=== PATIENT | female | born 1940 | race Caucasian/White ===

== ENCOUNTER 2022-08-07 16:14 | Outpatient (CLI) | payer MEDICARE, BC, SELFPAY ==
--- NOTE | 2022-08-07 16:15 | CRLHL7_ITS ---
For Patients: As a result of the 21st Century Cures Act, medical imaging exams and procedure reports are released immediately into your electronic medical record. You may view this report before your referring provider. If you have questions, please contact your health care provider. EXAM: PET-CT SKULL BASE TO THIGH CLINICAL INFORMATION: 81-yo female with a history of breast cancer with prior lumpectomy 1998. Left axillary surgical excision in 2010. Prior chemotherapy and radiation therapy. Current oral chemotherapy as of December 2021. Patient is referred for further characterization/response assessment. TECHNIQUE: Radiopharmaceutical: 12.0 mCi of 18F-FDG Uptake time: 56 minutes Blood glucose level at the time of injection: 91 mg/dL Field of view: Skull base to mid-thighs Intravenous contrast: Not administered Oral contrast: Not administered CT protocol: The low-dose, free-breathing, noncontrast CT performed as part of this study is designed for the purposes of attenuation correction and lesion localization, and it is neither sufficient, nor it should be substituted for diagnostic purposes. COMPARISON: PET-CT 02/20/2022 FINDINGS: Physiologic background liver standardized uptake value (SUV mean and SUV max) reported for comparison between PET studies: 2.3 and 3.0. Visualized head and neck: Physiologic uptake in the visualized portions of the brain. Low-attenuation thyroid nodules difficult to see given motion. No abnormal uptake. Head and neck lymph nodes: No abnormal uptake. Lungs: Anterior right upper lobe and biapical scarring. No abnormal right lung uptake. Increased size and uptake of multiple left lung nodules. For example: -anterior left upper lobe nodule, 0.7 cm, SUV 8.8 (fused PET-CT image 63). Previously 0.5 cm, SUV max 4.7. -lateral left upper lobe nodule, 0.8 cm, SUV 11.0 (fused PET-CT image 79). Previously 0.6 cm, SUV max 6.1. -left upper lobe perifissural nodule, 0.7 cm, SUV max 5.4 (fused PET-CT image 86). Previously 0.5 cm, SUV max 2.0. -lateral left lower lobe pleural based nodule, 0.7 cm, SUV max 4.1 (fused PET-CT image 93). Previously 0.5 cm, SUV max 2.8. Thoracic lymph nodes: New avid left perihilar and hilar lymph nodes are suspicious. Existing left axillary nodule/mass and subpectoral benji uptake demonstrate variable activity. No new right axillary lymph nodes. For example: -intensely irregular left axillary mass/nodule, 2.1 x 1.7 cm, SUV max 17.0 (fused PET-CT image 64). Previously 1.8 x 1.5 cm, SUV max 20.3. -left perihilar benji uptake, not measurable, SUV max 6.2 (PET-CT image 79) -left hilar benji uptake, 0.8 cm short axis, SUV max 10.8 (fused PET-CT image 84). Other chest findings: Scattered coronary vascular and thoracic aortic calcifications. -postlumpectomy changes lateral left breast with no suspicious uptake. Slightly more conspicuous left breast skin thickening, SUV max 1.4. Previously 1.2. Attention on exam. -scattered areas of uptake within the thoracic esophagus are nonspecific, possibly reactive/inflammatory or related to reflux. Hepatobiliary: No abnormal liver uptake. More conspicuous uptake along the inferior and medial margin of the right lobe localizes to the gallbladder without obvious noncontrast CT abnormality, SUV max 4.4 (fused PET-CT image 149). Uptake may be misregistered. Previously slightly different location, SUV max 4.3. Directed ultrasound should be considered. Spleen: No abnormal uptake. Pancreas: No abnormal uptake. Adrenals: No abnormal uptake. Kidneys and bladder: No abnormal uptake. Physiologically excreted tracer activity within the renal collecting systems and urinary bladder. Bowel and peritoneum: Similar nondistended appearance of the upper body and fundus of the stomach. No outlet obstruction. No suspicious small or large bowel uptake. Normal appendix. Pelvic organs: Prior hysterectomy. No abnormal uptake. Abdominopelvic lymph nodes: No hypermetabolic abdominopelvic lymph nodes. Musculoskeletal, soft tissues, skin: No new tracer avid osseous lesions. Similar mild uptake in or along the margins of the left anterior 2nd rib, SUV max 2.4. Previously 2.1. Degenerative uptake in the shoulders and spine. Other: Scattered aortoiliac atherosclerotic vascular calcifications. IMPRESSION: 1. Postsurgical and post treatment changes of the left breast with slightly more conspicuous skin thickening and uptake. No new or suspicious uptake at the lumpectomy site. 2. Mildly increased size and decreased uptake of an intensely avid left axillary soft tissue mass/nodule. 3. Mildly increased size and uptake of multiple left lung nodules is consistent with mild interval progression of pulmonary metastatic disease. 4. New moderate to intense uptake within nonenlarged left hilar/perihilar lymph nodes is suspicious. 5. More conspicuous uptake along the medial and inferior liver margin localizing to the region of the gallbladder without definitive noncontrast CT abnormality. Consider directed ultrasound for further characterization. 6. No new tracer avid osseous lesions. Similar mild uptake within or along the margins of the left 2nd rib. Dictated by Syd Bright MD @ 08/10/2022 9:13:57 PM (Electronically Signed)
== END 2022-08-07 16:15 | disposition home or self-care (01) ==
LOC: RAD 16:15
PROVIDERS: PCP Family Medicine; Visit Provider Internal Medicine Hematology & Oncology
DX: C50.919 Malignant neoplasm of unspecified site of unspecified female breast (principal); C77.3 Secondary and unspecified malignant neoplasm of axilla and upper limb lymph nodes; R91.8 Other nonspecific abnormal finding of lung field; R59.9 Enlarged lymph nodes, unspecified
CPT/HCPCS: 78815; A9552

== ENCOUNTER 2022-08-15 09:54 | Outpatient (CLI) | payer MEDICARE, BC, SELFPAY | END 2022-08-15 09:55 | disposition home or self-care (01) | LOC: RAD 09:55 | PROVIDERS: PCP Family Medicine; Visit Provider Internal Medicine Hematology & Oncology | DX: Z79.899 Other long term (current) drug therapy (principal); Z51.81 Encounter for therapeutic drug level monitoring | CPT/HCPCS: 93306 ==

== ENCOUNTER 2022-09-01 06:07 | Day surgery (SDC) | payer MEDICARE, BC, SELFPAY ==
[2022-09-01 06:57] VITALS: BP 141/60; PULSE 52; RESP 16; TEMP 36.1; O2SAT 95; BMI 25.7
[2022-09-01] MEDS: LACTATED RINGERS 1000 ML 1,000 ML 100 ML IV (07:00)
[2022-09-01] MEDS: SODIUM CHLORIDE 0.9 % (FLUSH) 10 ML SYRINGE IVF (07:00)
--- NOTE | 2022-09-01 07:13 | CRLHL7_ITS ---
For Patients: As a result of the Century Cures Act, medical imaging exams and procedure reports are released immediately into your electronic medical record. You may view this report before your referring provider. If you have questions, please contact your health care provider. Indication: PORTACATH PLACEMENT Technique: One fluoroscopic image of the chest. Fluoroscopic time 16.9 seconds. IMPRESSION: Fluoroscopic guidance for Port-A-Cath placement. Dictated by Ricardo Schaefer MD @ 09/01/2022 9:00:11 AM (Electronically Signed)
--- NOTE | 2022-09-01 07:39 | PM.GSCN ---
History of Present Illness Consult details Date Seen: 09/01/22 Consult date: 09/01/22 Narrative: The patient is an 81-year-old female with a history of recurrent breast cancer, initially treated in 1998 as well as again in 2010 when she developed a left axillary recurrence. She has had an additional recurrence with lung nodule and progression of disease and therefore has been offered chemotherapy. She is here today for port placement. She has had chemotherapy in the past but has never had a port. No chest pain or shortness of breath. No upper respiratory symptoms. 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 She drinks rare alcohol Smoking Status: Never smoker Do you use any of these nicotine containing products: None How often do you have a drink containing alcohol: never AUDIT-C Alcohol total score: 0 Non-prescribed substance use: denies use Caffeine: No Are you using contraception or practicing any form of control: No Meds Home Medications and Allergies Home Medications Medication Instructions Recorded Confirmed Type aspirin 81 mg tablet,delayed 81 mg PO QDAY 07/02/22 09/01/22 History release (Adult Low Dose Aspirin) bismuth subsalicylate 262 mg 1 tab PO Q30-60M PRN 07/02/22 09/01/22 History tablet (Pepto-Bismol) calcium carb-ergocalciferol (vit 1 tab PO BID 07/02/22 09/01/22 History D2) 600 mg calcium-200 unit tablet ferrous gluconate 324 mg (38 mg 324 mg PO DAILY 08/27/22 09/01/22 History iron) tablet metoprolol tartrate 25 mg tablet 12.5 mg PO Q12H 08/27/22 09/01/22 History Allergies Allergy/AdvReac Type Severity Reaction Status Date / Time No Known Drug Allergies Allergy Verified 09/01/22 06:55 Exam Narrative: Exam Narrative: General appearance: Alert, cooperative, and in no distress Eyes: PERRLA, eye lids clear, and sclera white HENT Head: Normocephalic Neck: Pulmonary: Clear to auscultation bilaterally Chest: no scars Cardiovascular Heart: Regular rate Extremities: warm and well perfused Musculoskeletal: Extremities: Upper: Both upper extremities have normal joint range of motion and intact strength. Lower: Both lower extremities have normal joint range of motion and intact strength. Skin: Normal skin color, texture, and turgor. No rashes or lesions. Neurologic: No focal deficits Psychiatric: Alert, oriented, cooperative, normal affect. Const: Vital Signs, click to edit/add: Vital Signs - 24 hr 09/01/22 06:57 Temperature 97.0 F L Pulse Rate 52 L Respiratory Rate 16 Blood Pressure 141/60 H Pulse Oximetry 95 Results Labs Labs: All other labs normal. Imaging Additional studies: PET-CT 08/07/2022: IMPRESSION: 1. Postsurgical and post treatment changes of the left breast with slightly more conspicuous skin thickening and uptake. No new or suspicious uptake at the lumpectomy site. 2. Mildly increased size and decreased uptake of an intensely avid? left axillary soft tissue mass/nodule. 3. Mildly increased size and uptake of multiple left lung nodules is consistent with mild interval progression of pulmonary metastatic disease. 4. New moderate to intense uptake within nonenlarged left hilar/perihilar lymph nodes is suspicious. 5. More conspicuous uptake along the medial and inferior liver margin localizing to the region of the gallbladder without definitive noncontrast CT abnormality. Consider directed ultrasound for further characterization. 6. No new tracer avid osseous lesions. Similar mild uptake within or along the margins of the left 2nd rib. 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 Images were reviewed. There are no contraindications for surgery today. We did discuss risks benefits and recovery from surgery. Patient signed informed consent in is agreeable to proceed.
[2022-09-01] MEDS: CEFAZOLIN 1 GM inj IVP (07:42)
[2022-09-01] MEDS: BUPIVACAINE 0.5% 30 ML INJECTION (07:56)
[2022-09-01] MEDS: 0.9% SODIUM CHL 50 ML VIAL INJECTION (08:05)
--- NOTE | 2022-09-01 08:24 | CRLHL7_ITS ---
For Patients: As a result of the Century Cures Act, medical imaging exams and procedure reports are released immediately into your electronic medical record. You may view this report before your referring provider. If you have questions, please contact your health care provider. INDICATION: s/p port TECHNIQUE: Chest 1 view COMPARISON: CT-PET 02/20/2022 FINDINGS: Interval placement of right-sided Port-A-Cath with the tip in the distal SVC. No pneumothorax. No pleural effusion. Pulmonary parenchyma appears similar. Stable mediastinum. IMPRESSION: Status post port placement without pneumothorax. Dictated by Ricardo Schaefer MD @ 09/01/2022 9:12:05 AM (Electronically Signed)
[2022-09-01 08:25] VITALS: BP 95/70; PULSE 51; RESP 16; TEMP 36.2; O2SAT 97
--- NOTE | 2022-09-01 08:30 | W.ANESCHARGE ---
Anesthesia Charges Start Date/Time Anesthesia Start Date: 09/01/22 Anesthesia Start Time: 07:34 Stop Date/Time Anesthesia Stop Date: 09/01/22 Anesthesia Stop Time: 08:28 Summary Emergency: No Extremes of Age: Over 69-CPT 00128
[2022-09-01 08:45] VITALS: BP 98/57; PULSE 60; RESP 16; TEMP 36.1; O2SAT 96
--- NOTE | 2022-09-01 08:46 | P.GSOP_ITS ---
Operative Note Date of procedure: 09/01/22 Type of Procedure: Right IJ port placement with ultrasound and fluoroscopic guidance Procedure Description: After discussing the risks and benefits of the procedure, the patient signed informed consent.? The operative site was marked and the patient was brought to the operating room and placed on the operating table in supine position.? Care was taken to pad the patient's pressure points.?? The patient was then given sed ation by anesthesia.?? The operative site was then prepped and draped in the usual sterile fashion.? A time-out was then performed. The patient's right internal jugular vein was visualized using ultrasound. Local anesthetic was injected into the skin overlying the vein. This was accessed percutaneously using ultrasound guidance. Using Seldinger technique, a guidewire was threaded through the needle. A skin lona was made around the wire. Next, local anesthetic was injected into the skin below the clavicle and along the proposed tract to the neck incision. A skin incision was then made with a 15 blade and a pocket created in the subcutaneous tissue with cautery. A tunneler was then used to thread the catheter from the chest wall pocket to the neck incision. Once this was done fluoroscopy was brought into the field. Over the wire the tract was dilated using fluoroscopy. The wire and the dilator were then removed leaving the sheath in the vein. Through this, the catheter was threaded. Using fluoroscopy, the catheter was positioned into the distal SVC. The catheter was noted to flush and aspirate easily. The catheter was then connected to the port. The port was placed in the pocket and secured in place with 2 0 Prolene sutures. It was noted to flush and aspirate easily. The skin was closed with absorbable suture. Sterile dressings were applied. The port was then left access for chemotherapy to be given later today. Instrument sponge and needle counts were correct at the end of the case. The patient was woken and taken to the PACU in stable condition. ? The patient tolerated the procedure well. Findings: Right IJ power port placed in the low SVC. Implants: Power port Anesthesia: MAC Surgeon: Stephanie Reyna MD Estimated blood loss (mL): 1 Condition: stable Disposition: same day
[2022-09-01 09:15] VITALS: BP 104/52; PULSE 60; TEMP 36.3; O2SAT 96
[2022-09-01] MEDS: TRAMADOL HCL 50 MG TABLET PO (09:29)
--- NOTE | 2022-09-01 09:42 | SUR.PHASEII ---
eating toast and drinking coffee, tolerating well. reviewed discharge instructions with patient and patients daughter in law. no further questions or concerns. vitals stable, port access patent, dressing intact.
== END 2022-09-01 10:31 | disposition home or self-care (01) ==
PROVIDERS: PCP Family Medicine; Visit Provider Surgery
PROC: (CPT 36561; principal; 2022-09-01 07:30)
DX: Z45.2 Encounter for adjustment and management of vascular access device (principal); C50.912 Malignant neoplasm of unspecified site of left female breast; C77.3 Secondary and unspecified malignant neoplasm of axilla and upper limb lymph nodes; C78.02 Secondary malignant neoplasm of left lung
CPT/HCPCS: 36561; 00532; 36591; 71045; 76000; 80053; 85025; 87426; 96376; 96413; 96415; 99100; 99211; 99213; A9270; C1788; J0690; J1100; J1200; J2405; J2704; J3490; J7050; J7120; Q2050; S0028

== ENCOUNTER 2022-10-28 10:48 | Inpatient (IN) | payer MEDICARE, BC, SELFPAY ==
[2022-10-28] VITALS (59 sets, daily range): BP systolic 74–137; BP diastolic 46–100; PULSE 32–154; RESP 16; TEMP 35.8–36.8; O2SAT 86–100; BMI 26.5; BMI 25.6
[2022-10-28 11:49] LABS: HCO3 VBG 32 mmol/L (21-28); Lactate* 0.8 mmol/L (0.5-1.9); PCO2 VBG 51 mmHG (40-50); PO2 VBG 41.4 mmHG (25-47); pH VBG 7.414 (7.32-7.43)
[2022-10-28 11:50] LABS: Basophils Percent Auto 0.5 % (0.0-3.0); Eosinophils Percent Auto 2.3 % (0.0-7.0); Hematocrit 32.6 % (33.0-51.0); Hemoglobin* 10.7 gm/dL (12.0-16.0); Immature Granulocytes Pct Auto 0.2 %; Lymphocytes Percent Auto 31.5 % (20-44); Mean Corpuscular HGB Conc 33 gm/dL (32-36); Mean Corpuscular Hemoglobin 32 pg (26-34); Mean Corpuscular Volume 97 fL (80-100); Neutrophils Percent Auto 55.5 % (42.0-72.0); Platelet Count* 324 K/uL (140-440); RDW Coefficient of Variation % 14.2 % (11.5-15.5); Red Blood Count 3.37 m/uL (4.00-5.20); White Blood Count* 4.32 K/uL (4.50-11.00)
[2022-10-28 11:52] LABS: Slide Review Reflex No
[2022-10-28 12:03] LABS: PCR FLU A Negative PCR FLU A (Negative); PCR FLU B Negative PCR FLU B (Negative); PCR RSV Negative PCR RSV (Negative)
[2022-10-28 12:09] LABS: Albumin* 3.9 g/dL (3.3-5.0); Chloride* 100 mmol/L (96-114); Sodium* 138 mmol/L (135-149)
[2022-10-28 12:10] LABS: Potassium* 3.6 mmol/L (3.6-5.1)
[2022-10-28 12:11] LABS: SARS PCR* Negative SARS-CoV-2 (Negative)
[2022-10-28 12:13] LABS: Alanine Aminotransferase* 20 U/L (4-35); Alkaline Phosphatase* 67 U/L (40-150); Aspartate Amino Transferase* 26 U/L (12-35); Bilirubin Direct* 0.2 mg/dL (0.0-0.5); Bilirubin Total* 0.5 mg/dL (0.1-1.5); Blood Urea Nitrogen* 16 mg/dL (7-30); Calcium* 9.2 mg/dL (8.4-10.6); Carbon Dioxide* 31 mmol/L (20-32); Creatinine* 0.6 mg/dL (0.5-1.5); Est. Creatinine Clearance* 39.03; Estimated Glomerular Filt Rate 90 ml/min; Glucose* 95 mg/dL (60-115); Total Protein* 6.9 g/dL (6.0-8.3)
[2022-10-28] MEDS: METOPROLOL TARTRATE 1 MG/ML inj 5 MG IVP (12:14)
[2022-10-28 12:15] LABS: C Reactive Protein* 3.3 mg/dL (0.5-1.0)
[2022-10-28] MEDS: 0.9 % SODIUM CHLORIDE 1000 ml 1,000 ML IV (12:15)
[2022-10-28 12:19] LABS: Appearance Urine Clear (Clear); Bilirubin Urine Negative (Negative); Blood Urine Negative (Negative); Color Urine Dark yellow (Yellow); Glucose Urine Negative (Negative); Ketones Urine Negative (Negative); Leukocyte Esterase Urine Negative (Negative); Nitrite Urine Negative (Negative); Protein Urine Negative (Negative); Specific Gravity Urine 1.025 (1.000-1.030); Urobilinogen Urine 0.2 (0.2-1.0); pH Urine 5.5 (5.0-8.5)
[2022-10-28 12:19] LABS: INR 1.01 (0.91-1.10); Prothrombin Time 13.9 Seconds
[2022-10-28 12:29] LABS: RBC Urine 0-2 (0-2); WBC Urine 0-2 (0-5)
[2022-10-28] MEDS: dilTIAZem 5 MG/ML inj 10 MG IVP (13:50)
[2022-10-28] MEDS: cefTRIAXone 1 GM in 0.9 % SODIUM CHLORIDE Mini-bag 100 ML IVPB (13:50)
[2022-10-28] MEDS: 0.9 % SODIUM CHLORIDE 1000 ml 1,000 ML 100 ML IV (14:45)
[2022-10-28] MEDS: dilTIAZem 30 MG TABLET PO (15:00)
--- NOTE | 2022-10-28 15:02 | ED_ITS ---
HPI - General Adult General Date Seen: 10/28/22 Chief complaint: Lower Extremity Swelling Stated complaint: Colitis right foot Time Seen by Provider: 10/28/22 11:08 Source: patient, family, old records reviewed and other Limitations: no limitations History of Present Illness HPI narrative: Patient is an 81-year-old woman sent here from clinic for further evaluation and treatment of persistent cellulitis. She has been dealing with cellulitis of the right lower extremity since the end of September, at which time she was initially started on amoxicillin. She did not respond and was changed to doxycycline. She had been seen in [place] on October 24, those records are reviewed. At that time she had a venous Doppler which was negative for DVT. Labs were unremarkable. She was advised to follow up with primary care which she did today. At the clinic she was noted to have mildly elevated temperature 99.7?. She denies fevers or chills at home. No nausea or vomiting, no weakness. She feels overall the leg looks better today than it has, although she is concerned about increased weeping from the open area. She continues to have some erythema in the right lower leg, she has some pain in that area. She has also developed an area of open skin over the past week. She was noted to be tachycardic in clinic as well. She does have a history of atrial fibrillation. She is on Eliquis. She does have a history of breast cancer and is undergoing treatment for that. She does not have a history of diabetes. She is here today with her [id number] who provides help with history in terms of the time line of when she was at [place] [id number], when she was at urgent care, when medications were started etcetera. Related Data Home Medications Medication Instructions Recorded Confirmed aspirin 81 mg tablet,delayed 81 mg PO DAILY 07/02/22 10/28/22 release (Adult Low Dose Aspirin) bismuth subsalicylate 262 mg 1 tab PO Q30-60M PRN 07/02/22 10/28/22 tablet (Pepto-Bismol) calcium carb-ergocalciferol (vit 1 tab PO BID 07/02/22 10/28/22 D2) 600 mg calcium-200 unit tablet ferrous gluconate 324 mg (38 mg 324 mg PO DAILY 08/27/22 10/28/22 iron) tablet metoprolol tartrate 25 mg tablet 12.5 mg PO BID 08/27/22 10/28/22 anastrozole 1 mg tablet 1 mg PO DAILY 10/28/22 10/28/22 apixaban 5 mg tablet (Eliquis) 5 mg PO BID 10/28/22 10/28/22 doxycycline monohydrate 100 mg 100 mg PO BID 10/28/22 10/28/22 capsule hydrochlorothiazide 25 mg tablet 25 mg PO DAILY 10/28/22 10/28/22 Previous Rx's Medication Instructions Recorded prochlorperazine maleate 5 mg 5 mg PO TID PRN nausea and 08/13/22 tablet (Compazine) vomiting #60 tabs Allergies Allergy/AdvReac Type Severity Reaction Status Date / Time No Known Drug Allergies Allergy Verified 10/28/22 11:00 Review of Systems Status of ROS: Reports: 10 or more systems reviewed and unremarkable except as noted in History and below [facility] Medical History (Updated 10/28/22 @ 20:12 by Alejandra Houser MD) 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 Rare ETOH use. 3 living children, daughter Latanya ([phone]) would be medical decision maker if needed. One son at age 39, had CP. 2019. Worked at [employer]. Highest level of school completed/degree received: 10th grade Smoking Status: Never smoker Do you use any of these nicotine containing products: None Second hand tobacco smoke exposure: No How often do you have a drink containing alcohol: monthly or less How often do you have six or more drinks on one occasion: Never AUDIT-C Alcohol total score: 1 Non-prescribed substance use: denies use Caffeine: No Are you using contraception or practicing any form of control: No service: No Exam Narrative: Exam Narrative: Vital signs as noted above. In general, an alert, well-appearing elderly woman. Head: Normocephalic, atraumatic. Eyes: Pupils are equal reactive. Extraocular movements are full. Conjunctivae are normal. ENT: Mucous membranes are moist. Throat is normal. Neck: Supple without lymphadenopathy. Heart: Irregularly irregular. No apparent murmur although heart rate is fast and difficult to auscultate. Lungs: Clear bilaterally. No increased work of breathing, crackles or wheezes. Abdomen: Soft and nontender. No organomegaly. Extremities: I am not able to palpate pulses in either foot. Capillary refill is brisk and skin is warm. On the right, there is an approximately 5 by 2 cm area of sloughed skin with some serous weeping. No purulence. No odor. Surrounding this, there is erythema to mid allen and down to the ankle. This does have the appearance of a more chronic, venous stasis type erythema. There is some warmth. There is no crepitus or subQ air. No fluctuance. Neurologic: Patient is alert and oriented to person and place. Speech is fluent. Face is symmetric. Moves all extremities equally. Affect: Normal. Skin: Warm and dry. Well perfused. Const: Vital Signs, click to edit/add: Vital Signs - 24 hr 10/28/22 10:55 10/28/22 11:11 10/28/22 11:12 Temperature 97.6 F Pulse Rate 154 H Pulse Rate [Left P ulse Oximeter] Pulse Rate [Pulse Oximeter] 88 Respiratory Rate 16 Blood Pressure 124/81 Blood Pressure [Ri ght Upper Arm] 101/68 Pulse Oximetry 98 100 100 Oxygen Delivery Me thod Room Air 10/28/22 11:15 10/28/22 11:30 10/28/22 11:32 Temperature Pulse Rate Pulse Rate [Left P ulse Oximeter] Pulse Rate [Pulse Oximeter] Respiratory Rate Blood Pressure 126/97 H Blood Pressure [Ri ght Upper Arm] Pulse Oximetry 100 100 100 Oxygen Delivery Me thod 10/28/22 11:45 10/28/22 12:00 10/28/22 12:17 Temperature Pulse Rate 93 Pulse Rate [Left P ulse Oximeter] Pulse Rate [Pulse Oximeter] Respiratory Rate Blood Pressure Blood Pressure [Ri ght Upper Arm] Pulse Oximetry 99 98 86 L Oxygen Delivery Ok thod 10/28/22 12:20 10/28/22 12:24 10/28/22 12:30 Temperature Pulse Rate 32 L Pulse Rate [Left P ulse Oximeter] Pulse Rate [Pulse Oximeter] Respiratory Rate Blood Pressure 104/78 105/81 Blood Pressure [Ri ght Upper Arm] Pulse Oximetry 100 100 91 Oxygen Delivery Me thod 10/28/22 12:32 10/28/22 12:33 10/28/22 12:40 Temperature Pulse Rate 83 87 Pulse Rate [Left P ulse Oximeter] Pulse Rate [Pulse Oximeter] Respiratory Rate Blood Pressure 120/72 Blood Pressure [Ri ght Upper Arm] Pulse Oximetry 99 100 100 Oxygen Delivery Me thod 10/28/22 12:42 10/28/22 12:51 10/28/22 12:52 Temperature Pulse Rate 51 L Pulse Rate [Left P ulse Oximeter] Pulse Rate [Pulse Oximeter] Respiratory Rate Blood Pressure 99/73 99/77 Blood Pressure [Ri ght Upper Arm] Pulse Oximetry 99 100 98 Oxygen Delivery Me thod 10/28/22 13:00 10/28/22 13:03 10/28/22 13:10 Temperature Pulse Rate 119 H 58 L Pulse Rate [Left P ulse Oximeter] Pulse Rate [Pulse Oximeter] Respiratory Rate Blood Pressure 126/100 H Blood Pressure [Ri ght Upper Arm] Pulse Oximetry 99 98 Oxygen Delivery Me thod 10/28/22 13:12 10/28/22 13:22 10/28/22 13:25 Temperature Pulse Rate 150 H Pulse Rate [Left P ulse Oximeter] Pulse Rate [Pulse Oximeter] Respiratory Rate Blood Pressure 114/80 103/92 H Blood Pressure [Ri ght Upper Arm] Pulse Oximetry 99 95 Oxygen Delivery Me thod 10/28/22 13:30 10/28/22 13:32 10/28/22 13:40 Temperature Pulse Rate 66 146 H Pulse Rate [Left P ulse Oximeter] Pulse Rate [Pulse Oximeter] Respiratory Rate Blood Pressure 118/91 H Blood Pressure [Ri ght Upper Arm] Pulse Oximetry 95 100 98 Oxygen Delivery Me thod 10/28/22 13:42 10/28/22 13:50 10/28/22 13:51 Temperature Pulse Rate 90 Pulse Rate [Left P ulse Oximeter] Pulse Rate [Pulse Oximeter] Respiratory Rate Blood Pressure 109/80 92/72 Blood Pressure [Ri ght Upper Arm] Pulse Oximetry 100 100 100 Oxygen Delivery Me thod 10/28/22 13:57 10/28/22 14:00 10/28/22 14:01 Temperature Pulse Rate Pulse Rate [Left P ulse Oximeter] Pulse Rate [Pulse Oximeter] Respiratory Rate Blood Pressure 89/65 L 109/72 Blood Pressure [Ri ght Upper Arm] Pulse Oximetry 100 100 99 Oxygen Delivery Me thod 10/28/22 14:07 10/28/22 14:10 10/28/22 14:12 Temperature Pulse Rate Pulse Rate [Left P ulse Oximeter] Pulse Rate [Pulse Oximeter] Respiratory Rate Blood Pressure 97/55 L 77/52 L Blood Pressure [Ri ght Upper Arm] Pulse Oximetry 100 100 99 Oxygen Delivery Me thod 10/28/22 14:16 10/28/22 14:20 10/28/22 14:22 Temperature Pulse Rate 137 H 107 H Pulse Rate [Left P ulse Oximeter] Pulse Rate [Pulse Oximeter] Respiratory Rate Blood Pressure 96/50 L 103/62 Blood Pressure [Ri ght Upper Arm] Pulse Oximetry 98 100 99 Oxygen Delivery Me thod 10/28/22 14:27 10/28/22 14:30 10/28/22 14:31 Temperature Pulse Rate 146 H Pulse Rate [Left P ulse Oximeter] Pulse Rate [Pulse Oximeter] Respiratory Rate Blood Pressure 84/46 L 80/52 L Blood Pressure [Ri ght Upper Arm] Pulse Oximetry 99 100 95 Oxygen Delivery Me thod 10/28/22 14:36 10/28/22 14:40 10/28/22 14:42 Temperature Pulse Rate 78 Pulse Rate [Left P ulse Oximeter] Pulse Rate [Pulse Oximeter] Respiratory Rate Blood Pressure 94/64 77/51 L Blood Pressure [Ri ght Upper Arm] Pulse Oximetry 99 100 98 Oxygen Delivery Me thod 10/28/22 14:43 10/28/22 14:47 10/28/22 14:49 Temperature 96.5 F L Pulse Rate 134 H Pulse Rate [Left P ulse Oximeter] Pulse Rate [Pulse Oximeter] Respiratory Rate 16 Blood Pressure 89/48 L 74/54 L 89/63 L Blood Pressure [Ri ght Upper Arm] Pulse Oximetry 99 98 100 Oxygen Delivery Me thod 10/28/22 14:50 10/28/22 14:52 10/28/22 14:53 Temperature Pulse Rate 95 Pulse Rate [Left P ulse Oximeter] Pulse Rate [Pulse Oximeter] Respiratory Rate Blood Pressure 90/56 L Blood Pressure [Ri ght Upper Arm] Pulse Oximetry 100 100 100 Oxygen Delivery Me thod 10/28/22 14:57 10/28/22 15:01 10/28/22 15:02 Temperature 96.5 F L Pulse Rate Pulse Rate [Left P ulse Oximeter] Pulse Rate [Pulse Oximeter] Respiratory Rate Blood Pressure 80/57 L 101/71 Blood Pressure [Ri ght Upper Arm] Pulse Oximetry 100 100 Oxygen Delivery Me thod 10/28/22 15:19 10/28/22 15:19 10/28/22 15:19 Temperature 97.2 F L Pulse Rate Pulse Rate [Left P ulse Oximeter] 109 H Pulse Rate [Pulse Oximeter] Respiratory Rate 16 16 Blood Pressure Blood Pressure [Ri ght Upper Arm] Pulse Oximetry 98 98 99 Oxygen Delivery Me thod Room Air Room Air 10/28/22 15:28 Temperature Pulse Rate 106 H Pulse Rate [Left P ulse Oximeter] Pulse Rate [Pulse Oximeter] Respiratory Rate Blood Pressure Blood Pressure [Ri ght Upper Arm] Pulse Oximetry Oxygen Delivery Me thod Documenting provider has reviewed patient's vital signs: yes Course Course Hospital Course: Following initial evaluation, patient was maintained on the monitor and oximetry. An IV was established. She had an EKG which by my review showed atrial fibrillation with rapid ventricular response, heart rate of 143. She has ST depression in the lateral leads, no changes in the inferior leads. No ST elevation. Labs were drawn including blood cultures, CBC which showed a decreased white blood cell count of 4.32, hemoglobin of 10.7. Platelets normal. Diff is normal. INR was 1. Blood gas really unremarkable. Metabolic panel was normal, BUN creatinine are normal. Blood sugar of 95. Lactate was 0.8. LFTs were unremarkable. CRP is 3.3. Troponin is pending. Urinalysis was negative. Urine culture pending. COVID was negative. With regard to her atrial fibrillation, she does take metoprolol, and so I initially tried IV metoprolol, 5 mg. This did not have any appreciable impact on her heart rate. Her blood pressure was stable. I then tried IV diltiazem, 10 mg. The nurse reported blood pressures of 77 systolic after the diltiazem, however when I recheck the patient she had good radial pulses, was mentating well, and immediate recheck of her blood pressure showed a systolic blood pressure of 96. Her arm tends to be flexed at the elbow when her blood pressures checked and I think that is contributing to some low blood pressures. Her heart rate did come down into the low 100s with diltiazem, and ultimately she had a heart rate in the 90s with a blood pressure of 103 systolic. She had a L of normal saline initially, and now has normal saline running at 100 per ho ur. I gave her Rocephin 1 g IV. She did have a wound culture done prior to this, and also had an MRSA nasal culture. Were able to Doppler pulses in the right lower extremity. I do wonder about some chronic venous or chronic arterial insufficiency contributing to the symptoms in her right lower extremity given the appearance of this. For now, plan will be admission for IV antibiotics as well as management of her atrial fibrillation with rapid ventricular response. She is currently without complaints. Vital Signs Vital signs: Initial Vital Signs Temperature 97.6 F 10/28/22 10:55 Temperature Source Oral 10/28/22 10:55 Pulse Rate 88 10/28/22 10:55 Pulse Rhythm 10/28/22 10:55 Pulse Strength 3+ Normal 10/28/22 10:55 Respiratory Rate 16 10/28/22 10:55 Blood Pressure 101/68 10/28/22 10:55 Blood Pressure Mean 79 10/28/22 10:55 Blood Pressure Position Sitting 10/28/22 10:55 Pulse Oximetry 98 10/28/22 10:55 Oxygen Delivery Method 10/28/22 10:55 Vital Signs Temperature 97.6 F 10/28/22 10:55 Pulse Rate 88 10/28/22 10:55 Respiratory Rate 16 10/28/22 10:55 Blood Pressure 101/68 10/28/22 10:55 Pulse Oximetry 98 10/28/22 10:55 Oxygen Delivery Method 10/28/22 10:55 Temperature 97.2 F L 10/28/22 16:56 Pulse Rate 109 H 10/28/22 16:56 Respiratory Rate 16 10/28/22 16:56 Blood Pressure 101/71 10/28/22 15:02 Pulse Oximetry 98 10/28/22 16:56 Oxygen Delivery Method 10/28/22 16:56 Medical Decision Making Lab Data Labs: Lab Results 10/28/22 10/28/22 10/28/22 Range/Units 11:05 11:25 11:25 WBC 4.32 L (4.50-11.00) K/uL RBC 3.37 L (4.00-5.20) m/uL Hgb 10.7 L (12.0-16.0) gm/dL Hct 32.6 L (33.0-51.0) % MCV 97 (80-100) fL MCH 32 (26-34) pg MCHC 33 (32-36) gm/dL RDW Coeff of Jignesh 14.2 (11.5-15.5) % Plt Count 324 (140-440) K/uL Neut % (Auto) 55.5 (42.0-72.0) % Lymph % (Auto) 31.5 (20-44) % Kay % (Auto) 10.0 (0.0-11.0) % Eos % (Auto) 2.3 (0.0-7.0) % Baso % (Auto) 0.5 (0.0-3.0) % Neut # (Auto) 2.40 (1.7-7.0) K/uL Lymph # (Auto) 1.40 (0.90-2.90) K/uL Kay # (Auto) 0.40 (0.00-0.90) K/UL Eos # (Auto) 0.10 (0.00-0.50) K/uL Baso # (Auto) 0.00 (0.00-0.30) K/uL INR 1.01 (0.91-1.10) VBG pH (7.32-7.43) VBG pCO2 (40-50) mmHG VBG pO2 (25-47) mmHG VBG HCO3 (21-28) mmol/L Sodium (135-149) mmol/L Potassium (3.6-5.1) mmol/L Chloride (96-114) mmol/L Carbon Dioxide (20-32) mmol/L BUN (7-30) mg/dL Creatinine (0.5-1.5) mg/dL Estimated Creat Clear Estimated GFR ml/min Glucose (60-115) mg/dL Lactate (0.5-1.9) mmol/L Calcium (8.4-10.6) mg/dL Total Bilirubin (0.1-1.5) mg/dL Direct Bilirubin (0.0-0.5) mg/dL AST (12-35) U/L ALT (4-35) U/L Alkaline Phosphatase (40-150) U/L Troponin I (0.01-0.04) ng/mL C-Reactive Protein (0.5-1.0) mg/dL Total Protein (6.0-8.3) g/dL Albumin (3.3-5.0) g/dL Urine Color (Yellow) Urine Appearance (Clear) Urine pH (5.0-8.5) Ur Specific [place] (1.000-1.030) Urine Protein (Negative) Urine Glucose (UA) (Negative) Urine Ketones (Negative) Urine Blood (Negative) Urine Nitrite (Negative) Urine Bilirubin (Negative) Urine Urobilinogen (0.2-1.0) Ur Leukocyte Esterase (Negative) Urine RBC (0-2) Urine WBC (0-5) Ur Squamous Epith Cells (None-Few) Urine Bacteria (None) SARS-CoV-2 (PCR) Negative SARS-CoV-2 (Negative) Influenza Type A (PCR) Negative PCR FLU A (Negative) Influenza Type B (PCR) Negative PCR FLU B (Negative) RSV (PCR) Negative PCR RSV (Negative) 10/28/22 10/28/22 10/28/22 Range/Units 11:25 11:25 12:00 WBC (4.50-11.00) K/uL RBC (4.00-5.20) m/uL Hgb (12.0-16.0) gm/dL Hct (33.0-51.0) % MCV (80-100) fL MCH (26-34) pg MCHC (32-36) gm/dL RDW Coeff of Jignesh (11.5-15.5) % Plt Count (140-440) K/uL Neut % (Auto) (42.0-72.0) % Lymph % (Auto) (20-44) % Kay % (Auto) (0.0-11.0) % Eos % (Auto) (0.0-7.0) % Baso % (Auto) (0.0-3.0) % Neut # (Auto) (1.7-7.0) K/uL Lymph # (Auto) (0.90-2.90) K/uL Kay # (Auto) (0.00-0.90) K/UL Eos # (Auto) (0.00-0.50) K/uL Baso # (Auto) (0.00-0.30) K/uL INR (0.91-1.10) VBG pH 7.414 (7.32-7.43) VBG pCO2 51 H (40-50) mmHG VBG pO2 41.4 (25-47) mmHG VBG HCO3 32 H (21-28) mmol/L Sodium 138 (135-149) mmol/L Potassium 3.6 (3.6-5.1) mmol/L Chloride 100 (96-114) mmol/L Carbon Dioxide 31 (20-32) mmol/L BUN 16 (7-30) mg/dL Creatinine 0.6 (0.5-1.5) mg/dL Estimated Creat Clear 39.03 Estimated GFR 90 ml/min Glucose 95 (60-115) mg/dL Lactate 0.8 (0.5-1.9) mmol/L Calcium 9.2 (8.4-10.6) mg/dL Total Bilirubin 0.5 (0.1-1.5) mg/dL Direct Bilirubin 0.2 (0.0-0.5) mg/dL AST 26 (12-35) U/L ALT 20 (4-35) U/L Alkaline Phosphatase 67 (40-150) U/L Troponin I < 0.01 L (0.01-0.04) ng/mL C-Reactive Protein 3.3 H (0.5-1.0) mg/dL Total Protein 6.9 (6.0-8.3) g/dL Albumin 3.9 (3.3-5.0) g/dL Urine Color Dark yellow (Yellow) Urine Appearance Clear (Clear) Urine pH 5.5 (5.0-8.5) Ur Specific [place] 1.025 (1.000-1.030) Urine Protein Negative (Negative) Urine Glucose (UA) Negative (Negative) Urine Ketones Negative (Negative) Urine Blood Negative (Negative) Urine Nitrite Negative (Negative) Urine Bilirubin Negative (Negative) Urine Urobilinogen 0.2 (0.2-1.0) Ur Leukocyte Esterase Negative (Negative) Urine RBC 0-2 (0-2) Urine WBC 0-2 (0-5) Ur Squamous Epith Cells None (None-Few) Urine Bacteria None (None) SARS-CoV-2 (PCR) (Negative) Influenza Type A (PCR) (Negative) Influenza Type B (PCR) (Negative) RSV (PCR) (Negative)
--- NOTE | 2022-10-28 15:18 | ED.NURSE ---
Patient transfered to M/S room 258. Report given to MARCOS Saab. All belongings sent with patient. Blood pressure was low in ER and MD aware. OKay to give PO diltiazem prior to going to floor.
--- NOTE | 2022-10-28 16:06 | P.IMHP_ITS ---
Hospitalist- H&P: HPI History of Present Illness Date Seen: 10/28/22 Chief complaint: Colitis right foot Narrative: Chacorta yCr is a 81 year old female who presented to the emergency room from [facility] locally for persistent right lower extremity cellulitis, failed outpatient antibiotics x2. She was seen by Dr. Neves of Oncology (breast cancer f/u) on 10/08/22, at that time noted to have right lower extremity cellulitis and edema. She was started on Augmentin and Lasix. Following this course of antibiotics, minimal improvement was noted, so she was put on doxycycline by a different clinician on 10/21. She was then seen at the [place] [id number] ED on 10/24 for continued pr ogression; they performed an ultrasound (negative for DVT), no antibiotic changes made at that time. Over the past few days, she has noted + skin breakdown over the right anterior lower extremity with drainage. Today, she saw her PCP, Dr. Dash, who noted minimal improvement to the cellulitis, in addition to AFib with HR of 120 (known history of a fib, patient typically asymptomatic). PCP performed a wound culture, then requested that patient come to the ER for further workup and management. ER course and findings: - AFib with RVR, heart rate in the 140s. Treated with metoprolol 5 mg p.o. x1, followed by IV diltiazem. Rate was then stable at <100 - wound and MRSA cultures obtained - given 1 g ceftriaxone - leukopenia, mild elevation of CRP at 3.3 Patient has history of recurrent breast cancer, follows with Oncology locally. Per outpatient record: ONCOLOGIC TREATMENT HISTORY:? 1. Left breast lumpectomy in 1998 for left breast cancer. 2. Surgical excision of left axillary recurrence in June 2011. 3. Adjuvant radiation therapy to the left axilla, post surgical resection. 4. Adjuvant hormone therapy with letrozole for 3 years, which discontinued early as the patient developed tardive dyskinesia, which she thought to be related to letrozole and had to stop it. 5. Arimidex for locally recurrent breast cancer in the left axilla since January 2018. She is currently on chemotherapy with Doxil, next PET scan in November. The rest of her past medical, surgical, social history updated below. Daughter Latanya would be medical decision maker if needed. Patient requests Full Code status. Review of Systems Status of ROS: Reports: 10 or more systems reviewed and unremarkable except as noted in History and below Narrative: No fevers, no CP or dyspnea, no GI concerns. 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 Rare ETOH use. 3 living children, daughter Latanya ([phone]) would be medical decision maker if needed. One son at age 39, had CP. 2019. Worked at [employer]. Highest level of school completed/degree received: 10th grade Smoking Status: Never smoker Do you use any of these nicotine containing products: None Second hand tobacco smoke exposure: No How often do you have a drink containing alcohol: monthly or less How often do you have six or more drinks on one occasion: Never AUDIT-C Alcohol total score: 1 Non-prescribed substance use: denies use Caffeine: No Are you using contraception or practicing any form of control: No service: No Meds Home Medications and Allergies Home Medications Medication Instructions Recorded Confirmed Type aspirin 81 mg tablet,delayed 81 mg PO DAILY 07/02/22 10/28/22 History release (Adult Low Dose Aspirin) bismuth subsalicylate 262 mg 1 tab PO Q30-60M PRN 07/02/22 10/28/22 History tablet (Pepto-Bismol) calcium carb-ergocalciferol (vit 1 tab PO BID 07/02/22 10/28/22 History D2) 600 mg calcium-200 unit tablet ferrous gluconate 324 mg (38 mg 324 mg PO DAILY 08/27/22 10/28/22 History iron) tablet metoprolol tartrate 25 mg tablet 12.5 mg PO BID 08/27/22 10/28/22 History anastrozole 1 mg tablet 1 mg PO DAILY 10/28/22 10/28/22 History apixaban 5 mg tablet (Eliquis) 5 mg PO BID 10/28/22 10/28/22 History doxycycline monohydrate 100 mg 100 mg PO BID 10/28/22 10/28/22 History capsule hydrochlorothiazide 25 mg tablet 25 mg PO DAILY 10/28/22 10/28/22 History Allergies Allergy/AdvReac Type Severity Reaction Status Date / Time No Known Drug Allergies Allergy Verified 10/28/22 11:00 Exam Narrative: Exam Narrative: GEN: Alert and oriented, sitting comfortably in bed nontoxic in appearance HEENT: Normal external ears, EOMIs bilaterally, no scleral icterus CV: Rate controlled atrial fibrillation with rate in the 80s during my exam, soft systolic murmur without concerning features noted R: LCTA bilaterally without concerning wheezing, rales, or rhonchi, air movement adequate Ext: No palpable pulses bilateral dorsalis pedis sites, amputation of left 2nd toe Skin: Erythema, tenderness, and warmth of right lower extremity, centromedially with maceration/skin breakdown + drainage. 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 Neuro: No focal deficits Psych: Appropriate Const: Vital Signs, click to edit/add: Vital Signs - 24 hr 10/28/22 10:55 10/28/22 11:11 10/28/22 11:12 Temperature 97.6 F Pulse Rate 154 H Pulse Rate [Left P ulse Oximeter] Pulse Rate [Pulse Oximeter] 88 Respiratory Rate 16 Blood Pressure 124/81 Blood Pressure [Ri ght Upper Arm] 101/68 Pulse Oximetry 98 100 100 Oxygen Delivery [facility] Room Air 10/28/22 11:15 10/28/22 11:30 10/28/22 11:32 Temperature Pulse Rate Pulse Rate [Left P ulse Oximeter] Pulse Rate [Pulse Oximeter] Respiratory Rate Blood Pressure 126/97 H Blood Pressure [Ri ght Upper Arm] Pulse Oximetry 100 100 100 Oxygen Delivery [facility] 10/28/22 11:45 10/28/22 12:00 10/28/22 12:17 Temperature Pulse Rate 93 Pulse Rate [Left P ulse Oximeter] Pulse Rate [Pulse Oximeter] Respiratory Rate Blood Pressure Blood Pressure [Ri ght Upper Arm] Pulse Oximetry 99 98 86 L Oxygen Delivery [facility] 10/28/22 12:20 10/28/22 12:24 10/28/22 12:30 Temperature Pulse Rate 32 L Pulse Rate [Left P ulse Oximeter] Pulse Rate [Pulse Oximeter] Respiratory Rate Blood Pressure 104/78 105/81 Blood Pressure [Ri ght Upper Arm] Pulse Oximetry 100 100 91 Oxygen Delivery Me thod 10/28/22 12:32 10/28/22 12:33 10/28/22 12:40 Temperature Pulse Rate 83 87 Pulse Rate [Left P ulse Oximeter] Pulse Rate [Pulse Oximeter] Respiratory Rate Blood Pressure 120/72 Blood Pressure [Ri ght Upper Arm] Pulse Oximetry 99 100 100 Oxygen Delivery Me thod 10/28/22 12:42 10/28/22 12:51 10/28/22 12:52 Temperature Pulse Rate 51 L Pulse Rate [Left P ulse Oximeter] Pulse Rate [Pulse Oximeter] Respiratory Rate Blood Pressure 99/73 99/77 Blood Pressure [Ri ght Upper Arm] Pulse Oximetry 99 100 98 Oxygen Delivery Me thod 10/28/22 13:00 10/28/22 13:03 10/28/22 13:10 Temperature Pulse Rate 119 H 58 L Pulse Rate [Left P ulse Oximeter] Pulse Rate [Pulse Oximeter] Respiratory Rate Blood Pressure 126/100 H Blood Pressure [Ri ght Upper Arm] Pulse Oximetry 99 98 Oxygen Delivery Me thod 10/28/22 13:12 10/28/22 13:22 10/28/22 13:25 Temperature Pulse Rate 150 H Pulse Rate [Left P ulse Oximeter] Pulse Rate [Pulse Oximeter] Respiratory Rate Blood Pressure 114/80 103/92 H Blood Pressure [Ri ght Upper Arm] Pulse Oximetry 99 95 Oxygen Delivery Me thod 10/28/22 13:30 10/28/22 13:32 10/28/22 13:40 Temperature Pulse Rate 66 146 H Pulse Rate [Left P ulse Oximeter] Pulse Rate [Pulse Oximeter] Respiratory Rate Blood Pressure 118/91 H Blood Pressure [Ri ght Upper Arm] Pulse Oximetry 95 100 98 Oxygen Delivery Me thod 10/28/22 13:42 10/28/22 13:50 10/28/22 13:51 Temperature Pulse Rate 90 Pulse Rate [Left P ulse Oximeter] Pulse Rate [Pulse Oximeter] Respiratory Rate Blood Pressure 109/80 92/72 Blood Pressure [Ri ght Upper Arm] Pulse Oximetry 100 100 100 Oxygen Delivery Me thod 10/28/22 13:57 10/28/22 14:00 10/28/22 14:01 Temperature Pulse Rate Pulse Rate [Left P ulse Oximeter] Pulse Rate [Pulse Oximeter] Respiratory Rate Blood Pressure 89/65 L 109/72 Blood Pressure [Ri ght Upper Arm] Pulse Oximetry 100 100 99 Oxygen Delivery Me thod 10/28/22 14:07 10/28/22 14:10 10/28/22 14:12 Temperature Pulse Rate Pulse Rate [Left P ulse Oximeter] Pulse Rate [Pulse Oximeter] Respiratory Rate Blood Pressure 97/55 L 77/52 L Blood Pressure [Ri ght Upper Arm] Pulse Oximetry 100 100 99 Oxygen Delivery Me thod 10/28/22 14:16 10/28/22 14:20 10/28/22 14:22 Temperature Pulse Rate 137 H 107 H Pulse Rate [Left P ulse Oximeter] Pulse Rate [Pulse Oximeter] Respiratory Rate Blood Pressure 96/50 L 103/62 Blood Pressure [Ri ght Upper Arm] Pulse Oximetry 98 100 99 Oxygen Delivery Me thod 10/28/22 14:27 10/28/22 14:30 10/28/22 14:31 Temperature Pulse Rate 146 H Pulse Rate [Left P ulse Oximeter] Pulse Rate [Pulse Oximeter] Respiratory Rate Blood Pressure 84/46 L 80/52 L Blood Pressure [Ri ght Upper Arm] Pulse Oximetry 99 100 95 Oxygen Delivery Me thod 10/28/22 14:36 10/28/22 14:40 10/28/22 14:42 Temperature Pulse Rate 78 Pulse Rate [Left P ulse Oximeter] Pulse Rate [Pulse Oximeter] Respiratory Rate Blood Pressure 94/64 77/51 L Blood Pressure [Ri ght Upper Arm] Pulse Oximetry 99 100 98 Oxygen Delivery Me thod 10/28/22 14:43 10/28/22 14:47 10/28/22 14:49 Temperature 96.5 F L Pulse Rate 134 H Pulse Rate [Left P ulse Oximeter] Pulse Rate [Pulse Oximeter] Respiratory Rate 16 Blood Pressure 89/48 L 74/54 L 89/63 L Blood Pressure [Ri ght Upper Arm] Pulse Oximetry 99 98 100 Oxygen Delivery Me thod 10/28/22 14:50 10/28/22 14:52 10/28/22 14:53 Temperature Pulse Rate 95 Pulse Rate [Left P ulse Oximeter] Pulse Rate [Pulse Oximeter] Respiratory Rate Blood Pressure 90/56 L Blood Pressure [Ri ght Upper Arm] Pulse Oximetry 100 100 100 Oxygen Delivery [facility] 10/28/22 14:57 10/28/22 15:01 10/28/22 15:02 Temperature 96.5 F L Pulse Rate Pulse Rate [Left P ulse Oximeter] Pulse Rate [Pulse Oximeter] Respiratory Rate Blood Pressure 80/57 L 101/71 Blood Pressure [Ri ght Upper Arm] Pulse Oximetry 100 100 Oxygen Delivery [facility] 10/28/22 15:19 10/28/22 15:19 10/28/22 15:19 Temperature 97.2 F L Pulse Rate Pulse Rate [Left P ulse Oximeter] 109 H Pulse Rate [Pulse Oximeter] Respiratory Rate 16 16 Blood Pressure Blood Pressure [Ri ght Upper Arm] Pulse Oximetry 98 98 99 Oxygen Delivery [facility] Room Air Room Air 10/28/22 15:28 Temperature Pulse Rate 106 H Pulse Rate [Left P ulse Oximeter] Pulse Rate [Pulse Oximeter] Respiratory Rate Blood Pressure Blood Pressure [Ri ght Upper Arm] Pulse Oximetry Oxygen Delivery [facility] Hospitalist - H&P: Result Labs Labs: Short CBC 10/28/22 Range/Units 11:25 WBC 4.32 L (4.50-11.00) K/uL Hgb 10.7 L (12.0-16.0) gm/dL Hct 32.6 L (33.0-51.0) % Plt Count 324 (140-440) K/uL BMP 10/28/22 11:25 Sodium 138 Potassium 3.6 Chloride 100 Carbon Dioxide 31 BUN 16 Creatinine 0.6 Glucose 95 Calcium 9.2 Liver Function 10/28/22 Range/Units 11:25 Total Bilirubin 0.5 (0.1-1.5) mg/dL Direct Bilirubin 0.2 (0.0-0.5) mg/dL AST 26 (12-35) U/L ALT 20 (4-35) U/L Alkaline Phosphatase 67 (40-150) U/L Albumin 3.9 (3.3-5.0) g/dL Urine 10/28/22 Range/Units 12:00 Urine Color Dark yellow (Yellow) Urine Appearance Clear (Clear) Urine pH 5.5 (5.0-8.5) Ur Specific [place] 1.025 (1.000-1.030) Urine Protein Negative (Negative) Urine Glucose (UA) Negative (Negative) Assessment and Plan Assessment and plan (1) Cellulitis: Problem comment: - RLE - immunosuppressed - Vancomycin initiated 10/28 given outpatient antibiotic failure of Augmentin and Doxycycline + comorbidities - wound care consult Status: Acute (2) 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 Has been treated with lumpectomy, radiation x2, currently on chemo Status: Acute (3) Atrial fibrillation with RVR: Problem comment: - rate controlled after Metoprolol and Diltiazem in ED - continue home dose of Metoprolol, prn Diltiazem - BP on the lower side after Diltiazem, will hold home HCTZ on admission Status: Acute Plan - per above - Eliquis for prophylaxis
[2022-10-28 16:42] LABS: Troponin I* < 0.01 ng/mL (0.01-0.04)
--- NOTE | 2022-10-28 19:16 | PC.NURSE ---
shift note [id number]. Pt. up to floor from ED at 1510. pt. is alert and oriented x4. pleasant and cooperative. Pt. denies N/V/SOB and pain. Pt. was tachycardic upon coming up to floor and tele shows A-Fib. Pt. was administered Diltiazem in ED before coming up to floor and HR as of 1630 has been in the 60's-70's. Pt. is Afebrile, 98% O2 on RA. 1 assist with walker d/t unsteady gait from lower extremity edema. Right leg is wrapped in kerlix, warm to the touch and edematous. Pt has left arm restriction. Has a port in right chest, fluids running @100 mls/hr.
[2022-10-28] MEDS: APIXABAN 5 MG TABLET PO (21:55)
[2022-10-28] MEDS: METOPROLOL TARTRATE 25 MG TABLET 12.5 MG PO (21:55)
[2022-10-29] VITALS (10 sets, daily range): BP systolic 111–148; BP diastolic 56–70; PULSE 59–72; RESP 16–18; TEMP 36.4–36.9; O2SAT 95–98
[2022-10-29] MEDS: 0.9 % SODIUM CHLORIDE 1000 ml 1,000 ML 100 ML IV (01:53)
--- NOTE | 2022-10-29 06:25 | PC.NURSE ---
VSS on RA. Tono is alert and oriented x4, able to verbalize needs to staff. Patient denies pain on assessment. IV vancomycin infused this shift. Patient was up to bathroom x1 this shift. She is assist of 1 with transfers, continent of bowel and bladder. Patient is stable, call light within reach.
[2022-10-29 07:45] LABS: Basophils Percent Auto 1.1 % (0.0-3.0); Eosinophils Percent Auto 3.3 % (0.0-7.0); Hematocrit 28.1 % (33.0-51.0); Hemoglobin* 9.2 gm/dL (12.0-16.0); Lymphocytes Percent Auto 33.1 % (20-44); Mean Corpuscular HGB Conc 33 gm/dL (32-36); Mean Corpuscular Hemoglobin 32 pg (26-34); Mean Corpuscular Volume 98 fL (80-100); Monocytes Percent Auto 11.7 % (0.0-11.0); Neutrophils Percent Auto 50.8 % (42.0-72.0); Platelet Count* 304 K/uL (140-440); RDW Coefficient of Variation % 14.7 % (11.5-15.5); Red Blood Count 2.88 m/uL (4.00-5.20); White Blood Count* 3.66 K/uL (4.50-11.00)
[2022-10-29 07:51] LABS: Slide Review Reflex No
[2022-10-29 08:07] LABS: Chloride* 106 mmol/L (96-114); Potassium* 3.8 mmol/L (3.6-5.1); Sodium* 138 mmol/L (135-149)
[2022-10-29 08:10] LABS: Blood Urea Nitrogen* 13 mg/dL (7-30); Carbon Dioxide* 29 mmol/L (20-32); Creatinine* 0.6 mg/dL (0.5-1.5); Est. Creatinine Clearance* 39.03; Estimated Glomerular Filt Rate 90 ml/min
[2022-10-29 08:11] LABS: Calcium* 8.3 mg/dL (8.4-10.6); Glucose* 90 mg/dL (60-115)
[2022-10-29] MEDS: APIXABAN 5 MG TABLET PO ×2 (08:37→21:40)
[2022-10-29] MEDS: ACETAMINOPHEN 325 MG TABLET 975 MG PO (08:37)
[2022-10-29] MEDS: FERROUS SULFATE 325 MG TABLET PO (08:38)
[2022-10-29] MEDS: METOPROLOL TARTRATE 25 MG TABLET 12.5 MG PO ×2 (08:38→21:40)
[2022-10-29] MEDS: ASPIRIN 81 MG TABLET EC PO (08:38)
--- NOTE | 2022-10-29 10:25 | NUTR.NU ---
RDN with nutrition screen related to current cancer treatment. Patient admitted for leg cellulitis with skin breakdown, has history of recurrent breast cancer currently under going chemotherapy. RDN visit with patient whom reported a good, normal appetite. She believes her weight has been stable. Weight history: current weight 153 lbs; weight 30 days (10/08/22) ago 152 lbs; Weight over 90 days ago (07/02/22) 152 lbs. Weight has been stable recently. Patient reported meals have been good since admit and declined scheduled snacks/supplements at this time. On meal intake of 100% (10/28 Dinner) recorded at this time. No nutrition interventions. RDN will continue to monitor and follow-up prn.
[2022-10-29] MEDS: SODIUM CHLORIDE 0.9 % (FLUSH) 10 ML SYRINGE IVF ×2 (10:42→14:32)
[2022-10-29] MEDS: HEPARIN 500 UNIT/5 ML SYRINGE IVF (10:42)
--- NOTE | 2022-10-29 12:03 | PC.SOCIAL ---
Social work: Met briefly with pt. Pt states she has been set up for care at the [facility]. Pt states she thinks her daughter was interested in finding out if there could be home health care arranged for home and requested school social worker contact her daughter to clarify her request. sheet metal worker to follow up as needed.
--- NOTE | 2022-10-29 14:04 | PC.NURSE ---
Pt eupneic and in NAD. Brief visit with Mallorie from [facility] who coordinates care for breast cancer patients. catalytic converter operator helper Soraya called to cancel initial wound care visit for 0830 am. Pt received IV Vancomycin via her right sided PORTACATH. Clear tegaderm dressing CDI to right chest. Tele indicates NSR. Swelling and redness above CDI dressing RLE. Elevated pt's bilateral LE in recliner and on pillows when pt returned to bed. Pt is a SBA for transfers. Continue POC, report will be provided to oncoming shift RN.
--- NOTE | 2022-10-29 14:19 | PC.NURSE ---
New order for IV Rocephin initiated just prior to shift change. RN will unwrap dressing to assess cellulitis site at pt's request.
[2022-10-29] MEDS: cefTRIAXone 1 GM in 0.9 % SODIUM CHLORIDE Mini-bag 100 ML IVPB (14:31)
--- NOTE | 2022-10-29 15:39 | PC.SOCIAL ---
Spoke with pt.'s daughter Latanya @ [phone] regarding referral for possible home care. Latanya states pt. has not been to the wound clinic yet but is set for her first appointment on , 11/05 at 8am. The physician told her that pt will need to be in the hospital until or Thursday. It is unclear what the wound care needs will be at this time with how often dressing changes will be. Latanya is concerned that if pt. is discharged on Thursday and is not seen at the wound care clinic until it will be too long of a time without any treatment. tax services manager will follow up with daughter tomorrow on if home care is needed.
--- NOTE | 2022-10-29 16:24 | PM.IMPN1 ---
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 Has been treated with lumpectomy, radiation x2, currently on chemo Status: Acute (3) Atrial fibrillation with RVR: Problem details: - rate controlled after Metoprolol and Diltiazem in ED - continue home dose of Metoprolol, prn Diltiazem - BP on the lower side after Diltiazem, will hold home HCTZ on admission Status: Acute (4) Chronic venous insufficiency of lower extremity: Status: Acute (5) Ulcer of extremity due to chronic venous insufficiency: Problem details: Wound culture obtained 10/28/2022 growing out Gram-negative rods at this time. Status: Acute Assessment and Plan: Only on IV vancomycin. At ceftriaxone 1 g IV Q 24 hours pending wound culture ID and sensitivities. Remove the Telfa dressing. Debrided wound of tissue, the superficial epithelial layer only, with 4 x 4 gauze and saline. Although was painful for the patient she tolerated the procedure. New dressing orders: 1. Remove dressing, 2. Wash area with saline and gauze, 3. Apply a Vashe soaked gauze to area and allowed to sit for 10 minutes, 4. Adaptic then, ABD, then wrap with Kerlix, than hold in place with single-layer Tubigrip. Keep leg elevated when in bed. (6) Peripheral vascular disease: Problem details: Unable to palpate LE pulses bilaterally Status: Acute Plan 1. Reviewed with patient and daughter. Discussed with daughter via telephone. 2. Reschedule her [place] wound clinic appointment for next Thursday morning. 3. Await wound culture results. Upon obtaining those results consider modification of her antibiotic regimen. 4. Hopefully she may be in a position to be discharged home in the next 1-2 days. Time Spent With Patient Total time spent: 50 minutes Subjective Time Seen by Provider: 13:00 Date Seen: 10/29/22 Interval history: Hospital day 2. 81-year-old woman with nonhealing superficial ulcer right allen. Failed outpatient treatment efforts with multiple courses of oral antibiotics empirically. Thus far has not been assessed by a resource recovery specialist. Known underlying peripheral vascular disease. Exam Narrative: Exam Narrative: Appears comfortable and in no acute distress. Friendly, articulate, cooperative. Alert, oriented to self, place, time, situation. Lungs are clear to auscultation. Heart tones with regular rhythm. Abdomen with active bowel sounds. Bilateral lower extremity with changes of chronic venous insufficiency including hyperpigmentation, edema, and even some lipodermatosclerosis of the right lower extremity more so than left lower extremity.. 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 No focal motor neurologic deficits. Const: Vital Signs, click to edit/add: Vital Signs - 24 hr 10/28/22 16:56 10/28/22 16:56 10/28/22 19:00 Temperature 97.2 F L 97.7 F Pulse Rate 106 H Pulse Rate [Left P ulse Oximeter] 109 H 74 Respiratory Rate 16 16 Blood Pressure [Ri ght Arm] 137/63 Pulse Oximetry 98 96 Oxygen Delivery Me thod Room Air Room Air 10/28/22 23:00 10/28/22 23:00 10/28/22 23:00 Temperature 98.2 F Pulse Rate Pulse Rate [Left P ulse Oximeter] 74 68 Respiratory Rate 16 16 16 Blood Pressure [Ri ght Arm] 133/65 Pulse Oximetry 96 96 Oxygen Delivery Me thod Room Air Room Air 10/29/22 03:00 10/29/22 07:00 10/29/22 07:45 Temperature 98 F Pulse Rate 59 L Pulse Rate [Left P ulse Oximeter] 65 Respiratory Rate 16 Blood Pressure [Ri ght Arm] 111/58 L Pulse Oximetry 95 Oxygen Delivery Me thod Room Air Room Air 10/29/22 07:45 10/29/22 11:50 10/29/22 15:19 Temperature 98.5 F 98.2 F 98.2 F Pulse Rate Pulse Rate [Left P ulse Oximeter] 65 62 67 Respiratory Rate 18 18 18 Blood Pressure [Ri ght Arm] 133/61 123/58 L 148/68 H Pulse Oximetry 95 97 98 Oxygen Delivery Me thod Room Air Room Air Room Air Documenting provider has reviewed patient's vital signs: yes Labs Labs: Laboratory Results - last 24 hr 10/28/22 10/29/22 10/29/22 11:25 06:45 06:45 WBC 3.66 L RBC 2.88 L Hgb 9.2 L Hct 28.1 L MCV 98 MCH 32 MCHC 33 RDW Coeff of Jignesh 14.7 Plt Count 304 Neut % (Auto) 50.8 Lymph % (Auto) 33.1 [place] % (Auto) 11.7 H Eos % (Auto) 3.3 Baso % (Auto) 1.1 Neut # (Auto) 1.90 Lymph # (Auto) 1.20 [place] # (Auto) 0.40 Eos # (Auto) 0.10 Baso # (Auto) 0.00 Sodium 138 Potassium 3.8 Chloride 106 Carbon Dioxide 29 BUN 13 Creatinine 0.6 Estimated Creat Clear 39.03 Estimated GFR 90 Glucose 90 Calcium 8.3 L Troponin I < 0.01 L C-Reactive Protein 3.0 H
[2022-10-29] MEDS: 0.9 % SODIUM CHLORIDE 1000 ml 1,000 ML 35 ML IV (17:50)
--- NOTE | 2022-10-29 23:30 | PC.NURSE ---
Addendum entered by Gaby Lew RN 10/29/22 23:45: Addendum: R leg edematous and pink but within outlines. Dressing C/D/I. Needing reminders to use walker. Original Note: : Pt. teary about diagnosis this afternoon. RN utilized active listening techniques and allowed patient to talk. Noted feeling much better after. Denies pain throughout shift. Antibiotics completed per eMAR. Pt. up w/SBA and walker. Dressing changed per orders.
[2022-10-30 01:30] VITALS: BP 139/56; PULSE 62; RESP 18; TEMP 36.4; O2SAT 95
[2022-10-30 04:19] VITALS: BP 155/69; PULSE 62; RESP 18; TEMP 36.5; O2SAT 96
--- NOTE | 2022-10-30 06:38 | PC.NURSE ---
End of shift status [id number] Pt pleasant and cooperative. Denies pain. VSS on room air. Telemetry monitoring, normal sinus rhythm. Dressing intact to right leg. Up with stand by and walker. Accessed port at TKO. Pt observed resting between cares.
[2022-10-30 06:52] LABS: Hematocrit 29.8 % (33.0-51.0); Hemoglobin* 9.5 gm/dL (12.0-16.0); Mean Corpuscular HGB Conc 32 gm/dL (32-36); Mean Corpuscular Hemoglobin 31 pg (26-34); Mean Corpuscular Volume 98 fL (80-100); Platelet Count* 325 K/uL (140-440); Red Blood Count 3.04 m/uL (4.00-5.20); White Blood Count* 3.52 K/uL (4.50-11.00)
[2022-10-30 07:00] VITALS: BP 139/51; PULSE 72; RESP 18; TEMP 36.9; O2SAT 98
[2022-10-30 07:01] LABS: Slide Review Reflex No
[2022-10-30 07:14] LABS: C Reactive Protein* 2.4 mg/dL (0.5-1.0)
[2022-10-30 07:17] VITALS: PULSE 57
[2022-10-30] MEDS: OXYCODONE 5 MG TABLET PO (09:17)
[2022-10-30] MEDS: APIXABAN 5 MG TABLET PO (09:17)
[2022-10-30] MEDS: METOPROLOL TARTRATE 25 MG TABLET 12.5 MG PO (09:17)
[2022-10-30] MEDS: FERROUS SULFATE 325 MG TABLET PO (09:17)
[2022-10-30] MEDS: ASPIRIN 81 MG TABLET EC PO (09:17)
--- NOTE | 2022-10-30 09:45 | PC.SOCIAL ---
Updated pt.'s daughter Latanya that pt, will need daily dressing changes with a wash and it is a simple dressing change that nursing is working with pt. on to do on her own. He is aware pt. cannot get into the wound care clinic until Wed. There will not be a need for home care. Latanya is relieved since she lives in [place].
[2022-10-30] MEDS: SODIUM CHLORIDE 0.9 % (FLUSH) 10 ML SYRINGE IVF (11:13)
[2022-10-30] MEDS: HEPARIN 500 UNIT/5 ML SYRINGE IVF (11:13)
[2022-10-30 12:35] VITALS: BP 101/71; PULSE 57; RESP 18; TEMP 36.9
--- NOTE | 2022-10-30 19:10 | PM.DS1 ---
DS: Providers Provider Time Seen by Provider: 10:00 Date Seen: 10/30/22 Date of admission: 10/28/22 16:56 Primary care physician: Santa Dash MD Admitting Clinician: Errol Boles MD Consults: 10/28/22 16:58 Consult to Occupational Therapy [CONS] Routine Comment: Reason(s) for OT Consult:: Evaluate and Treat ADLs Prior to Discharge Any Restrictions?:: No Restrictions 10/28/22 18:05 Consult to Corporate Responsibility Officer [CONS] Routine Comment: home care visit setup for wound care Reason for Consult:: Social Service Consult Home Health Assessment Discharge Planning Needs 10/28/22 18:39 Consult to Wound Care [CONS] Routine Comment: Consulting Provider: Leyla Calderon 10/29/22 16:53 Consult to Physical Therapy [CONS] Routine Comment: Reason(s) for PT Consult:: Evaluate and Treat Any Restrictions?:: Wt Bearing as Tolerated Attending Physician on discharge: Errol Boles MD Date of Discharge: 10/30/22 DS: Diagnosis Discharge Diagnosis (1) Ulcer of extremity due to chronic venous insufficiency: Status: Acute Problem details: Wound culture obtained 10/28/2022 grew out pansensitive Pseudomonas aeruginosa. (2) Cellulitis: Status: Acute Problem details: - RLE - immunosuppressed - Vancomycin initiated 10/28 given outpatient antibiotic failure of Augmentin and Doxycycline + comorbidities - wound care consult (3) Chronic venous insufficiency of lower extremity: Status: Acute (4) Atrial fibrillation with RVR: Status: Acute Problem details: - rate controlled after Metoprolol and Diltiazem in ED - continue home dose of Metoprolol, prn Diltiazem - BP on the lower side after Diltiazem, will hold home HCTZ on admission (5) Peripheral vascular disease: Status: Acute Problem details: Unable to palpate LE pulses bilaterally (6) 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 Has been treated with lumpectomy, radiation x2, currently on chemo DS: Summary Hospital Course Hospital Course: Chacorta Cyr is a 81 year old female who presented to the emergency room from [facility] locally for persistent right lower extremity cellulitis, failed outpatient antibiotics x2. She was seen by Dr. Neves of Oncology (breast cancer f/u) on 10/08/22, at that time noted to have right lower extremity cellulitis and edema.? She was started on Augmentin and Lasix.? Following this course of antibiotics, minimal improvement was noted, so she was put on doxycycline by a different clinician on 10/21. She was then seen at the [place] [address] ED on 10/24 for continued progression; they performed an ultrasound (negative for DVT), no antibiotic changes made at that time. Over the past few days, she has noted + skin breakdown over the right anterior lower extremity with drainage. Today, she saw her PCP, Dr. Dash, who noted minimal improvement to the cellulitis, in addition to AFib with HR of 120 (known history of a fib, patient typically asymptomatic). PCP performed a wound culture, then requested that patient come to the ER for further workup and management. ER course and findings: ?- AFib with RVR, heart rate in the 140s.? Treated with metoprolol 5 mg p.o. x1, followed by IV diltiazem.? Rate was then stable at <100 ?- wound and MRSA cultures obtained ?- given 1 g ceftriaxone ?- leukopenia, mild elevation of CRP at 3.3 Status at Discharge Functional status at discharge: uses cane/walker Overall status at discharge: patient is progressing back to baseline Time Spent with Patient Time attestation: Total time spent providing and/or coordinating discharge services: Time spent: Greater than 30 minutes Exam Narrative: Exam Narrative: Appears comfortable and in no acute distress.? Friendly, articulate, cooperative.? Alert, oriented to self, place, time, situation.? Lungs are clear to auscultation.? Heart tones with regular rhythm.? Abdomen with active bowel sounds.? Bilateral lower extremity with changes of chronic venous insufficiency including hyperpigmentation, edema, and even some lipodermatosclerosis of the right lower extremity more so than left lower extremity. Erythema of the right anterior allen with a superficial ulceration in the middle appears better on date of discharge than when I 1st saw her on hospital day 2. Less erythema, less warmth, less tenderness. 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 No focal motor neurologic deficits. I did remove dressing that had applied yesterday. Wash the wound with saline soaked gauze. Applied Vashe soaked gauze for 10 minutes. Then applied saline soaked Hydrea for a blue dressing, covered with Telfa, wrapped with Kerlix, applied single layer Tubigrip from below the knee to base of the toes. Calf circumference 38 cm, Tubigrip size G. Const: Vital Signs, click to edit/add: Vital Signs - 24 hr 10/29/22 23:18 10/30/22 04:19 10/30/22 01:30 Temperature 97.7 F 97.6 F Pulse Rate 65 Pulse Rate [Left P ulse Oximeter] 62 62 Respiratory Rate 18 18 Blood Pressure Blood Pressure [Ri ght Arm] 155/69 H 139/56 L Pulse Oximetry 96 95 Oxygen Delivery Me thod Room Air Room Air 10/30/22 07:17 10/30/22 07:00 10/30/22 07:00 Temperature 98.5 F Pulse Rate 57 L Pulse Rate [Left P ulse Oximeter] 72 Respiratory Rate 18 Blood Pressure Blood Pressure [Ri ght Arm] 139/51 L Pulse Oximetry 98 98 Oxygen Delivery Me thod Room Air Room Air 10/30/22 07:00 10/30/22 12:35 Temperature 98.5 F Pulse Rate 57 L Pulse Rate [Left P ulse Oximeter] 72 Respiratory Rate 18 18 Blood Pressure 101/71 Blood Pressure [Ri ght Arm] Pulse Oximetry Oxygen Delivery Me thod Documenting provider has reviewed patient's vital signs: yes DS: Data Data Completed and Pending Labs on day of discharge: Labs from last 24 hours 10/30/22 10/30/22 06:15 06:15 WBC 3.52 L RBC 3.04 L Hgb 9.5 L Hct 29.8 L MCV 98 MCH 31 MCHC 32 Plt Count 325 C-Reactive Protein 2.4 H Preliminary micro results at discharge 10/28/22 12:20 Blood Culture - Preliminary Blood NO GROWTH AFTER 48 HOURS 10/28/22 11:25 Blood Culture - Preliminary Blood NO GROWTH AFTER 48 HOURS Discharge Plan Discharge Disposition: Home, Self-Care Date of Admission: 10/28/22 16:56 Attending Provider on Discharge: Errol Boles Consulting Providers: Leyla Calderon Primary Care Provider: Santa Dash Condition: Improved Anticipated Discharge Date/Time: 10/30/22 13:30 Discharge Medications: New ciprofloxacin HCl 250 mg Tablet 250 mg PO BID 7 Days Qty: 14 0RF Continued prochlorperazine maleate [Compazine] 5 mg tablet 5 mg PO TID PRN (Reason: nausea and vomiting) Qty: 60 2RF calcium carbonate-vitamin D2 600 mg calcium- 200 unit tablet 1 tab PO BID aspirin [Adult Low Dose Aspirin] 81 mg tablet,delayed release (DR/EC) 81 mg PO DAILY Pepto-Bismol 262 mg tablet 1 tab PO Q30-60M PRN Rx Instructions: do not exceed 16 tabs per 24 hrs Eliquis 5 mg tablet 5 mg PO BID hydrochlorothiazide 25 mg tablet 25 mg PO DAILY ferrous gluconate 324 mg (38 mg iron) tablet 324 mg PO DAILY metoprolol tartrate 25 mg tablet 12.5 mg PO BID Label Comments: TAKE ONE-HALF TABLET BY MOUTH TWICE A DAY Discontinued doxycycline monohydrate 100 mg capsule 100 mg PO BID Label Comments: TAKE ONE CAPSULE BY MOUTH TWICE A DAY FOR 10 DAYS Discharge Orders: Discharge Order (Routine); Ordered 10/30/22 Ordered By: Errol Boles Patient Education: Ciprofloxacin (By mouth), Peripheral Vascular Disease (GEN), Venous Insufficiency (GEN) Additional Instructions: 1. Keep appointment at the [facility] as already scheduled on Thursday; 2. Wound dressing change this Thursday, [facility]: a. remove dressing; b. gently wash wound with saline soaked gauze; c. apply VASHE soaked gauze to wound and allow to sit in place for 10 minutes; d. apply moistened Hydrofera Blue dressing to wound, then apply Telfa pad over the Hyydrofera Blue; e. wrap with Kerlex - may use tape, but only apply tapefrom kerlex to kerlex, not to skin; f. apply properly fitted tubigrip to dressed leg from below the knee to base of the toes - keep dressing in place until follow-up with wound clinic; 3. follow-up with primary care physician in 2-3 weeks, sooner if needed. Activity Level: Activity as Tolerated Discharge Diet: Regular Follow Up Appointments: Santa Dash MD [Primary Care Provider] - 11/14/22 12:10 pm Forms[facility]
== END 2022-10-30 13:00 | disposition home or self-care (01) | DRG 593 ==
LOC: ED 11:42 → MEDSURG 15:02
PROVIDERS: Family Medicine; Admitting Provider Internal Medicine; Emergency Provider Emergency Medicine; PCP Family Medicine; Visit Provider Internal Medicine
DX: L97.811 Non-pressure chronic ulcer of other part of right lower leg limited to breakdown of skin (principal); C77.3 Secondary and unspecified malignant neoplasm of axilla and upper limb lymph nodes; L03.115 Cellulitis of right lower limb; B96.5 Pseudomonas (aeruginosa) (mallei) (pseudomallei) as the cause of diseases classified elsewhere; I87.2 Venous insufficiency (chronic) (peripheral); I73.9 Peripheral vascular disease, unspecified; C50.919 Malignant neoplasm of unspecified site of unspecified female breast; I48.91 Unspecified atrial fibrillation; Z79.01 Long term (current) use of anticoagulants; I10 Essential (primary) hypertension; M85.80 Other specified disorders of bone density and structure, unspecified site
CPT/HCPCS: 36415; 80048; 80076; 81001; 82803; 83605; 84484; 85025; 85027; 85610; 86140; 87040; 87070; 87081; 87086; 87186; 87502; 87634; 87635; 93005; 94761; 97116; 97161; 97165; 97535; 99284; 99285; A9270; J0696; J1642; J3370; J7030; J7050; J7120

== ENCOUNTER 2022-11-05 07:59 | Outpatient (CLI) | payer MEDICARE, BC, SELFPAY | END 2022-11-05 08:00 | disposition home or self-care (01) | LOC: WOUND 08:00 | PROVIDERS: PCP Family Medicine; Visit Provider Surgery | DX: I87.331 Chronic venous hypertension (idiopathic) with ulcer and inflammation of right lower extremity (principal); I87.2 Venous insufficiency (chronic) (peripheral); L97.812 Non-pressure chronic ulcer of other part of right lower leg with fat layer exposed | CPT/HCPCS: 99214 ==

== ENCOUNTER 2022-11-12 08:21 | Outpatient (CLI) | payer MEDICARE, BC, SELFPAY | END 2022-11-12 08:22 | disposition home or self-care (01) | LOC: WOUND 08:21 | PROVIDERS: PCP Family Medicine; Visit Provider Surgery | DX: I87.331 Chronic venous hypertension (idiopathic) with ulcer and inflammation of right lower extremity (principal); I87.2 Venous insufficiency (chronic) (peripheral); L97.811 Non-pressure chronic ulcer of other part of right lower leg limited to breakdown of skin | CPT/HCPCS: 97597 ==

== ENCOUNTER 2022-11-19 08:26 | Outpatient (CLI) | payer MEDICARE, BC, SELFPAY | END 2022-11-19 08:27 | disposition home or self-care (01) | LOC: WOUND 08:27 | PROVIDERS: PCP Family Medicine; Visit Provider Surgery | DX: I87.331 Chronic venous hypertension (idiopathic) with ulcer and inflammation of right lower extremity (principal); I87.2 Venous insufficiency (chronic) (peripheral); L97.812 Non-pressure chronic ulcer of other part of right lower leg with fat layer exposed | CPT/HCPCS: 99213 ==

== ENCOUNTER 2022-11-26 08:19 | Outpatient (CLI) | payer MEDICARE, BC, SELFPAY | END 2022-11-26 08:20 | disposition home or self-care (01) | LOC: WOUND 08:20 | PROVIDERS: PCP Family Medicine; Visit Provider Surgery | DX: I87.331 Chronic venous hypertension (idiopathic) with ulcer and inflammation of right lower extremity (principal); I87.2 Venous insufficiency (chronic) (peripheral); L97.812 Non-pressure chronic ulcer of other part of right lower leg with fat layer exposed | CPT/HCPCS: 99212 ==

== ENCOUNTER 2022-12-25 15:30 | Outpatient (RCR) | payer MEDICARE, BC, SELFPAY ==
--- NOTE | 2022-08-13 14:45 | URNOTE ---
Received request for prior auth for Liposomal Doxorubicin ([id number]) and Aloxi ([id number]). Pt has medicare and [place]. Prior authorization is not required as services are based on medical necessity and follow medicare guidelines.
--- NOTE | 2022-08-28 14:44 | ONC.NURNOTE ---
Completed chemotherapy teaching on Doxil and reviewed pt binder with pt and daughter Latanya via phone, per pt's preference. Reviewed symptom management, when to call the clinic, managing at home 1st 48 hours p chemo, reviewed calendar and upcoming appts. Confirmed prochlorperazine called into [facility] pharmacy. Per pt and daughter's preference, moved 10/[address] Neves and labs/C2 Doxil out 1 week to avoid pt being sick on Thanksgiving as she has plans with family. Pt scheduled to see Dr. Neves with labs/C2 Doxil Wed 10/08.
[2022-09-01 10:35] VITALS: BP 138/73; PULSE 66; RESP 16; TEMP 36.3; O2SAT 94
[2022-09-01 11:01] LABS: Basophils Absolute Auto 0.05 K/uL (0.00-0.30); Basophils Percent Auto 0.8 % (0.0-3.0); Eosinophils Absolute Auto 0.21 K/uL (0.00-0.50); Eosinophils Percent Auto 3.4 % (0.0-7.0); Hematocrit 31.1 % (33.0-51.0); Hemoglobin* 9.8 gm/dL (12.0-16.0); Immature Granulocytes Abs Auto 0.02 K/uL (0.00-0.30); Lymphocytes Absolute Auto 1.85 K/uL (0.90-2.90); Mean Corpuscular HGB Conc 32 gm/dL (32-36); Mean Corpuscular Hemoglobin 34 pg (26-34); Mean Corpuscular Volume 107 fL (80-100); Monocytes Percent Auto 8.1 % (0.0-11.0); Neutrophils Absolute Auto 3.53 K/uL (1.7-7.0); Neutrophils Percent Auto 57.4 % (42.0-72.0); Platelet Count* 264 K/uL (140-440); RDW Coefficient of Variation % 13.8 % (11.5-15.5); White Blood Count* 6.16 K/uL (4.50-11.00)
[2022-09-01 11:14] LABS: Slide Review Reflex No
[2022-09-01 11:18] LABS: Albumin* 3.7 g/dL (3.3-5.0); Chloride* 105 mmol/L (96-114); Sodium* 139 mmol/L (135-149)
[2022-09-01 11:19] LABS: Potassium* 3.8 mmol/L (3.6-5.1)
[2022-09-01 11:21] LABS: Alanine Aminotransferase* 23 U/L (4-35); Alkaline Phosphatase* 47 U/L (40-150); Aspartate Amino Transferase* 25 U/L (12-35); Bilirubin Total* 0.2 mg/dL (0.1-1.5); Blood Urea Nitrogen* 15 mg/dL (7-30); Carbon Dioxide* 29 mmol/L (20-32); Creatinine* 0.7 mg/dL (0.5-1.5); Estimated Glomerular Filt Rate 86 ml/min; Glucose* 144 mg/dL (60-115); Total Protein* 6.1 g/dL (6.0-8.3)
[2022-09-01 11:22] LABS: Calcium* 8.8 mg/dL (8.4-10.6)
[2022-09-01] MEDS: dexAMETHasone 10 MG in 0.9 % SODIUM CHLORIDE 100 ml 100 ML 404 MG IVPB ×2 (12:53→14:35)
[2022-09-01] MEDS: ONDANSETRON 2 MG/ML inj 8 MG IVP ×2 (12:55→12:56)
[2022-09-01] MEDS: diphenhydrAMINE 25 MG, FAMOTIDINE 20 MG in 0.9 % SODIUM CHLORIDE 100 ml 100 ML 410 MG IVPB (14:15)
[2022-09-01] MEDS: FAMOTIDINE 10 MG/ML inj 20 MG IVP (14:48)
--- NOTE | 2022-09-01 15:15 | ONC.NURNOTE ---
1337-Started patient's Liposomal Doxorubicin and at 1348 patient complained of feeling hot,dizzy and patient's face red/flushed. She also started coughing. Doxil stopped-1 liter NS hung-B/P-165/80-HR 66-rr20-t 98.7 temporal 1352-B/P-160/75 HR 63 RR 18 feeling better but stating I never felt like that before 1355-Patient feeling back to baseline B/P-158/78-60 1410-B/P 149/67-55 218-98.6-O2 sats 96% 1415 Pepcid 20mg/Benadryl-25mg givenIVPB 1435 Dexamethasone 10mg given IVPB 1512 Doxil restarted at 36ml/hr VS-150/70-54-18-98.9 T-Sats 95% 1523-Patient sleeping from Benadryl-Denies and issues-B/P-151/18-MQ-50-RR-20-O2 Sats-92%
[2022-09-01] MEDS: ACETAMINOPHEN 325 MG TABLET 650 MG PO (16:07)
--- NOTE | 2022-09-01 17:24 | ONC.NURNOTE ---
Liposomal Doxorubicin increased to 144ml/hr at 1650 then 1705 increased to full dose of 238cc/hr and patient tolerated without any problems.
[2022-09-01 17:37] VITALS: BP 150/82; PULSE 60; RESP 18; TEMP 37.3; O2SAT 95
[2022-10-08 09:47] LABS: Basophils Absolute Auto 0.05 K/uL (0.00-0.30); Basophils Percent Auto 0.6 % (0.0-3.0); Eosinophils Absolute Auto 0.25 K/uL (0.00-0.50); Eosinophils Percent Auto 2.8 % (0.0-7.0); Hematocrit 33.7 % (33.0-51.0); Hemoglobin* 11.1 gm/dL (12.0-16.0); Immature Granulocytes Abs Auto 0.03 K/uL (0.00-0.30); Immature Granulocytes Pct Auto 0.3 %; Lymphocytes Absolute Auto 1.96 K/uL (0.90-2.90); Lymphocytes Percent Auto 21.7 % (20-44); Mean Corpuscular HGB Conc 33 gm/dL (32-36); Mean Corpuscular Hemoglobin 32 pg (26-34); Mean Corpuscular Volume 98 fL (80-100); Monocytes Percent Auto 11.4 % (0.0-11.0); Neutrophils Percent Auto 63.2 % (42.0-72.0); Platelet Count* 247 K/uL (140-440); RDW Coefficient of Variation % 13.3 % (11.5-15.5); Red Blood Count 3.43 m/uL (4.00-5.20); White Blood Count* 9.02 K/uL (4.50-11.00)
[2022-10-08 09:51] LABS: Slide Review Reflex No
[2022-10-08] MEDS: SODIUM CHLORIDE 0.9 % (FLUSH) 10 ML SYRINGE IVF (09:58)
[2022-10-08 10:01] LABS: Albumin* 4.1 g/dL (3.3-5.0); Chloride* 100 mmol/L (96-114)
[2022-10-08 10:02] LABS: Potassium* 3.9 mmol/L (3.6-5.1); Sodium* 138 mmol/L (135-149)
[2022-10-08 10:04] LABS: Alanine Aminotransferase* 27 U/L (4-35); Alkaline Phosphatase* 62 U/L (40-150); Aspartate Amino Transferase* 31 U/L (12-35); Bilirubin Total* 0.5 mg/dL (0.1-1.5); Blood Urea Nitrogen* 23 mg/dL (7-30); Carbon Dioxide* 33 mmol/L (20-32); Creatinine* 0.7 mg/dL (0.5-1.5); Estimated Glomerular Filt Rate 86 ml/min; Glucose* 89 mg/dL (60-115); Total Protein* 6.9 g/dL (6.0-8.3)
[2022-10-08 10:05] LABS: Calcium* 9.1 mg/dL (8.4-10.6)
[2022-10-08 10:50] VITALS: BP 144/70
[2022-10-08] MEDS: dexAMETHasone 20 MG in 0.9 % SODIUM CHLORIDE 100 ml 100 ML 404 MG IVPB (11:00)
[2022-10-08] MEDS: ONDANSETRON 2 MG/ML inj 8 MG IVP (11:01)
[2022-10-08] MEDS: diphenhydrAMINE 25 MG, FAMOTIDINE 20 MG in 0.9 % SODIUM CHLORIDE 100 ml 100 ML 402 MG IVPB (11:21)
--- NOTE | 2022-10-08 11:28 | ONC.NURNOTE ---
Pt brought in unused Ibrance asking [facility] to dispose for her.
--- NOTE | 2022-10-09 15:21 | ONC.NURNOTE ---
Patient plans on staying with Dr. mahmood and the [place] team
--- NOTE | 2022-10-21 09:55 | ONC.NURNOTE ---
Call from patient and her daughter Latanya. Elyssa reports that her right ankle looks like raw meat, is draining and hurting. She denies fever and chills. Elyssa reports that the swelling is better since she last saw us on 10/08 but that once she completed the 7 day course of antibiotics the redness got worse. I reviewed concerns with Janet Mancuso and patient/daughter were informed that this needs to be evaluated today. I placed a call to patients PCP Dr. Dash with an update on her condition and requested they call her with an appointment. Daughter Latanya informed that if they are not able to see Elyssa today, we would recommend she be evaluated in Urgent Care. Latanya verbalizes understanding.
--- NOTE | 2022-11-04 15:10 | ONC.NURNOTE ---
Spoke with Latanya, patients daughter for an update on her condition. Amalia was discharged from the hospital 10/30 and has been coming to the hospital every 2-3 days for dressing changes. She continues with oral antibiotics at home. Amalia reports the swelling and pain are improving. Amalia has an appointment at the wound clinic on 11/05 and with her primary care on 11/14. Latanya informed that we will cancel her 11/13 provider and chemotherapy appointment until we have clearance from the wound clinic and her PCP to resume chemotherapy. A tentative appointment is scheduled for 11/17. Latanya will call with an update on 11/14 after the appointment with primary care. We also may need to delay her PET/CT scan.
--- NOTE | 2022-11-21 14:16 | ONC.NURNOTE ---
Per the patients PCP, they recommend to continue holding Doxil until her right leg cellulitis is resolved. Patient is still seeing wound care and currently is wearing a heart monitor for a-fib. Patients family would still like to have the PET/CT on 11/27 (even though she has only had 2 cycles of chemo) to help with treatment decision making. Patient is unclear if she wants to continue taking Doxil. Reviewed with Simran Saldaña NP and patients daughter Latanya informed that we are fine with this decision. Patient will see Simran Saldaña on 12/11 to review results and discuss treatment planning. Latanya verbalizes understanding.
--- NOTE | 2022-11-28 15:33 | ONC.NURNOTE ---
Call from patients daughter. Latanya states that yesterday they were unable to complete Amalia's PET/CT because they could not get IV access. They informed them that they could not use the port. Amalia was starting to feel light headed and weak and requested that they cancel the test. They are still wanting to keep the follow up appointment with Simran De GuzmanMayes on 12/11 to discuss goals of care and to hear about what the other treatment options would be as outlined by Dr. Neves in her last office note. At this time, Amalia is not interested in continuing the Doxil. I told them that if we want to continue treatment of some kind, we would likely need to repeat a scan in the very near future. Latanya verbalizes understanding.
[2022-12-25] MEDS: SODIUM CHLORIDE 0.9 % (FLUSH) 10 ML SYRINGE IVF (15:35)
== END 2022-12-29 23:59 | disposition home or self-care (01) ==
LOC: CCIC 15:30
PROVIDERS: Clinical Nurse Specialist; PCP Family Medicine; Referring Provider Family Medicine; Visit Provider Nurse Practitioner Family
DX: C50.912 Malignant neoplasm of unspecified site of left female breast (principal); Z17.0 Estrogen receptor positive status [ER+]
CPT/HCPCS: 36415; 36591; 80053; 85025; 96376; 96413; 96415; 99211; 99212; 99213; 99214; 99215; A9270; J1100; J1200; J2405; J7050; Q2050; S0028

== ENCOUNTER 2022-12-25 15:39 | Outpatient (CLI) | payer MEDICARE, BC, SELFPAY ==
--- NOTE | 2022-12-25 16:15 | CRLHL7_ITS ---
For Patients: As a result of the 21st Century Cures Act, medical imaging exams and procedure reports are released immediately into your electronic medical record. You may view this report before your referring provider. If you have questions, please contact your health care provider. INDICATION: Breast cancer TECHNIQUE: Following IV injection of FDG with uptake of 55 minutes, noncontrast CT scan followed by a PET scan were acquired along the length of body from the head to the upper thighs. Noncontrast CT was used for anatomic localization and photon attenuation correction of the PET-CT scan. - Blood glucose level: 89. - FDG dose (mCi): 11.04. COMPARISON: 08/07/2022 PET-CT. FINDINGS: Head/Neck: No abnormal tracer uptake. - Chest: Nodular focus of uptake in the left upper lobe with no definite CT correlate could be due to clumped tracer with SUV max of 6.0 measuring 0.6 cm. Additional tracer avid pulmonary nodules in the left lung seen on prior with resolution of abnormal uptake and decreased size measuring up to 0.4 cm previously 0.8 cm. Left axillary lymph node with SUV max of 6.8 previously 17.0 measuring 0.6 cm short axis previously 1.6 cm. Resolution of left hilar nodes. - Background liver parenchyma with SUV mean of 2.6. No abnormal tracer uptake. Resolution of uptake adjacent to the gallbladder fossa. - Musculoskeletal: No tracer avid bone lesion. - CT findings: Chest port tip at the cavoatrial junction. Mild left breast skin thickening is unchanged. Left breast posttreatment and postsurgical changes. Coronary artery calcifications. Pulmonary nodules as above. Mild basilar atelectasis. No pleural effusion or pneumothorax. Atherosclerotic abdominal aorta. Colonic diverticulosis. Uterus absent. Degenerative changes in the spine. IMPRESSION : 1. Decrease size and uptake of left axillary mass/node. 2. Resolution of uptake and decreased size of multiple pulmonary nodules. New focus of uptake in the left upper lobe but no CT correlate. This could be artifactual due to clumped tracer. 3. Resolution of tracer avid left hilar nodes. Dictated by Ricardo Huang MD @ 01/01/2023 3:23:13 PM (Electronically Signed)
== END 2022-12-25 15:40 | disposition home or self-care (01) ==
LOC: RAD 15:39
PROVIDERS: PCP Family Medicine; Visit Provider Internal Medicine Hematology & Oncology
DX: C50.612 Malignant neoplasm of axillary tail of left female breast (principal)
CPT/HCPCS: 78815; 99211; A9552

== ENCOUNTER 2022-12-29 12:25 | Outpatient (CLI) | payer MEDICARE, BC, SELFPAY | END 2022-12-29 12:26 | disposition home or self-care (01) | LOC: US 12:26 | PROVIDERS: PCP Family Medicine; Visit Provider Surgery | DX: I73.9 Peripheral vascular disease, unspecified (principal) | CPT/HCPCS: 93922 ==

== ENCOUNTER 2023-02-27 12:54 | Outpatient (CLI) | payer MEDICARE, BC, SELFPAY | END 2023-02-27 12:55 | disposition home or self-care (01) | LOC: RAD 12:55 | PROVIDERS: PCP Family Medicine; Visit Provider Internal Medicine Hematology & Oncology | DX: I48.91 Unspecified atrial fibrillation (principal); I51.7 Cardiomegaly; I35.1 Nonrheumatic aortic (valve) insufficiency; I34.0 Nonrheumatic mitral (valve) insufficiency | CPT/HCPCS: 93306 ==

== ENCOUNTER 2023-07-23 14:45 | Outpatient (RCR) | payer MEDICARE, BC, SELFPAY ==
--- NOTE | 2023-01-02 15:00 | ONC.NURNOTE ---
Call from patients daughter requesting the results of her moms PET/CT and follow up plan. I informed Latanya that the doctor had not reviewed the results yet but that I could share the radiologist impression. IMPRESSION : 1. Decrease size and uptake of left axillary mass/node. 2. Resolution of uptake and decreased size of multiple pulmonary nodules. New focus of uptake in the left upper lobe but no CT correlate. This could be artifactual due to clumped tracer. 3. Resolution of tracer avid left hilar nodes. I informed Latanya that we had Amalia scheduled to see Dr. Devine on 01/15 to review results and discuss treatment plan. Latanya asked that we change this appointment so that she could attend. Appointment scheduled for 01/30. Latanya verbalizes understanding of plan.
--- NOTE | 2023-01-30 15:59 | ONC.NURNOTE ---
Addendum entered by Mallorie Robertson 02/03/23 09:39: Patients daughter Latanya returned call. Amalia is agreeable to resume Doxil at a reduced dose but wishes to start treatment after Easter. Patient scheduled to see Dr. Neves and resume treatment on 02/19. Original Note: At the request of Simran Saldaña I attempted to call the patient to discuss a recommended change to her treatment plan as outlined in Simran Saldaña's addeded note: ADDENDUMSpoke with patient's primary oncologist today regarding plan. The plan will be to continue with Doxil at reduced doses. We will bring her back again in a couple of weeks for discussion and re-initiation of care. We will hold off on the letrozole for now. Patient and family made aware of plan and are in agreement Patient does not have a voicemail, so I placed a call to Latanya, Amalia's daughter. I explained that Dr. Neves was very pleased with the great response from the Doxil and would recommend we continue with a reduced dose. Latanya will plan to discuss this with Amalia and call us back next week with their thoughts.
[2023-02-19 09:13] LABS: Basophils Absolute Auto 0.03 K/uL (0.00-0.30); Basophils Percent Auto 0.5 % (0.0-3.0); Eosinophils Absolute Auto 0.32 K/uL (0.00-0.50); Eosinophils Percent Auto 5.1 % (0.0-7.0); Hematocrit 35.7 % (33.0-51.0); Hemoglobin* 11.5 gm/dL (12.0-16.0); Immature Granulocytes Abs Auto 0.01 K/uL (0.00-0.30); Immature Granulocytes Pct Auto 0.2 %; Lymphocytes Absolute Auto 1.69 K/uL (0.90-2.90); Lymphocytes Percent Auto 27.1 % (20-44); Mean Corpuscular HGB Conc 32 gm/dL (32-36); Mean Corpuscular Hemoglobin 30 pg (26-34); Mean Corpuscular Volume 92 fL (80-100); Monocytes Percent Auto 10.4 % (0.0-11.0); Neutrophils Absolute Auto 3.53 K/uL (1.7-7.0); Neutrophils Percent Auto 56.7 % (42.0-72.0); Platelet Count* 235 K/uL (140-440); RDW Coefficient of Variation % 14.2 % (11.5-15.5); Red Blood Count 3.88 m/uL (4.00-5.20); White Blood Count* 6.23 K/uL (4.50-11.00)
[2023-02-19 09:19] LABS: Slide Review Reflex No
[2023-02-19 09:26] LABS: Albumin* 3.9 g/dL (3.3-5.0); Chloride* 102 mmol/L (96-114)
[2023-02-19 09:27] LABS: Potassium* 4.2 mmol/L (3.6-5.1); Sodium* 137 mmol/L (135-149)
[2023-02-19 09:29] LABS: Aspartate Amino Transferase* 24 U/L (12-35); Bilirubin Total* 0.4 mg/dL (0.1-1.5); Carbon Dioxide* 30 mmol/L (20-32); Creatinine* 0.7 mg/dL (0.5-1.5); Est. Creatinine Clearance* 36.81; Estimated Glomerular Filt Rate 86 ml/min; Total Protein* 6.8 g/dL (6.0-8.3)
[2023-02-19 09:30] LABS: Alanine Aminotransferase* 20 U/L (4-35); Alkaline Phosphatase* 56 U/L (40-150); Blood Urea Nitrogen* 18 mg/dL (7-30); Glucose* 92 mg/dL (60-115)
[2023-02-19] MEDS: SODIUM CHLORIDE 0.9 % (FLUSH) 10 ML SYRINGE IVF (10:09)
[2023-02-19] MEDS: HEPARIN 500 UNIT/5 ML SYRINGE IVF (10:09)
--- NOTE | 2023-02-19 12:41 | ONC.NURNOTE ---
I accompanied patient to her oncology visit. I reiterated that she should not begin taking Lasix or Augmentin until directed. Once she starts treatment, she will take the Lasix every other day and the Augmentin will be used as needed for cellulitis. Follow up appointments made including ECHO 02/27, restart Doxil 03/04 and follow up and possible Doxil 04/02. I called and updated patients daughter Latanya on the plan.
--- NOTE | 2023-03-03 12:45 | ONC.NURNOTE ---
Reviewed heart echo from 02/27/[address] Neves showing new left atrial enlargement new from previous echo 08/15/2022. Per Dr. Neves, as pt is already on anticoagulation, no change in plan of care indicated, however pt should f/u with cardiology to see if intervention needed.
[2023-03-04 08:59] VITALS: BP 107/72; PULSE 121; RESP 16; TEMP 36.9; O2SAT 96
[2023-03-04 09:23] LABS: Basophils Absolute Auto 0.04 K/uL (0.00-0.30); Basophils Percent Auto 0.6 % (0.0-3.0); Eosinophils Absolute Auto 0.24 K/uL (0.00-0.50); Eosinophils Percent Auto 3.7 % (0.0-7.0); Hematocrit 37.7 % (33.0-51.0); Hemoglobin* 12.3 gm/dL (12.0-16.0); Immature Granulocytes Abs Auto 0.01 K/uL (0.00-0.30); Immature Granulocytes Pct Auto 0.2 %; Lymphocytes Absolute Auto 1.78 K/uL (0.90-2.90); Lymphocytes Percent Auto 27.7 % (20-44); Mean Corpuscular HGB Conc 33 gm/dL (32-36); Mean Corpuscular Hemoglobin 30 pg (26-34); Mean Corpuscular Volume 92 fL (80-100); Monocytes Percent Auto 10.9 % (0.0-11.0); Neutrophils Absolute Auto 3.66 K/uL (1.7-7.0); Neutrophils Percent Auto 56.9 % (42.0-72.0); Platelet Count* 260 K/uL (140-440); Red Blood Count 4.11 m/uL (4.00-5.20); White Blood Count* 6.43 K/uL (4.50-11.00)
[2023-03-04 09:27] LABS: Slide Review Reflex No
[2023-03-04 09:37] LABS: Albumin* 4.1 g/dL (3.3-5.0); Chloride* 102 mmol/L (96-114); Potassium* 3.9 mmol/L (3.6-5.1); Sodium* 139 mmol/L (135-149)
[2023-03-04 09:40] LABS: Alanine Aminotransferase* 25 U/L (4-35); Alkaline Phosphatase* 66 U/L (40-150); Aspartate Amino Transferase* 28 U/L (12-35); Bilirubin Total* 0.6 mg/dL (0.1-1.5); Blood Urea Nitrogen* 16 mg/dL (7-30); Carbon Dioxide* 32 mmol/L (20-32); Creatinine* 0.8 mg/dL (0.5-1.5); Est. Creatinine Clearance* 36.81; Estimated Glomerular Filt Rate 73 ml/min; Glucose* 96 mg/dL (60-115); Total Protein* 7.2 g/dL (6.0-8.3)
[2023-03-04 09:41] LABS: Calcium* 9.4 mg/dL (8.4-10.6)
[2023-03-04] MEDS: ONDANSETRON 2 MG/ML inj 8 MG IVP (10:28)
[2023-03-04] MEDS: dexAMETHasone 20 MG in 0.9 % SODIUM CHLORIDE 100 ml 100 ML 420 MG IVPB (10:28)
[2023-03-04] MEDS: 5 % DEXTROSE 250 ML IV (10:28)
[2023-03-04] MEDS: FAMOTIDINE 20 MG, diphenhydrAMINE 25 MG in 0.9 % SODIUM CHLORIDE 100 ml 100 ML 420 MG IVPB (10:45)
[2023-04-30 08:02] LABS: Basophils Absolute Auto 0.04 K/uL (0.00-0.30); Basophils Percent Auto 0.6 % (0.0-3.0); Eosinophils Absolute Auto 0.33 K/uL (0.00-0.50); Eosinophils Percent Auto 4.7 % (0.0-7.0); Hematocrit 36.9 % (33.0-51.0); Immature Granulocytes Abs Auto 0.01 K/uL (0.00-0.30); Immature Granulocytes Pct Auto 0.1 %; Lymphocytes Absolute Auto 1.89 K/uL (0.90-2.90); Lymphocytes Percent Auto 26.7 % (20-44); Mean Corpuscular HGB Conc 33 gm/dL (32-36); Mean Corpuscular Hemoglobin 30 pg (26-34); Mean Corpuscular Volume 92 fL (80-100); Monocytes Percent Auto 11.4 % (0.0-11.0); Neutrophils Absolute Auto 4.01 K/uL (1.7-7.0); Neutrophils Percent Auto 56.5 % (42.0-72.0); Platelet Count* 241 K/uL (140-440); RDW Coefficient of Variation % 14.3 % (11.5-15.5); Red Blood Count 4.02 m/uL (4.00-5.20); White Blood Count* 7.09 K/uL (4.50-11.00)
[2023-04-30 08:07] LABS: Slide Review Reflex No
[2023-04-30 08:25] LABS: Chloride* 95 mmol/L (96-114); Potassium* 3.7 mmol/L (3.6-5.1); Sodium* 138 mmol/L (135-149)
[2023-04-30 08:27] LABS: Bilirubin Total* 0.6 mg/dL (0.1-1.5); Creatinine* 0.8 mg/dL (0.5-1.5); Est. Creatinine Clearance* 36.81; Estimated Glomerular Filt Rate 73 ml/min
[2023-04-30 08:28] LABS: Alanine Aminotransferase* 23 U/L (4-35); Alkaline Phosphatase* 62 U/L (40-150); Aspartate Amino Transferase* 32 U/L (12-35); Blood Urea Nitrogen* 22 mg/dL (7-30); Calcium* 9.2 mg/dL (8.4-10.6); Carbon Dioxide* 39 mmol/L (20-32); Glucose* 89 mg/dL (60-115)
[2023-05-01 12:48] VITALS: BP 92/61; PULSE 65; RESP 16; TEMP 36.7; O2SAT 96
[2023-05-01] MEDS: ONDANSETRON 2 MG/ML inj 8 MG IVP (13:09)
[2023-05-01] MEDS: SODIUM CHLORIDE 0.9 % (FLUSH) 10 ML SYRINGE IVF (13:15)
[2023-05-01] MEDS: HEPARIN 500 UNIT/5 ML SYRINGE IVF (13:15)
[2023-05-01] MEDS: dexAMETHasone 20 MG in 0.9 % SODIUM CHLORIDE 100 ml 100 ML 408 MG IVPB (13:15)
[2023-05-01] MEDS: FAMOTIDINE 20 MG, diphenhydrAMINE 25 MG in 0.9 % SODIUM CHLORIDE 100 ml 100 ML 307.5 MG IVPB (13:36)
[2023-05-01 15:30] VITALS: BP 136/76; PULSE 73; RESP 12; TEMP 36.1; O2SAT 94
[2023-05-01] MEDS: 5 % DEXTROSE 250 ML IV (15:39)
--- NOTE | 2023-05-01 16:19 | ONC.NURNOTE ---
Addendum entered and electronically signed by Janet Mancuso APRN 05/03/23 22:40: Changed IV diphenhydramine to 25mg orally as premed and Famotidine 20mg changed from IVPB to IVP starting with cycle 5. Original Note: suzanna. Doxil well. Got sleepy on Benadryl. easily awaken alert and oriented. vs 136/70-73-12 . sats 94 ra. Janet Parra APRN aware and changing benadryl 25 iv to po. pt frient with her and can stay with her as needed. w/c to door. there is a w//c at her living location if needed by the door.
[2023-06-22 11:36] VITALS: BP 162/75; PULSE 58; RESP 18; TEMP 36.8; O2SAT 97
[2023-06-22 11:43] VITALS: BP 138/78
[2023-06-22 12:00] LABS: Basophils Absolute Auto 0.05 K/uL (0.00-0.30); Basophils Percent Auto 0.7 % (0.0-3.0); Eosinophils Absolute Auto 0.34 K/uL (0.00-0.50); Eosinophils Percent Auto 4.6 % (0.0-7.0); Hematocrit 36.1 % (33.0-51.0); Hemoglobin* 11.6 gm/dL (12.0-16.0); Immature Granulocytes Abs Auto 0.01 K/uL (0.00-0.30); Immature Granulocytes Pct Auto 0.1 %; Lymphocytes Absolute Auto 1.77 K/uL (0.90-2.90); Lymphocytes Percent Auto 23.9 % (20-44); Mean Corpuscular HGB Conc 32 gm/dL (32-36); Mean Corpuscular Hemoglobin 30 pg (26-34); Mean Corpuscular Volume 94 fL (80-100); Monocytes Percent Auto 11.4 % (0.0-11.0); Neutrophils Absolute Auto 4.39 K/uL (1.7-7.0); Neutrophils Percent Auto 59.3 % (42.0-72.0); Platelet Count* 246 K/uL (140-440); RDW Coefficient of Variation % 14.2 % (11.5-15.5); Red Blood Count 3.85 m/uL (4.00-5.20)
[2023-06-22 12:04] LABS: Slide Review Reflex No
[2023-06-22 12:21] LABS: Chloride* 99 mmol/L (96-114); Potassium* 4.2 mmol/L (3.6-5.1); Sodium* 137 mmol/L (135-149)
[2023-06-22 12:23] LABS: Bilirubin Total* 0.5 mg/dL (0.1-1.5); Creatinine* 0.7 mg/dL (0.5-1.5); Est. Creatinine Clearance* 36.81; Estimated Glomerular Filt Rate 86 ml/min
[2023-06-22 12:24] LABS: Alanine Aminotransferase* 21 U/L (4-35); Alkaline Phosphatase* 61 U/L (40-150); Aspartate Amino Transferase* 29 U/L (12-35); Blood Urea Nitrogen* 20 mg/dL (7-30); Calcium* 9.1 mg/dL (8.4-10.6); Carbon Dioxide* 33 mmol/L (20-32); Glucose* 89 mg/dL (60-115); Total Protein* 6.9 g/dL (6.0-8.3)
[2023-06-22] MEDS: diphenhydrAMINE 25 MG CAPSULE PO (13:31)
[2023-06-22] MEDS: dexAMETHasone 20 MG in 0.9 % SODIUM CHLORIDE 100 ml 100 ML 408 MG IVPB (13:40)
[2023-06-22] MEDS: ONDANSETRON 2 MG/ML inj 8 MG IVP (13:40)
[2023-06-22] MEDS: FAMOTIDINE 10 MG/ML inj 20 MG IVP (13:41)
== END 2023-07-29 23:59 | disposition home or self-care (01) ==
LOC: CCIC 14:45
PROVIDERS: Internal Medicine Hematology & Oncology; PCP Family Medicine; Referring Provider Family Medicine; Visit Provider Clinical Nurse Specialist
DX: C50.912 Malignant neoplasm of unspecified site of left female breast (principal)
CPT/HCPCS: 36415; 36591; 80053; 85025; 96376; 96413; 99212; 99215; A9270; J1100; J1200; J1642; J2405; J7050; Q2050; S0028

== ENCOUNTER 2023-07-23 14:50 | Outpatient (CLI) | payer MEDICARE, BC, SELFPAY ==
--- NOTE | 2023-07-23 15:30 | CRLHL7_ITS ---
For Patients: As a result of the 21st Century Cures Act, medical imaging exams and procedure reports are released immediately into your electronic medical record. You may view this report before your referring provider. If you have questions, please contact your health care provider. EXAM: PET-CT SKULL BASE TO THIGH CLINICAL INFORMATION: 82-yo female with breast cancer. Prior chemotherapy. Patient is referred for further characterization. TECHNIQUE: Radiopharmaceutical: 12.9 mCi of 18F-FDG Intravenous injection site: Port Uptake time: 57 minutes Blood glucose level at the time of injection: 89 mg/dL Field of view: Skull base to mid-thighs CT protocol: The low-dose, free-breathing, noncontrast CT performed as part of this study is designed for the purposes of attenuation correction and lesion localization, and it is neither sufficient, nor it should be substituted for diagnostic purposes. COMPARISON: PET-CT 12/25/2022 and 08/07/2022 FINDINGS: Physiologic background liver standardized uptake value (SUV mean and SUV max) reported for comparison between PET studies: 2.8 and 3.5. Visualized head and neck: Physiologic uptake in the visualized brain and salivary glands. Small right thyroid lobe cysts/nodules without progressive uptake. Head and neck lymph nodes: No abnormal uptake. Lungs: Similar post radiation changes within the anterior aspect of the left upper lobe/lingula. Biapical scarring. No abnormal right lung uptake. Slightly increased size and variable uptake within small left upper lobe nodules. For example: -lateral left upper lobe perifissural nodule, 0.7 x 0.3 cm, SUV max 1.1. Previously 0.5 cm, SUV max 0.6. -lateral left upper lobe nodule, 0.6 cm, SUV max 2.0. Previously 0.4 cm, SUV max 0.8. -anterior left upper lobe nodule, 0.4 cm, SUV max 1.0. Previously 0.4 cm, SUV max 1.2. Thoracic lymph nodes: No new or hypermetabolic mediastinal or right axillary lymph nodes. Left axillary lymph node/soft tissue mass with persistent uptake, 0.7 cm short axis, SUV max 7.2 (fused image 90). Previously 0.6 cm short axis, SUV max 6.8. Other chest findings: Right chest port with central catheter tip positioned in the upper right atrium. Diffuse coronary vascular calcifications. -postsurgical and post treatment changes of the left breast with mild residual skin thickening. No abnormal left breast or chest wall uptake. Hepatobiliary: No abnormal uptake. Unchanged hypodense lesion right hepatic lobe without suspicious uptake above background liver. Cholelithiasis. Spleen/pancreas/adrenal glands: No abnormal uptake. Kidneys and bladder: No abnormal uptake or obstruction. Distended bladder with no asymmetric wall thickening. Bowel and peritoneum: Limited gastric distension. No suspicious bowel uptake or abnormality. Unremarkable appendix colonic diverticulosis without inflammatory change. Pelvic organs: Prior hysterectomy. No abnormal uptake. Abdominopelvic lymph nodes: No new hypermetabolic abdominopelvic lymph nodes. Musculoskeletal, soft tissues, skin: No new or suspicious tracer avid osseous lesions. Degenerative type uptake within the shoulders, spine and hips. Other: Scattered aortoiliac atherosclerotic vascular calcifications. IMPRESSION: 1. Postsurgical and posttreatment changes of the left breast without suspicious uptake. Persistent moderate uptake within a left axillary lymph node/soft tissue density with slightly increased uptake in the interim. No new hypermetabolic mediastinal lymphadenopathy. 2. Slightly increased size and uptake of small lateral left upper lobe nodules. No abnormal right lung uptake. 3. No distant sites of tracer avid disease in the neck, solid organs of the upper abdomen or abdominopelvic lymph nodes. 4. No suspicious tracer avid osseous lesions. 5. Other nonacute findings as detailed in the body of the report. Dictated by Syd Bright MD @ 07/28/2023 8:03:45 AM (Electronically Signed)
== END 2023-07-23 14:51 | disposition home or self-care (01) ==
LOC: RAD 14:51
PROVIDERS: PCP Family Medicine; Visit Provider Clinical Nurse Specialist
DX: C50.612 Malignant neoplasm of axillary tail of left female breast (principal); C77.3 Secondary and unspecified malignant neoplasm of axilla and upper limb lymph nodes
CPT/HCPCS: 36591; 78815; 80053; 85025; A9552

== ENCOUNTER 2023-08-06 13:48 | Outpatient (CLI) | payer MEDICARE, BC, SELFPAY | END 2023-08-06 13:49 | disposition home or self-care (01) | LOC: RAD 13:49 | PROVIDERS: PCP Family Medicine; Visit Provider Clinical Nurse Specialist | DX: Z51.11 Encounter for antineoplastic chemotherapy (principal); I51.7 Cardiomegaly; I35.1 Nonrheumatic aortic (valve) insufficiency; I34.0 Nonrheumatic mitral (valve) insufficiency | CPT/HCPCS: 93306 ==

== ENCOUNTER 2023-11-12 12:59 | Outpatient (CLI) | payer MEDICARE, BC, SELFPAY ==
--- NOTE | 2023-11-12 14:00 | PE_ITS ---
[facility] [address] [facility] [address] Phone:?[phone] Fax:?[phone] Referring Physician Information: Joyce Majano PA-C [address] [facility] [address] Phone:?[phone] Fax:?[phone] Patient:?Annastacia Trnka D.O.B:?1940 Sex:?Female Phone:?[phone] [facility] MRN:?[id number] Exam Date:?11/12/2023 EXAM: PET/CT SCAN MID-ORBITS TO PROXIMAL CLINICAL INFORMATION: Breast carcinoma. Prior chemotherapy. TECHNICAL INFORMATION: Spiral acquisition of data was obtained from the mid orbits to the proximal thighs with reconstruction of 3.75 mm thick images at 3.[address] data was used for attenuation correction. PET scanning was performed through the same anatomic range 63 minutes following administration of 12.65 mCi of 18-FDG delivered intravenously. The patient's glucose at the time of the injection was 85 mg/dL. PET, CT and PET/CT fusion images are interpreted using a computer viewing workstation. SUV max liver 3.4; BMI normalization method. INTERPRETATION: Head and Neck: No abnormal radiotracer uptake is identified. No pathologic neck adenopathy. Chest: Stable 7 x 3 mm left upper lobe perifissural nodule, image 75, SUV max 1.1, unchanged. 6 mm lateral left upper lobe nodule image 71, stable in size, SUV max 6.75, previously 2.0. Stable size 4 mm anterior left upper lobe nodule image 68, SUV max 1.46, previously 1.0 SUV max. Postradiation changes anterior aspect left upper lobe/lingula. No new lung nodule or infiltrate. No pleural or pericardial effusion. No hilar, mediastinal or axillary adenopathy. Right-sided Port-A-Cath is identified without complication. Left axillary node/soft tissue mass, 7 mm short axis diameter, SUV max 9.54, unchanged in size, previous SUV max 7.2. Abdomen, Pelvis and Proximal Thighs: No focal liver lesion. No bile duct dilatation. The spleen, adrenal glands and kidneys are unremarkable. Atherosclerotic calcification of the abdominal aorta without aneurysm. No gastric or small bowel abnormality. No pelvic mass, hernia, adenopathy or fluid collection. No skeletal lesion. CONCLUSION: 1. Stable size (7 mm short axis diameter) left axillary soft tissue mass/adenopathy, SUV max 9.54, previously 7.2 SUV max. 2. Stable size left upper lobe pulmonary nodules with increased FDG avidity of the 6 mm nodule lateral left upper lobe image 71, SUV max 6.75, previous SUV max 2.0 Electronically signed on 11/13/2023 4:56:00 PM by Sammy Gamboa M.D.
== END 2023-11-12 13:00 | disposition home or self-care (01) ==
LOC: RAD 13:01
PROVIDERS: PCP Family Medicine; Visit Provider Physician Assistant
DX: M85.80 Other specified disorders of bone density and structure, unspecified site (principal); C50.919 Malignant neoplasm of unspecified site of unspecified female breast; C77.3 Secondary and unspecified malignant neoplasm of axilla and upper limb lymph nodes
CPT/HCPCS: 78815; A9552

== ENCOUNTER 2023-11-13 09:49 | Outpatient (CLI) | payer MEDICARE, BC, SELFPAY | END 2023-11-13 09:50 | disposition home or self-care (01) | LOC: RAD 09:49 | PROVIDERS: PCP Family Medicine; Visit Provider Physician Assistant | DX: Z51.81 Encounter for therapeutic drug level monitoring (principal); C50.912 Malignant neoplasm of unspecified site of left female breast; Z79.632 Long term (current) use of antitumor antibiotic; Z79.899 Other long term (current) drug therapy | CPT/HCPCS: 93306 ==

== ENCOUNTER 2023-11-25 15:09 | Outpatient (CLI) | payer MEDICARE, BC, SELFPAY ==
--- NOTE | 2023-11-25 15:00 | XR_ITS ---
Patient: ANN-MARIE CARDONA Facility:?[facility] Patient ID:?[id number] Site Patient ID:?[id number]. Site :?[id number] Study:?DEXA-Bone Density DEXA - Spine/Hips-11/25/2023 4:04:40 PM Ordering Physician:?LELO JOHNS Final Report: DXA BONE MINERAL DENSITY STUDY Reason for exam: Osteopenia. Current height (in): 65. Weight (lb): 150. Menopause age: 45. Ethnicity: White. 1. Have you had a previous hip or vertebral fracture? No. 2. Have you had any fractures during your adult life which did not result from significant trauma (e.g., auto accident)? No. 3. Did either of your parents have a hip fracture? No. 4. Do you smoke? No. 5. Have you ever taken Glucocorticoids? No. 6. Do you have rheumatoid arthritis? No. 7. Do you have secondary osteoporosis? No. 8. Do you drink 3 or more alcoholic drinks per day? No. 9. Are you being treated for osteoporosis? No. 10. Have you ever taken any of the following medications: Actonel, Evista, Fosamax, Miacalcin, Reclast, Boniva, Forteo, HRT (i.e., estrogen/hormone therapy), Protelos, Prolia, Vitamin D, Calcium, other ? please specify. ANSWER: Yes, calcium. 11. Do you have any of the following medical conditions: Anorexia or bulimia, asthma or emphysema, end stage renal disease, hyperparathyroidism, any seizure disorders, cancer, inflammatory bowel diseases, hysterectomy, other ? please specify. ANSWER: Yes, cancer and hysterectomy. 12. What was your maximum height (inches)? 66. 13. Do you perform weight bearing exercise regularly? No. 14. Do you regularly consume dairy products? Yes. 15. Do you drink caffeinated beverages? Yes. If female: 16. At what age did your period start? 12. 17. Are you premenopausal? No. 18. How many full-term pregnancies have you had? 4. 19. Have you ever missed your period for more than 6 months in a row (not including or menopause)? No. TECHNIQUE: Bone mineral density study was performed using the [facility]. FINDINGS: The results of the study expressed as bone mineral density (BMD) are as follows: Lumbar spine L1, L2, L4: BMD: 0.975 g/cm2. T-score: -0.5. Z-score: 2.3 Neck Left: BMD: 0.600 g/cm2. T-score: -2.2. Z-score: 0.2 Right: BMD: 0.647 g/cm2. T-score: -1.8. Z-score: 0.7 Total Left: BMD: 0.710 g/cm2. T-score: -1.9. Z-score: 0.4 Right: BMD: 0.803 g/cm2. T-score: -1.1. Z-score: 1.1 IMPRESSION: Osteopenia. *Comparison exams done prior to 04/2020 were performed on different unit, [employer]. COMPARISON: Compared with scan of 09/05/21, the bone mineral density has increased by 3.5 percent at the spine and increased by 1.7 percent at the hip. Compared with scan of 08/29/2020, the bone mineral density has decreased by 1.5 percent at the spine and increased decreased by 0.8 percent at the hip. FRAX 10-year Fracture Risk Major Osteoporotic Fracture: 17% Hip Fracture: 5.5% Reported Risk Factors: [place] () Neck BMD=0.600, BMI= 25.0 Ricardo Schaefer M.D. Diagnostic Radiologist [email or web address] CHRISTELLE/anil D& Transcribed: 11:48 a.brendon ma/Dictated by: Ricardo Schaefer MD @ 11/26/2023 8:54:00 AM Signed by:?Ricardo Schaefer MD @11/26/2023 1:05:37 PM (Electronic Signature)
--- OUTSIDE RECORDS SUMMARY | 2023-11-25 15:13 | XMS_ITS | Encounter Summary ---
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 200 [place] [address] [facility] Referral ID Status Reason Start Date Expiration Date V isits Requested Visits Authorized [id number] Authorized 05/18/2023 05/18/2026 12 12 Encounter Details Date Type Department Care Team (Latest Contact Info) Description 07/24/2023 1:30 PM CDT - 07/24/2023 1:57 PM CDT Hospital Encounter Department of Neurology in [place], [place] [address] [place] [phone] Sammy Cherry M.D. [address] [place] [phone] Eliana Esquivel M.D. [address] [place] [address] Dystonia Oromandibular Discharge Disposition: Home or Self Care Social History Tobacco Use Types Packs/Day Years Used Date Smoking Tobacco: Never Smokeless Tobacco: Never Nutrition Answer Date Recorded Nutrition: EVOO Fat Source Unknown 01/01 Nutrition: Servings of Fruits/Vegetables per Day Not on file 01/01/2021 Dental Answer Date Recorded Dental: Regular Dentist Unknown 01/01/20 21 Sex and Gender Information Value Date Recorded Sex Assigned at Not on file Gender Identity Not on file Sexual Orientation Not on file documented as of this encounter Medications at Time of Discharge Medication Sig Dispensed Refills Start Date End Date anastrozole (for_ARIMIDEX) 1 mg tablet daily. 0 02/12/[address] tablet Take 1 tablet by mouth daily. 0 07/12/2015 calcium carbonate-vitamin D3 500mg (1,250mg) -600 unit tablet 1 tablet daily. 0 07/12/2015 ferrous gluconate 324 mg (37.5 mg iron) tablet Take 324 mg by mouth daily. 0 03/16/2019 hydroCHLOROthiazide (for_HYDRODIURIL) 25 mg tablet Take 1 tablet by mouth daily. 0 07/12/2015 lisinopril-hydroCHLOROthia zide (PRINZIDE,ZESTORETIC) 10-12.5 mg per tablet daily. 3 03/01/2019 documented as of this encounter Procedure Notes * Eliana Esquivel M.D. 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 Authorized by: Sammy Cherry M.D. BOTULINUM TOXIN INJECTION PROCEDURE FOLLOW-UP Diagnosis: Oromandibular Dystonia The patient reported a excellent response to the previous injection on 04/24/2023. We elected to keep the dose the same. Discussed the risks, benefits, alternatives, and the necessity of other members of the healthcare team participating in the procedure. All questions answered and consent given. Procedural pause conducted to verify: correct patient identity, procedure to be performed, and as applicable, correct side and site, correct patient position, and availability of implants, special equipment, or special requirements. The following areas were injected with botulinum toxin using EMG guidance. Right Lateral Pterygoid (25 g) 25 units Right Digastrics (27 g) 7.5 units Left Lateral Pterygoid (25 g) 35 units Left Digastrics (27 g) 7.5 units Botulinum Toxin Used: incobotulinumtoxinA (Xeomin) Summary: 75 units of botulinum toxin were injected without complications. Wasted units: 25 units Total units: 100 units documented in this encounter Miscellaneous Notes * Addendum Note - Eliana Esquivel M.D. - 07/24/2023 1:30 PM CDTEncounter addended by: Eliana Esquivel M.D. on: 07/24/2023 1:59 PM Actions taken: Charge Capture section accepted * Addendum Note - Lizzie Bar - 07/24/2023 1:30 PM CDTEncounter addended by: Lizzie Bar on: 07/24/2023 2:44 PM Actions taken: MAR administration edited, MAR administration accepted documented in this encounter Plan of Treatment Upcoming Encounters Date Type Department Care Team (Late st Contact Info) Description 01/29/2024 9:30 AM CDT Appointment Department of Neurology in [place], [place] 200 [place] [address] Sammy Cherry M.D. [address] [place] [phone] Discharge Disposition: Home or Self Care documented as of this encounter Procedures Procedure Name Priority Date/Time Associated Diagnosis Comments BOTULINUM TOXIN FOR MOVEMENT DISORDER Routine 07/24/2023 1:30 PM CDT Dystonia Oromandibular documented in this encounter Results * BOTULINUM TOXIN FOR MOVEMENT DISORDER (07/24/2023 1:30 PM CDT) Narrative MMODAL - 07/24/2023 1:30 PM CDT Eliana Esquivel M.D. ? 07/24/2023 ??1:57 PM Botulinum toxin for movement disorder Performed by: Eliana Esquivel M.D. Authorized by: Sammy Cherry M.D. ?? Sammy Cherry M.D. NEUROLOGY ORDERABLES MMODAL NA documented in this encounter Visit Diagnoses Diagnosis Dystonia Oromandibular documented in this encounter Administered Medications Inactive Administered Medications - up to 3 most recent administrations Medication Order MAR Action Action Date Dose Rate Site incobotulinumtoxinA injection 100 Units (XEOMIN) 100 Units, intramuscular, Once, On Thu07/24/23 at 1415, For 1 dose, Reconstitute per package insert instructions according to turbine inspector. Given 07/24/2023 1:56 PM CDT 75 Units O ther documented in this encounter
--- OUTSIDE RECORDS SUMMARY | 2023-11-25 15:13 | XMS_ITS | Encounter Summary ---
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 200 [place] [phone] [facility] Referral ID Status Reason Start Date Expiration Date V isits Requested Visits Authorized [id number] Canceled 04/01/2022 04/01/2025 12 12 Encounter Details Date Type Department Care Team (Latest Contact Info) Description 04/24/2023 9:30 AM CDT - 04/24/2023 9:49 AM CDT Hospital Encounter Department of Neurology in [place], [place] [address] [place] [phone] Sammy Cherry M.D. [address] [place] [phone] Dystonia Oromandibular Discharge Disposition: Home or Self [...] as of this encounter Procedure Notes * Sammy Cherry M.D. 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 Authorized by: Sammy Cherry M.D. BOTULINUM TOXIN INJECTION PROCEDURE FOLLOW-UP Diagnosis: Oromandibular Dystonia The patient reported a excellent response to the previous injection on 01/15/2023. We elected to keep the dose the [...] units: 100 units documented in this encounter Plan of Treatment Upcoming Encounters Date Type Department Care Team (Late st Contact Info) Description 01/29/2024 9:30 AM CDT Appointment Department of Neurology in [place], [place] [address] [place] [phone] Sammy Cherry M.D. [address] [place] [phone] Discharge Disposition: Home or Self Care documented as of this encounter Procedures Procedure Name Priority Date/Time Associated Diagnosis Comments BOTULINUM TOXIN FOR MOVEMENT DISORDER Routine 04/24/2023 9:30 AM CDT Dystonia Oromandibular documented in this encounter Results * BOTULINUM TOXIN FOR MOVEMENT DISORDER (04/24/2023 9:30 AM CDT) Narrative MMODAL - 04/24/2023 9:30 AM CDT Sammy Cherry M.D. ? 04/24/2023 ??9:48 AM Botulinum toxin for movement disorder Performed by: Sammy Cehrry M.D. Authorized by: Sammy Cherry M.D. ?? Sammy Cherry M.D. NEUROLOGY ORDERABLES MMODAL NA documented in this encounter Visit Diagnoses Diagnosis Dystonia Oromandibular documented in this encounter Administered Medications Inactive Administered Medications - up to 3 most recent administrations Medication Order MAR Action Action Date Dose Rate Site incobotulinumtoxinA injection 100 Units (XEOMIN) 100 Units, intramuscular, Once, On Thu04/24/23 at 1000, For 1 dose, Reconstitute per package insert instructions according to heating element repairer. Given 04/24/2023 9:48 AM CDT 75 Units O ther documented in this encounter
--- OUTSIDE RECORDS SUMMARY | 2023-11-25 15:13 | XMS_ITS | Encounter Summary ---
Author Name Unknown Organization [facility] Address [address] [place] [phone] Care Team Providers Care Inspector Outside Production Name Role Phone Unavailable Primary Care Provider Unavailabl e Reason for Visit * Reason Onset Date Comments LENI 05/18/2023 Encounter Details Date Type Department Care Team (Late Contact Info) Description 05/18/2023 Clinical Communication Department of Neurology in [place], [place] [address] [place] [phone] Sammy Cherry M.D. [address] [place] [phone] LENI Social History Tobacco Use Types Packs/Day Years [...] on file documented as of this encounter Miscellaneous Notes * Telephone Encounter - Indira Villela - 05/18/2023 10:[address] Cherry, The desk is requiring a new order for Botox to schedule. Could you place a new order for us? Thank you, Audrey/NAC documented in this encounter Plan of Treatment Upcoming Encounters Date Type Department Care Team (Late st Contact Info) Description 01/29/2024 9:30 AM CDT Appointment Department of Neurology in [place], [place] [address] [place] [phone] Sammy Cherry M.D. [address] [place] [phone] Discharge Disposition: Home or Self Care documented as of this encounter Visit Diagnoses Not on filedocumented in this encounter
--- OUTSIDE RECORDS SUMMARY | 2023-11-25 15:13 | XMS_ITS ---
Author Name Unknown Organization [facility] Address [address] [place] [address] Care Team Providers Care Mothers Helper Name Role Phone Unavailable Unavailable Unavailable Surgery Details Not on file Complications Check Surgery Details section. Procedure Estimated Blood Loss Check Surgery Details section. Procedure Findings Check Surgery Details section. Procedure Specimens Taken Check Surgery Details section.
--- OUTSIDE RECORDS SUMMARY | 2023-11-25 15:13 | XMS_ITS | Encounter Summary ---
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 200 [place] [phone] [facility] Referral ID Status Reason Start Date Expiration Date V isits Requested Visits Authorized [id number] Authorized 05/18/2023 05/18/2026 12 12 Encounter Details Date Type Department Care Team (Latest Contact Info) Description 10/22/2023 9:15 AM DESIGN LEADER - 10/22/2023 10:10 AM DESIGN LEADER Hospital Encounter Department of Neurology in [place], [place] [address] [place] [phone] Sammy Cherry M.D. [address] [place] [phone] Evelio Wilson M.B.B.S. [address] [place] [phone] Dystonia Oromandibular Discharge Disposition: Home or Self [...] as of this encounter Procedure Notes * Evelio Wilson M.B.B.S. 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 Authorized by: Sammy Cherry M.D. BOTULINUM TOXIN INJECTION PROCEDURE FOLLOW-UP Diagnosis: Oromandibular Dystonia The patient reported a excellent response to the previous injection on 07/24/2023. We elected to keep the dose the [...] units: 25 units Total units: 100 units GN LEADER documented in this encounter Plan of Treatment Upcoming Encounters Date Type Department Care Team (Late st Contact Info) Description 01/29/2024 9:30 AM CDT Appointment Department of Neurology in [place], [place] [address] [place] [address] Sammy Cherry M.D. [address] [place] [phone] Discharge Disposition: Home or Self Care documented as of this encounter Procedures Procedure Name Priority Date/Time Associated Diagnosis Comments BOTULINUM TOXIN FOR MOVEMENT DISORDER Routine 10/22/2023 9:30 AM DESIGN LEADER Dystonia Oromandibular documented in this encounter Results * BOTULINUM TOXIN FOR MOVEMENT DISORDER (10/22/2023 9:30 AM DESIGN LEADER) Narrative MMODAL - 10/22/2023 9:30 AM DESIGN LEADER Evelio Wilson M.B.B.S. ? 10/22/2023 10:09 AM Botulinum toxin for movement disorder Performed by: Evelio Wilson M.B.B.S. Authorized by: Sammy Cherry M.D. ?? Sammy Cherry M.D. NEUROLOGY ORDERABLES MMODAL NA documented in this encounter Visit Diagnoses Diagnosis Dystonia Oromandibular documented in this encounter Administered Medications Inactive Administered Medications - up to 3 most recent administrations Medication Order MAR Action Action Date Dose Rate Site incobotulinumtoxinA injection 100 Units (XEOMIN) 100 Units, intramuscular, Once, On Estrella 10/22/23 at 1000, For 1 dose, Reconstitute per package insert instructions according to professor of physical education. Given 10/22/2023 10:02 AM DESIGN LEADER 75 Units Other documented in this encounter
--- OUTSIDE RECORDS SUMMARY | 2023-11-25 15:13 | XMS_ITS | Clinical Summary ---
Author Name Unknown Organization [facility] Address [address] [place] [address] Care Team Providers Care Wind Energy Systems Installer Name Role Phone Unavailable Primary Care Provider Unavailabl e Source Comments Patient records contain information from all sites at [facility]. For routine questions regarding patient records, call [phone] during business hours, M-F 8:00 AM - 5:00 PM Central Time. Record requests for emergency care only can be directed to [phone] at any time.[facility] Allergies No known active allergies Medications Medication Sig Dispensed Refills Start Date End Date Status aspirin [address] tablet Take 1 tablet by mouth daily. 0 07/12/2015 Active calcium carbonate-vitamin D3 500mg (1,250mg) -600 unit tablet 1 tablet daily. 0 07/12/2015 Active hydroCHLOROthiazide (for_HYDRODIURIL) 25 mg tablet Take 1 tablet by mouth daily. 0 07/12/2015 Active anastrozole (for_ARIMIDEX) 1 mg tablet daily. 0 02/12/2018 Active ferrous gluconate 324 mg (37.5 mg iron) tablet Take 324 mg by mouth daily. 0 03/16/2019 Active lisinopril-hydroCHLORO thiazide (PRINZIDE,ZESTORETIC) 10-12.5 mg per tablet daily. 3 03/01/2019 Act driss Active Problems Patient Care Coordination No te Formatting of this note migh t be different from the original. 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 Ali, Farwa, M.B.BKentrellS. Dystonia Oromandibular Discharge Disposition: Home or Self Care from Last 3 Months Immunizations Name Administration Dates Next Due Influenza, Unspecified 08/13/2016 PCV13 07/31/2016 Social History Tobacco Use Types Packs/Day Years [...] on file Sexual Orientation Not on file Last Filed Vital Signs Vital Sign Reading Time Taken Comments Blood Pressure 131/70 08/10/2019 8:48 AM CDT Pulse 68 08/10/2019 8:48 AM CDT Temperature 36.2 ??C (97.2 ??F) 08/10/2019 8:48 AM CD T Respiratory Rate 18 08/10/2019 8:48 AM CDT Oxygen Saturation - - Inhaled Oxygen Concentration - - Weight 70.1 kg (154 lb 6.9 oz) 08/10/2019 8:48 A M CDT Height - - Body Mass Index - - Plan of Treatment Upcoming Encounters Date Type Department Care Team (Late st Contact Info) Description 01/29/2024 9:30 AM CDT Appointment Department of Neurology in [place], [place] [address] [place] [phone] Sammy Cherry M.D. [address] [place] [phone] Discharge Disposition: Home or Self Care Health Maintenance Due Date Last Done Comments DTaP,Tdap,and Td Vaccines (1 - Tdap) 1959 Zoster Vaccines (1 of 2) 1959 Depression Screening (Annual PHQ-2) 11/09/2023 Fall Risk Screen (Annual) 11/09/2023 Creatinine Level (Kidney Function Test) 09/17/2024 09/17/2023, 12/17/2022, 10/24/2022, Additional history exists Potassium Level 09/17/2024 09/17/2023, 02/0 06/2023, 10/24/2022, Additional history exists Sodium Level 09/17/2024 09/17/2023, 02/0 06/2023, 10/24/2022, Additional history exists Pneumococcal vaccine (65+ years) Completed 08/11/2017, 07/31/2016, 09/07/2006 Influenza Vaccine Completed 09/06/2023, , 08/24/2021, Additional history exists COVID-19 Vaccine Completed 09/29/2023, 08/2022, 04/09/2022, Additional history exists HPV Vaccines Aged Out No longer eligi ble based on patient's age to complete this topic Procedures Procedure Name Priority Date/Time Associated Diagnosis Comments OUTSIDE NM PET Routine 11/12/2023 2:30 PM GRADUATION COACH BOTULINUM TOXIN FOR MOVEMENT DISORDER Routine 10/22/2023 9:30 AM GRADUATION COACH Dystonia Oromandibular from Last 3 Months Results * PET skull to mid thigh-Outside NM Pet (11/12/2023 2:30 PM GRADUATION COACH) Narrative IIMS - 11/12/2023 10:11 PM GRADUATION COACH This order has been created and auto-finalized to support the import of outside images. If available, original interpretation can be found on the Media Tab in Chart Review, in Document Viewer, or as an image in QREADS. If a re-interpretation or overread is required please follow defined workflow. ?? Provider Not In System IMG NM PROCEDURES IITX NA * BOTULINUM TOXIN FOR MOVEMENT DISORDER (10/22/2023 9:30 AM GRADUATION COACH) Narrative MMODAL - 10/22/2023 9:30 AM GRADUATION COACH Evelio Wilson M.B.B.S. ? 10/22/2023 10:09 AM Botulinum toxin for movement disorder Performed by: Evelio Wilson M.B.B.S. Authorized by: Sammy Cherry M.D. ?? Sammy Cherry M.D. NEUROLOGY ORDERABLES MMODAL NA from Last 3 Months
--- OUTSIDE RECORDS SUMMARY | 2023-11-25 15:13 | XMS_ITS | Encounter Summary ---
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 200 [place] [address] [facility] Referral ID Status Reason Start Date Expiration Date V isits Requested Visits Authorized [id number] Canceled 04/01/2022 04/01/2025 12 12 Encounter Details Date Type Department Care Team (Latest Contact Info) Description 01/15/2023 2:27 PM ELA TEACHER - 01/15/2023 3:27 PM ELA TEACHER Hospital Encounter Department of Neurology in [place], [place] [address] [place] [phone] Sammy Cherry M.D. [address] [place] [phone] Dystonia Oromandibular Discharge Disposition: Home or Self [...] Procedure Notes * Sammy Cherry M.D. 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 Authorized by: Sammy Cherry M.D. BOTULINUM TOXIN INJECTION PROCEDURE FOLLOW-UP Diagnosis: Oromandibular Dystonia The patient reported a very good response to the previous injection on 10/07/2022. However she is pain on the left side. We elected to increase the dose. Discussed the risks, benefits, alternatives, and the [...] Left Lateral Pterygoid (25 g) 35 units (increase) Left Digastrics (27 g) 7.5 units Botulinum Toxin Used: incobotulinumtoxinA (Xeomin) Summary: 75 units of botulinum toxin were injected without complications. Wasted units: 25 units Total units: 100 units TEACHER documented in this encounter Plan of Treatment Upcoming Encounters Date Type Department Care Team (Late st Contact Info) Description 01/29/2024 9:30 AM CDT Appointment Department of Neurology in [place], [place] [address] [place] [address] Sammy Cherry M.D. [address] [place] [address] Discharge Disposition: Home or Self Care documented as of this encounter Procedures Procedure Name Priority Date/Time Associated Diagnosis Comments BOTULINUM TOXIN FOR MOVEMENT DISORDER Routine 01/15/2023 2:30 PM ELA TEACHER Dystonia Oromandibular documented in this encounter Results * BOTULINUM TOXIN FOR MOVEMENT DISORDER (01/15/2023 2:30 PM ELA TEACHER) Narrative MMODAL - 01/15/2023 2:30 PM ELA TEACHER Sammy Cherry M.D. ? 01/15/2023 ??3:27 PM Botulinum toxin for movement disorder Performed by: Sammy Cherry M.D. Authorized by: Sammy Cherry M.D. Sammy Cherry M.D. NEUROLOGY ORDERABLES MMODAL NA documented in this encounter Visit Diagnoses Diagnosis Dystonia Oromandibular documented in this encounter Administered Medications Inactive Administered Medications - up to 3 most recent administrations Medication Order MAR Action Action Date Dose Rate Site incobotulinumtoxinA injection 100 Units (XEOMIN) 100 Units, intramuscular, Once, On [place]rella 01/15/23 at 1500, For 1 dose, Reconstitute per package insert instructions according to house parent. Given 01/15/2023 3:04 PM ELA TEACHER 75 Units O ther documented in this encounter
--- OUTSIDE RECORDS SUMMARY | 2023-11-25 15:13 | XMS_ITS | Encounter Summary ---
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 [address] [place] [phone] [facility] Referral ID Status Reason Start Date Expiration Date V isits Requested Visits Authorized [id number] Authorized 05/18/2023 05/18/2026 12 12 Encounter Details Date Type Department Care Team (Late st Contact Info) Description 05/18/2023 Orders Only Department of Neurology in [place], [place] [address] [place] [phone] Sammy Cherry M.D. [address] [place] [phone] Dystonia Oromandibular (Primary Dx) Social History Tobacco Use Types Packs/Day Years [...] on file documented as of this encounter Plan of Treatment Upcoming Encounters Date Type Department Care Team (Late st Contact Info) Description 01/29/2024 9:30 AM CDT Appointment Department of Neurology in [place], [place] [address] [place] [address] Sammy Cherry M.D. [address] [place] [address] Discharge Disposition: Home or Self Care Scheduled Orders Name Type Priority Associated Diagnoses Orde r Schedule Botulinum toxin for movement disorder Procedures Routine Dystonia Oromandibular 12 weeks for 12 Occurrences starting 05/18/2023 until 08/18/2024, 2 completed documented as of this encounter Results * BOTULINUM TOXIN FOR MOVEMENT DISORDER (10/22/2023 9:30 AM PROVISIONING ANALYST) Narrative MMODAL - 10/22/2023 9:30 AM PROVISIONING ANALYST Evelio Wilson M.B.B.S. ? 10/22/2023 10:09 AM Botulinum toxin for movement disorder Performed by: Evelio Wilson M.B.B.S. Authorized by: Sammy Cherry M.D. ?? Sammy Cherry M.D. NEUROLOGY ORDERABLES Performing Organization Address [facility] Co de Phone Number MMODAL NA * BOTULINUM TOXIN FOR MOVEMENT DISORDER (07/24/2023 1:30 PM CDT) Narrative MMODAL - 07/24/2023 1:30 PM CDT Eliana Esquivel M.D. ? 07/24/2023 ??1:57 PM Botulinum toxin for movement disorder Performed by: Eliana Esquivel M.D. Authorized by: Sammy Cherry M.D. ?? Sammy Cherry M.D. NEUROLOGY ORDERABLES Performing Organization Address [facility] Co de Phone Number MMODAL NA documented in this encounter Visit Diagnoses Diagnosis Dystonia Oromandibular- Primary Dystonia Oromandibular Dystonia Oromandibular documented in this encounter
--- OUTSIDE RECORDS SUMMARY | 2023-11-25 15:13 | XMS_ITS | Referral Summary ---
Author Name Unknown Organization [facility] Address [address] [place] [address] Care Team Providers Care Laborer Brooder Farm Name Role Phone Unavailable Primary Care Provider Unavailabl e Source Comments Patient records contain information from all sites at [facility]. For routine questions regarding patient records, call [phone] during business hours, M-F 8:00 AM - 5:00 PM Central Time. Record requests for emergency care only can be directed to [phone] at any time.[facility] Encounters Date Type Department Care Team Description 10/22/2023 9:15 AM WORM GROWER - 10/22/2023 10:10 AM [facility] Hospital Encounter Department of Neurology in [place], [place] [address] [place] [address] Sammy Cherry M.D. Ali, Farwa, M.B.B.S. Dystonia Oromandibular Discharge Disposition: Home or Self Care from Last 3 Months Allergies No known active allergies Medications Medication [...] And Upper Limb 08/12/2018 Dystonia Oromandibular 10/22/2017 Immunizations Name Administration Dates Next Due Influenza, [...] AM CDT Appointment Department of Neurology in [place], [place] [address] [place] [address] Sammy Cherry M.D. [address] [place] [address] Discharge Disposition: Home or Self Care Procedures Procedure Name Priority Date/Time Associated Diagnosis Comments OUTSIDE NM PET Routine 11/12/2023 2:30 PM WORM GROWER BOTULINUM TOXIN FOR MOVEMENT DISORDER Routine 10/22/2023 9:30 AM WORM GROWER Dystonia Oromandibular from Last 3 Months Results * PET skull to mid thigh-Outside NM Pet (11/12/2023 2:30 PM WORM GROWER) Narrative IIMS - 11/12/2023 10:11 PM WORM GROWER This order has been created and auto-finalized to support the import of outside images. If available, original interpretation can be found on the Media Tab in Chart Review, in Document Viewer, or as an image in QREADS. If a re-interpretation or overread is required please follow defined workflow. ?? Provider Not In System IMG NM PROCEDURES IIMS NA * BOTULINUM TOXIN FOR MOVEMENT DISORDER (10/22/2023 9:30 AM WORM GROWER) Narrative MMODAL - 10/22/2023 9:30 AM WORM GROWER Evelio Wilson M.B.B.S. ? 10/22/2023 10:09 AM Botulinum toxin for movement disorder Performed by: Evelio Wilson M.B.B.S. Authorized by: Sammy Cherry M.D. ?? Sammy Cherry M.D. NEUROLOGY ORDERABLES MMODAL NA from Last [address] [place] [address]
== END 2023-11-25 15:10 | disposition home or self-care (01) ==
PROVIDERS: PCP Family Medicine; Visit Provider Physician Assistant
DX: M85.80 Other specified disorders of bone density and structure, unspecified site (principal); M85.89 Other specified disorders of bone density and structure, multiple sites; Z78.0 Asymptomatic menopausal state
CPT/HCPCS: 77080

== ENCOUNTER 2024-01-14 09:15 | Outpatient (RCR) | payer MEDICARE, BC, SELFPAY ==
[2023-08-03 12:46] LABS: Basophils Absolute Auto 0.05 K/uL (0.00-0.30); Basophils Percent Auto 0.6 % (0.0-3.0); Eosinophils Absolute Auto 0.25 K/uL (0.00-0.50); Eosinophils Percent Auto 3.2 % (0.0-7.0); Hemoglobin* 11.1 gm/dL (12.0-16.0); Immature Granulocytes Abs Auto 0.02 K/uL (0.00-0.30); Immature Granulocytes Pct Auto 0.3 %; Lymphocytes Absolute Auto 1.84 K/uL (0.90-2.90); Lymphocytes Percent Auto 23.7 % (20-44); Mean Corpuscular HGB Conc 33 gm/dL (32-36); Mean Corpuscular Hemoglobin 31 pg (26-34); Mean Corpuscular Volume 94 fL (80-100); Monocytes Percent Auto 11.8 % (0.0-11.0); Neutrophils Absolute Auto 4.69 K/uL (1.7-7.0); Neutrophils Percent Auto 60.4 % (42.0-72.0); Platelet Count* 234 K/uL (140-440); Red Blood Count 3.61 m/uL (4.00-5.20); White Blood Count* 7.77 K/uL (4.50-11.00)
[2023-08-03 12:48] LABS: Slide Review Reflex No
[2023-08-03 13:11] LABS: Albumin* 3.8 g/dL (3.3-5.0); Chloride* 102 mmol/L (96-114); Sodium* 139 mmol/L (135-149)
[2023-08-03 13:14] LABS: Alanine Aminotransferase* 24 U/L (4-35); Alkaline Phosphatase* 69 U/L (40-150); Anion Gap 6 mEq/L (7-15); Aspartate Amino Transferase* 32 U/L (12-35); Bilirubin Total* 0.4 mg/dL (0.1-1.5); Blood Urea Nitrogen* 22 mg/dL (7-30); Carbon Dioxide* 31 mmol/L (20-32); Creatinine* 0.7 mg/dL (0.5-1.5); Estimated Glomerular Filt Rate 86 ml/min; Glucose* 101 mg/dL (60-115); Total Protein* 6.9 g/dL (6.0-8.3)
[2023-08-03 13:15] LABS: Calcium* 9.4 mg/dL (8.4-10.6)
[2023-08-03] MEDS: diphenhydrAMINE 25 MG CAPSULE PO (13:53)
[2023-08-03] MEDS: dexAMETHasone 20 MG in 0.9 % SODIUM CHLORIDE 100 ml 100 ML 408 MG IVPB (14:04)
[2023-08-03] MEDS: ONDANSETRON 2 MG/ML inj 8 MG IVP (14:05)
[2023-08-03] MEDS: FAMOTIDINE 10 MG/ML inj 20 MG IVP (14:05)
--- NOTE | 2023-10-02 11:56 | URNOTE ---
Request received for authorization for?Doxorubicin Liposomal (J9000). Prior authorization is not required as services are based on medical necessity and follow Medicare guidelines.
--- NOTE | 2023-10-02 12:01 | URNOTE ---
Request received for authorization for Liposomal Doxorubicin (J9001). Prior authorization is not required as services are based on medical necessity and follow Medicare guidelines.
[2023-10-05 07:58] LABS: Basophils Absolute Auto 0.04 K/uL (0.00-0.30); Basophils Percent Auto 0.7 % (0.0-3.0); Eosinophils Absolute Auto 0.26 K/uL (0.00-0.50); Eosinophils Percent Auto 4.9 % (0.0-7.0); Hemoglobin* 10.9 gm/dL (12.0-16.0); Immature Granulocytes Abs Auto 0.01 K/uL (0.00-0.30); Immature Granulocytes Pct Auto 0.2 %; Lymphocytes Absolute Auto 1.64 K/uL (0.90-2.90); Lymphocytes Percent Auto 30.6 % (20-44); Mean Corpuscular HGB Conc 32 gm/dL (32-36); Mean Corpuscular Hemoglobin 31 pg (26-34); Mean Corpuscular Volume 96 fL (80-100); Monocytes Percent Auto 10.6 % (0.0-11.0); Neutrophils Absolute Auto 2.84 K/uL (1.7-7.0); Platelet Count* 233 K/uL (140-440); RDW Coefficient of Variation % 14.4 % (11.5-15.5); Red Blood Count 3.56 m/uL (4.00-5.20); White Blood Count* 5.36 K/uL (4.50-11.00)
[2023-10-05 08:01] LABS: Slide Review Reflex No
[2023-10-05 08:10] LABS: Chloride* 100 mmol/L (96-114); Sodium* 138 mmol/L (135-149)
[2023-10-05 08:13] LABS: Alanine Aminotransferase* 21 U/L (4-35); Alkaline Phosphatase* 57 U/L (40-150); Anion Gap 5 mEq/L (7-15); Aspartate Amino Transferase* 28 U/L (12-35); Bilirubin Total* 0.3 mg/dL (0.1-1.5); Blood Urea Nitrogen* 18 mg/dL (7-30); Carbon Dioxide* 33 mmol/L (20-32); Creatinine* 0.8 mg/dL (0.5-1.5); Estimated Glomerular Filt Rate 73 ml/min; Glucose* 119 mg/dL (60-115); Total Protein* 6.9 g/dL (6.0-8.3)
[2023-10-05 08:14] LABS: Calcium* 9.2 mg/dL (8.4-10.6)
[2023-10-05] MEDS: ONDANSETRON 2 MG/ML inj 8 MG IVP (09:12)
[2023-10-05] MEDS: diphenhydrAMINE 25 MG CAPSULE PO (09:12)
[2023-10-05] MEDS: FAMOTIDINE 10 MG/ML inj 20 MG IVP (09:13)
[2023-10-05] MEDS: dexAMETHasone 20 MG in 0.9 % SODIUM CHLORIDE 100 ml 100 ML 408 MG IVPB (09:13)
--- NOTE | 2023-10-05 13:20 | ONC.NURNOTE ---
PET scan order faxed to [facility]. Pt scheduled 11/12/23.
[2023-11-18] MEDS: SODIUM CHLORIDE 0.9 % (FLUSH) 10 ML SYRINGE IVF (10:09)
[2023-11-18] MEDS: HEPARIN 500 UNIT/5 ML SYRINGE IVF (10:09)
--- NOTE | 2023-11-18 13:09 | URNOTE ---
Request received for authorization for Fulvestrant ([id number]). Prior authorization is not required as services are based on medical necessity and follow Medicare guidelines.
[2023-12-16 09:07] LABS: Basophils Absolute Auto 0.02 K/uL (0.00-0.30); Basophils Percent Auto 0.3 % (0.0-3.0); Eosinophils Absolute Auto 0.19 K/uL (0.00-0.50); Hematocrit 36.7 % (33.0-51.0); Immature Granulocytes Abs Auto 0.01 K/uL (0.00-0.30); Immature Granulocytes Pct Auto 0.2 %; Lymphocytes Absolute Auto 1.71 K/uL (0.90-2.90); Lymphocytes Percent Auto 27.1 % (20-44); Mean Corpuscular HGB Conc 33 gm/dL (32-36); Mean Corpuscular Hemoglobin 31 pg (26-34); Mean Corpuscular Volume 93 fL (80-100); Monocytes Percent Auto 11.1 % (0.0-11.0); Neutrophils Absolute Auto 3.69 K/uL (1.7-7.0); Neutrophils Percent Auto 58.3 % (42.0-72.0); Platelet Count* 266 K/uL (140-440); RDW Coefficient of Variation % 13.8 % (11.5-15.5); Red Blood Count 3.94 m/uL (4.00-5.20); Slide Review Reflex No; White Blood Count* 6.32 K/uL (4.50-11.00)
[2023-12-16 09:22] LABS: Albumin* 4.3 g/dL (3.3-5.0); Chloride* 101 mmol/L (96-114); Sodium* 139 mmol/L (135-149)
[2023-12-16 09:23] LABS: Potassium* 4.3 mmol/L (3.6-5.1)
[2023-12-16 09:25] LABS: Alkaline Phosphatase* 66 U/L (40-150); Anion Gap 8 mEq/L (7-15); Aspartate Amino Transferase* 26 U/L (12-35); Bilirubin Total* 0.5 mg/dL (0.1-1.5); Blood Urea Nitrogen* 21 mg/dL (7-30); Carbon Dioxide* 30 mmol/L (20-32); Creatinine* 0.8 mg/dL (0.5-1.5); Est. Creatinine Clearance* 34.64; Estimated Glomerular Filt Rate 73 ml/min; Total Protein* 7.3 g/dL (6.0-8.3)
[2023-12-16 09:26] LABS: Alanine Aminotransferase* 18 U/L (4-35); Calcium* 9.4 mg/dL (8.4-10.6); Glucose* 95 mg/dL (60-115)
[2023-12-16] MEDS: SODIUM CHLORIDE 0.9 % (FLUSH) 10 ML SYRINGE IVF (09:58)
[2023-12-16] MEDS: FULVESTRANT 500MG KIT 500 MG IM (09:58)
[2023-12-16] MEDS: HEPARIN 500 UNIT/5 ML SYRINGE IVF (09:59)
[2023-12-30 09:29] VITALS: BP 172/75; PULSE 64; RESP 16; TEMP 36.3; O2SAT 97
[2023-12-30] MEDS: FULVESTRANT 500MG KIT 500 MG IM (09:47)
[2024-01-14] MEDS: HEPARIN 500 UNIT/5 ML SYRINGE IVF (09:27)
[2024-01-14] MEDS: SODIUM CHLORIDE 0.9 % (FLUSH) 10 ML SYRINGE IVF (09:27)
[2024-01-14 09:55] LABS: Alanine Aminotransferase* 18 U/L (4-35); Alkaline Phosphatase* 62 U/L (40-150); Aspartate Amino Transferase* 27 U/L (12-35); Bilirubin Total* 0.4 mg/dL (0.1-1.5)
[2024-01-14] MEDS: FULVESTRANT 500MG KIT 500 MG IM (10:22)
[2024-01-14 12:27] LABS: Bilirubin Direct* 0.3 mg/dL (0.0-0.5)
--- NOTE | 2024-01-14 13:03 | ONC.NURNOTE ---
Orders for Liver panel on 02/24 and 04/21 faxed to [facility] to be drawn with her monthly INR checks.
== END 2024-01-30 23:59 | disposition home or self-care (01) ==
LOC: CCIC 09:15
PROVIDERS: Clinical Nurse Specialist; Physician Assistant; PCP Family Medicine; Referring Provider Family Medicine; Visit Provider Internal Medicine Hematology & Oncology
DX: C50.912 Malignant neoplasm of unspecified site of left female breast (principal); Z17.0 Estrogen receptor positive status [ER+]; C77.3 Secondary and unspecified malignant neoplasm of axilla and upper limb lymph nodes; M85.80 Other specified disorders of bone density and structure, unspecified site; I87.2 Venous insufficiency (chronic) (peripheral); I48.91 Unspecified atrial fibrillation; I73.9 Peripheral vascular disease, unspecified; Z79.01 Long term (current) use of anticoagulants
CPT/HCPCS: 36415; 36591; 80053; 80076; 85025; 96376; 96401; 96413; 99211; 99212; 99213; 99214; 99215; G0463; A9270; J1100; J1642; J2405; J7050; J9395; Q2050; S0028

== ENCOUNTER 2024-04-13 13:46 | Outpatient (CLI) | payer MEDICARE, BC, SELFPAY ==
--- OUTSIDE RECORDS SUMMARY | 2024-04-13 13:49 | XMS_ITS | Referral Summary ---
Author Organization [facility] Address [address] [place] [address] Care Team Providers Care Carpet Technician Name Role Phone Unavailable Primary Care Provider Unavailabl e Source Comments Patient records contain information from all sites at [facility]. For routine questions regarding patient records, call [phone] during business hours, M-F 8:00 AM - 5:00 PM Central Time. Record requests for emergency care only can be directed to [phone] at any time.[facility] Encounters Date Type Department Care Team Description 01/29/2024 3:05 PM CDT - 01/29/2024 3:43 PM CDT Hospital Encounter Department of Neurology in [place], [place] [address] [place] [address] Sammy Cherry M.D. Klassen, Bryan T, M.D. Dystonia Oromandibular Discharge Disposition: Home or Self Care from Last 3 Months Allergies No known active allergies Medications Medication Sig Dispensed Refills Start Date End Date Status aspirin [address] tablet Take 1 tablet by mouth daily. 07/12/2015 Active calcium carbonate-vitamin D3 500mg (1,250mg) -600 unit tablet 1 tablet daily. 07/12/2015 Active hydroCHLOROthiazide (for_HYDRODIURIL) 25 mg tablet Take 1 tablet by mouth daily. 07/12/2015 Active anastrozole (for_ARIMIDEX) 1 mg tablet daily. 02/12/2018 Active ferrous gluconate 324 mg (37.5 mg iron) tablet Take 324 mg by mouth daily. 03/16/2019 Active lisinopril-hydroCHLORO thiazide (PRINZIDE,ZESTORETIC) 10-12.5 mg per tablet daily. 3 03/01/2019 [facility], or Other Facility Administered Medication Ordered Dose Route Frequency Start Date End Date Status incobotulinumtoxinA injection 100 Units (XEOMIN)Indications:Dyst onia Oromandibular 100 Units IM Every 12 weeks 01/29/2024 Ac tive incobotulinumtoxinA injection 100 Units (XEOMIN)Indications:Dyst onia Oromandibular 100 Units IM Every 12 weeks 01/29/2024 Ac tive Active Problems Patient Care Coordination No te [...] Care Team (Late st Contact Info) Description 05/03/2024 1:30 PM CDT Appointment Department of Neurology in [place], [place] 200 [place] [address] Sammy Cherry M.D. 200 [place] [address] Discharge Disposition: Home or Self Care Procedures Procedure Name Priority Date/Time Associated Diagnosis Comments EXTI COMPREHENSIVE METABOLIC PANEL, S/P Routine 03/24/2024 2:18 PM CDT BOTULINUM TOXIN FOR MOVEMENT DISORDER Routine 01/29/2024 3:30 PM CDT Dystonia Oromandibular from Last 3 Months or Most Recently Relevant to Health Maintenance Results * BOTULINUM TOXIN FOR MOVEMENT DISORDER (01/29/2024 3:30 PM CDT) Narrative MMODAL - 01/29/2024 3:30 PM CDT Sam Cuellar M.D. ? 01/29/2024 ??3:25 PM Botulinum toxin for movement disorder Performed by: Sam Cuellar M.D. Authorized by: Sammy Cherry M.D. ?? Sammy Cherry M.D. NEUROLOGY ORDERABLES MMODAL NA from Last 3 Months
--- OUTSIDE RECORDS SUMMARY | 2024-04-13 13:49 | XMS_ITS ---
Author Organization [facility] Address [address] [place] [address] Care Team Providers Care Carbonating Stone Cleaner Name Role Phone Unavailable Unavailable Unavailable Surgery Details Not on file Complications Check Surgery Details section. Procedure Estimated Blood Loss Check Surgery Details section. Procedure Findings Check Surgery Details section. Procedure Specimens Taken Check Surgery Details section.
--- OUTSIDE RECORDS SUMMARY | 2024-04-13 13:49 | XMS_ITS | Clinical Summary ---
Author Organization [facility] Address [address] [place] [address] Care Team Providers Care Adjunct History Instructor Name Role Phone Unavailable Primary Care Provider Unavailabl e Source Comments Patient records contain information from all sites at [facility]. For routine questions regarding patient records, call [phone] during business hours, M-F 8:00 AM - 5:00 PM Central Time. Record requests for emergency care only can be directed to [phone] at any time.[facility] Allergies No known active allergies Medications Medication [...] 10-12.5 mg per tablet daily. 3 03/01/2019 [facility], or Other Facility Administered Medication [...] CDT Hospital Encounter Department of Neurology in [place], [place] [address] [place] [phone] Sammy Cherry M.D. Klassen, Bryan T, M.D. [...] PM CDT Appointment Department of Neurology in [place], [place] [address] [place] [phone] Sammy Cherry M.D. [address] [place] [phone] Discharge Disposition: Home or Self Care Health Maintenance Due Date Last Done Comments DTaP,Tdap,and Td Vaccines (1 - Tdap) 1959 Zoster Vaccines (1 of 2) 1959 Depression Screening (Annual PHQ-2) 11/09/2023 Fall Risk Screen (Annual) 11/09/2023 COVID-19 Vaccine ( season) 2023 09/29/2023, 08/18/2022, 04/09/2022, Additional history exists Creatinine Level (Kidney Function Test) 03/24/2025 03/24/2024, 11/10/2023, 09/17/2023, Additional history exists Potassium Level 03/24/2025 03/24/2024, 12/2023, 09/17/2023, Additional history exists Sodium Level 03/24/2025 03/24/2024, 12/2023, 09/17/2023, Additional history exists Pneumococcal vaccine (65+ years) Completed 08/11/2017, 07/31/2016, 09/07/2006 Influenza Vaccine Completed 09/06/2023, , 08/24/2021, Additional history exists HPV Vaccines Aged Out [...]
--- OUTSIDE RECORDS SUMMARY | 2024-04-13 13:49 | XMS_ITS | Encounter Summary ---
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 200 [place] [address] [facility] Referral ID Status Reason Start Date Expiration Date V isits Requested Visits Authorized [id number] Authorized 05/18/2023 05/18/2026 12 12 Encounter Details Date Type Department Care Team (Latest Contact Info) Description 01/29/2024 3:05 PM CDT - 01/29/2024 3:43 PM CDT Hospital Encounter Department of Neurology in [place], [place] [address] [place] [phone] Sammy Cherry M.D. [address] [place] [phone] Sam Cuellar M.D. [address] [place] [address] Dystonia Oromandibular Discharge Disposition: Home or Self [...] Date anastrozole (for_ARIMIDEX) 1 mg tablet daily. 02/12/[address] tablet Take 1 tablet by mouth daily. 07/12/2015 calcium carbonate-vitamin D3 500mg (1,250mg) -600 unit tablet 1 tablet daily. 07/12/2015 ferrous gluconate 324 mg (37.5 mg iron) tablet Take 324 mg by mouth daily. 03/16/2019 hydroCHLOROthiazide (for_HYDRODIURIL) 25 mg tablet Take 1 tablet by mouth daily. 07/12/2015 lisinopril-hydroCHLOROthia zide (PRINZIDE,ZESTORETIC) 10-12.5 mg per tablet daily. 3 03/01/2019 documented as of this encounter Procedure Notes * Sam Cuellar M.D. 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 Authorized by: Sammy Cherry M.D. BOTULINUM TOXIN INJECTION PROCEDURE FOLLOW-UP Diagnosis: Oromandibular Dystonia The patient reported a excellent response to the previous injection on 10/22/2023. We elected to keep the dose the [...] PM CDT Appointment Department of Neurology in [place], [place] [address] [place] [address] Sammy Cherry M.D. [address] [place] [address] Discharge Disposition: Home or Self Care documented as of this encounter Procedures Procedure Name Priority Date/Time Associated Diagnosis Comments BOTULINUM TOXIN FOR MOVEMENT DISORDER Routine 01/29/2024 3:30 PM CDT Dystonia Oromandibular documented in this [...] Oromandibular documented in this encounter Administered Medications Active Administered Medications - up to 3 most recent administrations Medication Order MAR Action Action Date Dose Rate Site incobotulinumtoxinA injection 100 Units (XEOMIN) 100 Units, intramuscular, Every 12 weeks, First dose on Thu01/29/24 at 1600, Reconstitute per package insert instructions according to automobile service writer. Given 01/29/2024 3:35 PM CDT 75 Units Other documented in this encounter
== END 2024-04-13 13:47 | disposition home or self-care (01) ==
PROVIDERS: PCP Family Medicine; Visit Provider Internal Medicine Hematology & Oncology
DX: Z51.81 Encounter for therapeutic drug level monitoring (principal); I51.7 Cardiomegaly; I34.0 Nonrheumatic mitral (valve) insufficiency; I35.1 Nonrheumatic aortic (valve) insufficiency
CPT/HCPCS: 93306

== ENCOUNTER 2024-04-21 14:49 | Outpatient (REF) | payer MEDICARE, BC, SELFPAY ==
--- OUTSIDE RECORDS SUMMARY | 2024-04-21 15:22 | XMS_ITS | Encounter Summary ---
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 200 [place] [address] [facility] Referral ID Status Reason Start Date Expiration Date V isits Requested Visits Authorized [id number] Authorized 05/18/2023 05/18/2026 12 12 Encounter Details Date Type Department Care Team (Latest Contact Info) Description 01/29/2024 3:05 PM CDT - 01/29/2024 3:43 PM CDT Hospital Encounter Department of Neurology in [place], [place] [address] [place] [phone] Sammy Cherry M.D. [address] [place] [phone] Sam Cuellar M.D. [address] [place] [address] Dystonia Oromandibular Discharge Disposition: Home or Self [...] PM CDT Appointment Department of Neurology in [place], [place] [address] [place] [address] Sammy Cherry M.D. [address] [place] [address] Discharge Disposition: Home or Self Care documented [...] Reconstitute per package insert instructions according to composite technician. Given 01/29/2024 3:35 PM CDT 75 Units Other documented in this encounter
--- OUTSIDE RECORDS SUMMARY | 2024-04-21 15:22 | XMS_ITS | Clinical Summary ---
Author Organization [facility] Address [address] [place] [address] Care Team Providers Care Health Safety Instructor Name Role Phone Unavailable Primary Care Provider Unavailabl e Source Comments Patient records contain information from all sites at [facility]. For routine questions regarding patient records, call [phone] during business hours, M-F 8:00 AM - 5:00 PM Central Time. Record requests for emergency care only can be directed to [phone] at any time.[facility] Allergies No known active allergies Medications [...] 10-12.5 mg per tablet daily. 3 03/01/2019 [facility], or Other Facility Administered Medication [...] CDT Hospital Encounter Department of Neurology in [place], [place] [address] [place] [phone] Sammy Cherry M.D. Klassen, Bryan T, M.D. [...] PM CDT Appointment Department of Neurology in [place], [place] [address] [place] [phone] Sammy Cherry M.D. [address] [place] [phone] Discharge Disposition: Home or Self Care Health [...]
--- OUTSIDE RECORDS SUMMARY | 2024-04-21 15:22 | XMS_ITS ---
Author Organization [facility] Address [address] [place] [address] Care Team Providers Care House Builder Name Role Phone Unavailable Unavailable Unavailable Surgery Details Not on file Complications Check Surgery Details section. Procedure Estimated Blood Loss Check Surgery Details section. Procedure Findings Check Surgery Details section. Procedure Specimens Taken Check Surgery Details section.
--- OUTSIDE RECORDS SUMMARY | 2024-04-21 15:22 | XMS_ITS | Referral Summary ---
Author Organization [facility] Address [address] [place] [address] Care Team Providers Care Babcock Tester Name Role Phone Unavailable Primary Care Provider Unavailabl e Source Comments Patient records contain information from all sites at [facility]. For routine questions regarding patient records, call [phone] during business hours, M-F 8:00 AM - 5:00 PM Central Time. Record requests for emergency care only can be directed to [phone] at any time.[facility] Encounters Date Type Department Care Team Description 01/29/2024 3:05 PM CDT - 01/29/2024 3:43 PM CDT Hospital Encounter Department of Neurology in [place], [place] [address] [place] [address] Sammy Cherry M.D. Klassen, Bryan T, M.D. [...] PM CDT Appointment Department of Neurology in [place], [place] 200 [place] [address] Sammy Cherry M.D. 200 [place] [address] Discharge Disposition: Home or Self Care Procedures [...]
[2024-04-21 17:03] LABS: INR 1.48 (0.91-1.10)
== END 2024-04-21 14:50 | disposition home or self-care (01) ==
LOC: NPINS 14:49
PROVIDERS: PCP Family Medicine; Visit Provider Family Medicine
DX: I48.0 Paroxysmal atrial fibrillation (principal)
CPT/HCPCS: 85610

== ENCOUNTER 2024-07-07 12:35 | Outpatient (CLI) | payer MEDICARE, BC, SELFPAY ==
--- OUTSIDE RECORDS SUMMARY | 2024-07-07 12:38 | XMS_ITS | Referral Summary ---
Author Organization [facility] Address [address] [place] [address] Care Team Providers Care Flap Lining Binder Name Role Phone Unavailable Primary Care Provider Unavailabl e Source Comments Patient records contain information from all sites at [facility]. For routine questions regarding patient records, call [phone] during business hours, M-F 8:00 AM - 5:00 PM Central Time. Record requests for emergency care only can be directed to [phone] at any time.[facility] Encounters Date Type Department Care Team Description 05/03/2024 1:29 PM CDT - 05/03/2024 1:44 PM CDT Hospital Encounter Department of Neurology in [place], [place] [address] [place] [address] Sammy Cherry M.D. Klassen, Bryan T, M.D. [...] 01/29/2024 Ac tive incobotulinumtoxinA injection 100 Units (Xeomin)Indications:Dyst onia Oromandibular 100 Units IM Every 12 weeks 05/03/2024 Ac tive Active Problems Patient Care Coordination [...] Care Team (Late st Contact Info) Description 08/04/2024 1:30 PM CDT Appointment Department of Neurology in [place], [place] [address] [place] [address] Sammy Cherry M.D. [address] [place] [address] Discharge Disposition: Home or Self Care Procedures Procedure Name Priority Date/Time Associated Diagnosis Comments BOTULINUM TOXIN FOR MOVEMENT DISORDER Routine 05/03/2024 1:30 PM CDT Dystonia Oromandibular from Last 3 Months Results * BOTULINUM TOXIN FOR MOVEMENT DISORDER (05/03/2024 1:30 PM CDT) Narrative MMODAL - 05/03/2024 1:30 PM CDT Sam Cuellar M.D. ? 05/03/2024 ??1:44 PM Botulinum toxin for movement disorder Performed by: Sam Cuellar M.D. Authorized by: Sammy Cherry M.D. ?? Sammy Cherry M.D. NEUROLOGY ORDERABLES MMODAL NA from Last [address] [place] [address]
--- OUTSIDE RECORDS SUMMARY | 2024-07-07 12:38 | XMS_ITS | Clinical Summary ---
Author Organization [facility] Address [address] [place] [address] Care Team Providers Care International Student Counselor Name Role Phone Unavailable Primary Care Provider Unavailabl e Source Comments Patient records contain information from all sites at [facility]. For routine questions regarding patient records, call [phone] during business hours, M-F 8:00 AM - 5:00 PM Central Time. Record requests for emergency care only can be directed to [phone] at any time.[facility] Allergies No known active allergies Medications [...] 10-12.5 mg per tablet daily. 3 03/01/2019 [facility], or Other Facility Administered Medication [...] CDT Hospital Encounter Department of Neurology in [place], [place] [address] [place] [address] Samym Cherry M.D. Klassen, Bryan T, M.D. Dystonia [...] PM CDT Appointment Department of Neurology in [place], [place] [address] [place] [address] Sammy Cherry M.D. [address] [place] [address] Discharge Disposition: Home or Self Care Health Maintenance Due Date Last Done Comments DTaP,Tdap,and Td Vaccines (1 - Tdap) 1959 Zoster Vaccines (1 of 2) 1959 Depression Screening (Annual PHQ-2) 11/09/2023 Fall Risk Screen (Annual) 11/09/2023 COVID-19 Vaccine ( season) 2023 09/29/2023, 08/18/2022, 04/09/2022, Additional history exists Influenza Vaccine (#1) 2024 , 08/14/2022, 08/24/2021, Additional history exists Creatinine Level (Kidney Function Test) 03/24/2025 03/24/2024, 11/10/2023, 09/17/2023, Additional history exists Potassium Level 03/24/2025 03/24/2024, 0 12/2023, 09/17/2023, Additional history exists Sodium Level 03/24/2025 03/24/2024, 010 12/2023, 09/17/2023, Additional history exists Pneumococcal vaccine (65+ years) Completed 08/11/2017, 07/31/2016, 09/07/2006 HPV Vaccines Aged Out No longer eligi [...] Months [address] [place] [address]
--- OUTSIDE RECORDS SUMMARY | 2024-07-07 12:38 | XMS_ITS | Encounter Summary ---
Author Organization [facility] Address [address] [place] [id number] Care Team Providers Care Medical Assistant Secretary Name Role Phone Unavailable Primary Care Provider Unavailabl e Reason for Referral * Outpatient (Routine) - Authorized Specialty Diagnoses / Procedures Referred By Jacke humphreys Referred To Contact Diagnoses Dystonia Oromandibular Procedures Botulinum toxin for movement disorder Sammy Cherry M.D. [address] [place] [phone] [facility] Referral ID Status Reason Start Date Expiration Date V isits Requested Visits Authorized [id number] Authorized 05/18/2023 05/18/2026 12 12 Reason for Visit * Outpatient (Routine) - Authorized Specialty Diagnoses / Procedures Referred By Jacek humphreys Referred To Contact Diagnoses Dystonia Oromandibular Procedures Botulinum toxin for movement disorder Sammy Cherry M.D. 200 [place] [address] [facility] Referral ID Status Reason Start Date Expiration Date V isits Requested Visits Authorized [id number] Authorized 05/18/2023 05/18/2026 12 12 Encounter Details Date Type Department Care Team (Latest Contact Info) Description 05/03/2024 1:29 PM CDT - 05/03/2024 1:44 PM CDT Hospital Encounter Department of Neurology in [place], [place] [address] [place] [phone] Sammy Cherry M.D. [address] [place] [phone] Sam Cuellar M.D. [address] [place] [address] Dystonia Oromandibular Discharge Disposition: Home or Self [...] Procedure Notes * Sam Cuellar M.D. - 05/03/2024 1:30 PM CDTAssociated Order(s): Botulinum toxin for movement disorder Pre-Procedure Diagnose(s): Dystonia Oromandibular Post-Procedure Diagnose(s): Dystonia Oromandibular Botulinum toxin for movement disorder Performed by: Sam Cuellar M.D. Authorized by: Sammy Cherry M.D. BOTULINUM TOXIN INJECTION PROCEDURE FOLLOW-UP Diagnosis: Oromandibular Dystonia The patient reported a excellent response to the previous injection on 01/29/2024. We elected to keep the dose the [...] PM CDT Appointment Department of Neurology in [place], [place] [address] [place] [address] Sammy Cherry M.D. [address] [place] [address] Discharge Disposition: Home or Self Care documented as of this encounter Procedures Procedure Name Priority Date/Time Associated Diagnosis Comments BOTULINUM TOXIN FOR MOVEMENT DISORDER Routine 05/03/2024 1:30 PM CDT Dystonia Oromandibular documented in [...] Dose Rate Site incobotulinumtoxinA injection 100 Units (Xeomin) 100 Units, intramuscular, Every 12 weeks, First dose on Thu05/03/24 at 1400, Reconstitute per package insert instructions according to process chemist. Given 05/03/2024 1:44 PM CDT 75 Units Other documented in this encounter
--- OUTSIDE RECORDS SUMMARY | 2024-07-07 12:38 | XMS_ITS ---
Author Organization [facility] Address [address] [place] [address] Care Team Providers Care Senior Center Director Name Role Phone Unavailable Unavailable Unavailable Surgery Details Not on file Complications Check Surgery Details section. Procedure Estimated Blood Loss Check Surgery Details section. Procedure Findings Check Surgery Details section. Procedure Specimens Taken Check Surgery Details section.
--- NOTE | 2024-07-07 14:30 | PE_ITS ---
[facility] [address] [facility] [address] Phone:?[phone] Fax:?[phone] Referring Physician Information: Megha Neves M.D. [address] [facility] [address] Phone:?[phone] Fax:?[phone] Patient:?Chacorta Cyr D.O.B:?1940 Sex:?Female Phone:?[phone] [facility] MRN:?[id number] Exam Date:?07/07/2024 EXAM:?PET/CT EYES TO THIGHS, CANCER RESTAGING CLINICAL INFORMATION: Restaging breast cancer TECHNICAL INFORMATION: Helical acquisition of data was obtained from the orbits to the upper thighs with reconstruction of 3.75 mm thick images at 3.[address] data was used for attenuation correction. PET scanning was performed through the same anatomic range 60 minutes following administration of 10.71 mCi of 18-FDG delivered intravenously. The patient's glucose at the time of the injection was 84 mg/dL. PET, CT and PET/CT fusion images are interpreted using a computer viewing workstation. PET, CT and PET/CT fusion images were archived and saved in the patient's permanent medical record. COMPARISON: PET/CT 03/17/2024 and 11/12/2023 INTERPRETATION: Head and Neck: There are no abnormal hypermetabolic foci within the head or neck. There is physiologic uptake in the intracranial soft tissues. Chest: Mediastinal blood pool activity with a mean SUV of 2.59. Redemonstrated spiculated soft tissue density lesion in the left axilla measuring 1.7 x 1.2 cm, previously measuring 2.0 x 1.2 cm (series 202 image 92). Radiotracer avidity with an SUV max of 7.17 (previously 10.95). Stable 6 mm nodule in the left upper lobe (series 202 image 97). No associated radiotracer avidity on this exam. Stable nodularity in the left upper lobe along the fissure (series 202 image 101). No lymphadenopathy. Right chest wall vicente catheter. Stable heart size. Coronary artery atherosclerosis. Abdomen and Pelvis: Background liver parenchymal uptake with a mean SUV of 2.98. There is physiologic excretion of radiotracer in the urine and bowel. Two foci of increased FDG uptake associated with the rectum with an SUV max of 15.96. No discrete correlate lesion. A stable 0.9 cm cyst in the right hepatic lobe. Moderate stool burden. Normal appendix. Cystocele is present. The uterus is surgically absent. Skeleton, Musculature, and Integument: A new mild superior endplate compression deformity of the T9 vertebral body with low level radiotracer avidity and an SUV max of 3.69. Radiotracer avidity glands along the bilateral costovertebral junction region, right greater than left. No other suspicious osseous findings. CONCLUSION: * Slight interval decrease in size and metabolic rate of the patient's known left axillary mass. * Stable lung nodule in the left upper lobe without associated FDG avidity on this exam. No new or enlarging lung nodules. * A new mild superior endplate compression deformity of the T9 vertebral body with low-level FDG uptake. * A few foci of FDG avidity in the rectum are nonspecific but are more pronounced than the physiologic uptake throughout the rest of the bowel. There is no discrete CT correlate and findings could be infectious or inflammatory in nature. Consider colonoscopy if not recently performed to exclude underlying neoplasm. * Cystocele. Electronically signed on 07/11/2024 1:58:00 PM by Al Marino D.O
== END 2024-07-07 12:36 | disposition home or self-care (01) ==
LOC: RAD 12:35
PROVIDERS: PCP Family Medicine; Visit Provider Internal Medicine Hematology & Oncology
DX: C77.3 Secondary and unspecified malignant neoplasm of axilla and upper limb lymph nodes (principal); R91.8 Other nonspecific abnormal finding of lung field; M89.9 Disorder of bone, unspecified; N81.10 Cystocele, unspecified; Z79.899 Other long term (current) drug therapy; Z51.81 Encounter for therapeutic drug level monitoring
CPT/HCPCS: 78815; 93306; A9552

== ENCOUNTER 2024-07-20 11:00 | Outpatient (RCR) | payer MEDICARE, BC, SELFPAY ==
[2024-02-11] MEDS: FULVESTRANT 500MG KIT 500 MG IM (10:50)
--- NOTE | 2024-03-08 14:18 | ONC.NURNOTE ---
Pet CT rescheduled to 03/17 at 1530; per [facility], has been confirmed with patient.
--- NOTE | 2024-03-09 15:38 | ONC.NURNOTE ---
No show. Called pt. pt phone is not set up to take messages.
[2024-03-10 13:41] VITALS: BP 150/73; PULSE 63; RESP 16; TEMP 36.1; O2SAT 100
[2024-03-10] MEDS: FULVESTRANT 500MG KIT 500 MG IM (13:49)
[2024-03-17] MEDS: SODIUM CHLORIDE 0.9 % (FLUSH) 10 ML SYRINGE IVF ×2 (15:18→15:45)
[2024-03-17] MEDS: HEPARIN 500 UNIT/5 ML SYRINGE IVF (15:45)
--- NOTE | 2024-03-17 15:50 | PC.NURSE ---
Port flushed per EMAR and de-accessed intact while pt was in the PET scanner.
--- NOTE | 2024-03-23 14:00 | ONC.NURNOTE ---
I met with patient after her follow up appointment with Dr. Neves. We discussed the specialty pharmacy process. Rx for Capecitabine faxed to [facility], . Patient aware that we will wait for benefit investigation. She is not to start the medication until she has been directed. We will schedule follow up 3-4 weeks after she starts capecitabine. Patient will get baseline CBC, CMP with her INR draw in [place] this week. Orders were sent with patient.
--- NOTE | 2024-03-28 15:27 | ONC.NURNOTE ---
Call from [facility] with an update. Patients insurance approved capecitabine with a co-pay of $13/month. They will plan to ship the medication tomorrow with an arrival date Thursday. I left a message with patients daughter Latanya to discuss plan of care: when to start, INR management, etc. Once we know a start date, we will reach out to Dr. Montoya at [facility] to alert the need for more frequent INR checks. Patient will need a follow up appointment with Dr. Neves and labs about 4 weeks after starting Xeloda.
--- NOTE | 2024-03-31 16:00 | ONC.NURNOTE ---
Addendum entered by Mallorie Robertson 04/07/24 09:55: After speaking with Dr. Neves, the decision was made to discontinue Capecitabine and restart Doxil. Latanya was informed that a baseline ECHO will be needed. The ECHO will be done 04/13 and Doxil will resume on 04/21 with plans to treat Amalia every 4 weeks. aLtanya verbalizes understanding of plan. Original Note: Call from patients daughter to discuss concerns about Capecitabine. Latanya states that both the specialty pharmacy and the INR nurse, strongly cautioned them about the drug interaction of Capecitabine and Warfarin. I explained to her that we are aware of this interaction and would work closely with Dr. Montoya's team to monitor her INRs closely. I also spoke with Dr. Montoya regarding these concerns. Unfortunately, due to cost, they have been unable to use eliquis or xeralto. Dr. Dash said that they could consider discontinuing the warfarin and using ASA but this would slightly increase her stroke risk. Latanya also shares that Amalia is not driving, so frequent appointments will be very challenging for her. Latanya states that Amalia is not ready to throw in the towel but she is concerned that Capecitabine will be very hard on her. They are wondering if resuming Doxil would be an option. They would even be open to trying the every 4 week dosing vs. every 6 weeks. I assured Latanya that we would discuss their concerns with Dr. Neves next week. We will call Latanya back, with Dr. Neves's recommendation.
--- NOTE | 2024-04-07 11:20 | URNOTE ---
Prior authorization is not required for Doxorubicin Liposomal(J9001), Pt has medicare primary. Services are based on medical necessity and follow medicare guidelines.
[2024-04-13] MEDS: HEPARIN 500 UNIT/5 ML SYRINGE IVF (15:02)
[2024-04-13] MEDS: SODIUM CHLORIDE 0.9 % (FLUSH) 10 ML SYRINGE IVF (15:02)
[2024-04-13 15:16] LABS: Basophils Absolute Auto 0.03 K/uL (0.00-0.30); Basophils Percent Auto 0.5 % (0.0-3.0); Eosinophils Absolute Auto 0.24 K/uL (0.00-0.50); Eosinophils Percent Auto 4.1 % (0.0-7.0); Hematocrit 35.8 % (33.0-51.0); Hemoglobin* 11.5 gm/dL (12.0-16.0); Immature Granulocytes Abs Auto 0.01 K/uL (0.00-0.30); Immature Granulocytes Pct Auto 0.2 %; Lymphocytes Absolute Auto 1.71 K/uL (0.90-2.90); Mean Corpuscular HGB Conc 32 gm/dL (32-36); Mean Corpuscular Hemoglobin 30 pg (26-34); Mean Corpuscular Volume 92 fL (80-100); Neutrophils Absolute Auto 3.31 K/uL (1.7-7.0); Neutrophils Percent Auto 56.2 % (42.0-72.0); Platelet Count* 226 K/uL (140-440); RDW Coefficient of Variation % 14.2 % (11.5-15.5); Red Blood Count 3.88 m/uL (4.00-5.20); White Blood Count* 5.89 K/uL (4.50-11.00)
[2024-04-13 15:20] LABS: Slide Review Reflex No
[2024-04-13 15:33] LABS: Albumin* 4.2 g/dL (3.3-5.0)
[2024-04-13 15:34] LABS: Chloride* 102 mmol/L (96-114); Potassium* 4.1 mmol/L (3.6-5.1); Sodium* 139 mmol/L (135-149)
[2024-04-13 15:35] LABS: Albumin* 4.1 g/dL (3.3-5.0)
[2024-04-13 15:36] LABS: Anion Gap 5 mEq/L (7-15); Aspartate Amino Transferase* 26 U/L (12-35); Bilirubin Total* 0.5 mg/dL (0.1-1.5); Carbon Dioxide* 32 mmol/L (20-32); Estimated Glomerular Filt Rate 56 ml/min; Total Protein* 6.8 g/dL (6.0-8.3)
[2024-04-13 15:37] LABS: Alanine Aminotransferase* 19 U/L (4-35); Alkaline Phosphatase* 64 U/L (40-150); Blood Urea Nitrogen* 21 mg/dL (7-30); Calcium* 8.9 mg/dL (8.4-10.6); Glucose* 87 mg/dL (60-115); Total Protein* 6.9 g/dL (6.0-8.3)
[2024-04-13 15:38] LABS: Alanine Aminotransferase* 18 U/L (4-35); Alkaline Phosphatase* 64 U/L (40-150); Aspartate Amino Transferase* 26 U/L (12-35); Bilirubin Direct* 0.4 mg/dL (0.0-0.5); Bilirubin Total* 0.5 mg/dL (0.1-1.5)
[2024-04-21 13:10] VITALS: BP 123/67; PULSE 61; RESP 16; TEMP 36.5; O2SAT 97
[2024-04-21 13:15] LABS: Basophils Absolute Auto 0.03 K/uL (0.00-0.30); Basophils Percent Auto 0.5 % (0.0-3.0); Hematocrit 36.8 % (33.0-51.0); Hemoglobin* 11.8 gm/dL (12.0-16.0); Lymphocytes Absolute Auto 1.81 K/uL (0.90-2.90); Lymphocytes Percent Auto 27.2 % (20-44); Mean Corpuscular HGB Conc 32 gm/dL (32-36); Mean Corpuscular Hemoglobin 29 pg (26-34); Mean Corpuscular Volume 92 fL (80-100); Neutrophils Absolute Auto 4.09 K/uL (1.7-7.0); Neutrophils Percent Auto 61.3 % (42.0-72.0); Platelet Count* 249 K/uL (140-440); RDW Coefficient of Variation % 13.9 % (11.5-15.5); Red Blood Count 4.01 m/uL (4.00-5.20); White Blood Count* 6.66 K/uL (4.50-11.00)
[2024-04-21 13:19] LABS: Slide Review Reflex No
[2024-04-21 13:22] LABS: Albumin* 4.4 g/dL (3.3-5.0)
[2024-04-21 13:23] LABS: Chloride* 101 mmol/L (96-114); Sodium* 139 mmol/L (135-149)
[2024-04-21 13:25] LABS: Anion Gap 8 mEq/L (7-15); Aspartate Amino Transferase* 27 U/L (12-35); Bilirubin Total* 0.7 mg/dL (0.1-1.5); Carbon Dioxide* 30 mmol/L (20-32); Creatinine* 0.9 mg/dL (0.5-1.5); Estimated Glomerular Filt Rate 63 ml/min; Total Protein* 6.9 g/dL (6.0-8.3)
[2024-04-21 13:26] LABS: Alanine Aminotransferase* 20 U/L (4-35); Alkaline Phosphatase* 61 U/L (40-150); Blood Urea Nitrogen* 22 mg/dL (7-30); Calcium* 9.1 mg/dL (8.4-10.6); Glucose* 156 mg/dL (60-115)
--- NOTE | 2024-04-21 13:49 | ONC.NURNOTE ---
Patient requested we draw INR today as she was supposed to have it at [facility]. Called there to get order. Order was faxed and given to lab. They will fax results to Dr. Dash at [facility].
[2024-04-21] MEDS: ONDANSETRON 2 MG/ML inj 8 MG IVP (14:32)
[2024-04-21] MEDS: dexAMETHasone 20 MG in 0.9 % SODIUM CHLORIDE 100 ml 100 ML 408 MG IVPB (14:36)
[2024-04-21] MEDS: diphenhydrAMINE 25 MG, FAMOTIDINE 20 MG in 0.9 % SODIUM CHLORIDE 100 ml 100 ML 410 MG IVPB (14:48)
[2024-05-19 10:17] LABS: Basophils Absolute Auto 0.04 K/uL (0.00-0.30); Basophils Percent Auto 0.8 % (0.0-3.0); Eosinophils Absolute Auto 0.11 K/uL (0.00-0.50); Eosinophils Percent Auto 2.3 % (0.0-7.0); Hematocrit 36.3 % (33.0-51.0); Hemoglobin* 11.7 gm/dL (12.0-16.0); Immature Granulocytes Abs Auto 0.01 K/uL (0.00-0.30); Immature Granulocytes Pct Auto 0.2 %; Lymphocytes Absolute Auto 1.36 K/uL (0.90-2.90); Lymphocytes Percent Auto 28.1 % (20-44); Mean Corpuscular HGB Conc 32 gm/dL (32-36); Mean Corpuscular Hemoglobin 30 pg (26-34); Mean Corpuscular Volume 93 fL (80-100); Monocytes Percent Auto 16.1 % (0.0-11.0); Neutrophils Absolute Auto 2.54 K/uL (1.7-7.0); Neutrophils Percent Auto 52.5 % (42.0-72.0); Platelet Count* 283 K/uL (140-440); RDW Coefficient of Variation % 14.6 % (11.5-15.5); Red Blood Count 3.92 m/uL (4.00-5.20); White Blood Count* 4.84 K/uL (4.50-11.00)
[2024-05-19 10:21] LABS: Slide Review Reflex No
[2024-05-19 10:35] LABS: Chloride* 100 mmol/L (96-114)
[2024-05-19 10:36] LABS: Albumin* 4.2 g/dL (3.3-5.0); Potassium* 4.1 mmol/L (3.6-5.1); Sodium* 138 mmol/L (135-149)
[2024-05-19 10:38] LABS: Creatinine* 0.8 mg/dL (0.5-1.5); Estimated Glomerular Filt Rate 73 ml/min
[2024-05-19 10:39] LABS: Alanine Aminotransferase* 18 U/L (4-35); Alkaline Phosphatase* 63 U/L (40-150); Anion Gap 5 mEq/L (7-15); Aspartate Amino Transferase* 28 U/L (12-35); Bilirubin Total* 0.4 mg/dL (0.1-1.5); Blood Urea Nitrogen* 16 mg/dL (7-30); Calcium* 9.6 mg/dL (8.4-10.6); Carbon Dioxide* 33 mmol/L (20-32); Glucose* 94 mg/dL (60-115); Total Protein* 6.9 g/dL (6.0-8.3)
[2024-05-19] MEDS: diphenhydrAMINE 25 MG, FAMOTIDINE 20 MG in 0.9 % SODIUM CHLORIDE 100 ml 100 ML 402 MG IVPB (11:20)
[2024-05-19] MEDS: SODIUM CHLORIDE 0.9 % (FLUSH) 10 ML SYRINGE IVF ×2 (11:20→13:34)
[2024-05-19 11:37] LABS: Prothrombin Time 20.2 Seconds
[2024-05-19] MEDS: dexAMETHasone 20 MG in 0.9 % SODIUM CHLORIDE 100 ml 100 ML 420 MG IVPB (11:43)
[2024-05-19] MEDS: 0.9 % SODIUM CHLORIDE 250 ml IV (11:43)
[2024-05-19] MEDS: 5 % DEXTROSE 250 ML IV (12:03)
[2024-05-19] MEDS: ONDANSETRON 2 MG/ML inj 8 MG IVP (12:03)
[2024-05-19] MEDS: HEPARIN 500 UNIT/5 ML SYRINGE IVF (13:34)
[2024-06-15 09:42] LABS: Basophils Absolute Auto 0.06 K/uL (0.00-0.30); Basophils Percent Auto 0.9 % (0.0-3.0); Eosinophils Absolute Auto 0.15 K/uL (0.00-0.50); Eosinophils Percent Auto 2.3 % (0.0-7.0); Hematocrit 36.7 % (33.0-51.0); Hemoglobin* 11.7 gm/dL (12.0-16.0); Immature Granulocytes Abs Auto 0.01 K/uL (0.00-0.30); Immature Granulocytes Pct Auto 0.2 %; Lymphocytes Absolute Auto 1.59 K/uL (0.90-2.90); Lymphocytes Percent Auto 24.2 % (20-44); Mean Corpuscular HGB Conc 32 gm/dL (32-36); Mean Corpuscular Hemoglobin 30 pg (26-34); Mean Corpuscular Volume 93 fL (80-100); Monocytes Percent Auto 15.3 % (0.0-11.0); Neutrophils Absolute Auto 3.76 K/uL (1.7-7.0); Neutrophils Percent Auto 57.1 % (42.0-72.0); Platelet Count* 323 K/uL (140-440); RDW Coefficient of Variation % 15.1 % (11.5-15.5); Red Blood Count 3.93 m/uL (4.00-5.20); White Blood Count* 6.58 K/uL (4.50-11.00)
[2024-06-15 09:43] LABS: Slide Review Reflex No
[2024-06-15 09:52] LABS: Albumin* 4.1 g/dL (3.3-5.0); Chloride* 101 mmol/L (96-114); Potassium* 4.3 mmol/L (3.6-5.1); Sodium* 136 mmol/L (135-149)
[2024-06-15 09:54] LABS: Anion Gap 2 mEq/L (7-15); Bilirubin Total* 0.5 mg/dL (0.1-1.5); Carbon Dioxide* 33 mmol/L (20-32); Creatinine* 0.8 mg/dL (0.5-1.5); Estimated Glomerular Filt Rate 73 ml/min
[2024-06-15 09:55] LABS: Alanine Aminotransferase* 16 U/L (4-35); Alkaline Phosphatase* 65 U/L (40-150); Aspartate Amino Transferase* 26 U/L (12-35); Blood Urea Nitrogen* 20 mg/dL (7-30); Calcium* 9.4 mg/dL (8.4-10.6); Glucose* 93 mg/dL (60-115); Total Protein* 6.8 g/dL (6.0-8.3)
[2024-06-15 10:46] VITALS: BP 168/64; PULSE 48
[2024-06-15 10:50] VITALS: BP 149/66
[2024-06-15] MEDS: SODIUM CHLORIDE 0.9 % (FLUSH) 10 ML SYRINGE IVF ×2 (11:23→13:42)
[2024-06-15] MEDS: 5 % DEXTROSE 250 ML IV (11:24)
[2024-06-15] MEDS: ONDANSETRON 2 MG/ML inj 8 MG IVP (11:29)
[2024-06-15] MEDS: FAMOTIDINE 20 MG, diphenhydrAMINE 25 MG in 0.9 % SODIUM CHLORIDE 100 ml 100 ML 309 MG IVPB (11:32)
[2024-06-15] MEDS: dexAMETHasone 20 MG in 0.9 % SODIUM CHLORIDE 100 ml 100 ML 400 MG IVPB (12:02)
[2024-06-15] MEDS: HEPARIN 500 UNIT/5 ML SYRINGE IVF (13:42)
[2024-07-07] MEDS: HEPARIN 500 UNIT/5 ML SYRINGE IVF (15:41)
[2024-07-07] MEDS: SODIUM CHLORIDE 0.9 % (FLUSH) 10 ML SYRINGE IVF (15:41)
[2024-07-20 11:04] LABS: Basophils Absolute Auto 0.05 K/uL (0.00-0.30); Basophils Percent Auto 0.7 % (0.0-3.0); Eosinophils Absolute Auto 0.15 K/uL (0.00-0.50); Eosinophils Percent Auto 2.2 % (0.0-7.0); Hematocrit 36.2 % (33.0-51.0); Hemoglobin* 11.6 gm/dL (12.0-16.0); Immature Granulocytes Abs Auto 0.02 K/uL (0.00-0.30); Immature Granulocytes Pct Auto 0.3 %; Lymphocytes Percent Auto 21.8 % (20-44); Mean Corpuscular HGB Conc 32 gm/dL (32-36); Mean Corpuscular Hemoglobin 30 pg (26-34); Mean Corpuscular Volume 94 fL (80-100); Neutrophils Absolute Auto 4.06 K/uL (1.7-7.0); Platelet Count* 255 K/uL (140-440); RDW Coefficient of Variation % 15.2 % (11.5-15.5); Red Blood Count 3.85 m/uL (4.00-5.20); White Blood Count* 6.88 K/uL (4.50-11.00)
[2024-07-20 11:08] LABS: Slide Review Reflex No
[2024-07-20 11:16] LABS: Albumin* 4.2 g/dL (3.3-5.0); Chloride* 101 mmol/L (96-114)
[2024-07-20 11:17] LABS: Sodium* 139 mmol/L (135-149)
[2024-07-20 11:19] LABS: Anion Gap 8 mEq/L (7-15); Aspartate Amino Transferase* 28 U/L (12-35); Bilirubin Total* 0.6 mg/dL (0.1-1.5); Carbon Dioxide* 30 mmol/L (20-32); Creatinine* 0.7 mg/dL (0.5-1.5); Est. Creatinine Clearance* 34.64; Estimated Glomerular Filt Rate 85 ml/min; Total Protein* 6.9 g/dL (6.0-8.3)
[2024-07-20 11:20] LABS: Alanine Aminotransferase* 17 U/L (4-35); Alkaline Phosphatase* 69 U/L (40-150); Blood Urea Nitrogen* 17 mg/dL (7-30); Calcium* 9.1 mg/dL (8.4-10.6); Glucose* 96 mg/dL (60-115)
[2024-07-20] MEDS: SODIUM CHLORIDE 0.9 % (FLUSH) 10 ML SYRINGE IVF ×2 (12:17→14:14)
[2024-07-20] MEDS: ONDANSETRON 2 MG/ML inj 8 MG IVP (12:18)
[2024-07-20] MEDS: FAMOTIDINE 20 MG, diphenhydrAMINE 25 MG in 0.9 % SODIUM CHLORIDE 100 ml 100 ML 410 MG IVPB (12:21)
[2024-07-20] MEDS: dexAMETHasone 20 MG in 0.9 % SODIUM CHLORIDE 100 ml 100 ML 408 MG IVPB (12:38)
[2024-07-20] MEDS: HEPARIN 500 UNIT/5 ML SYRINGE IVF (14:14)
--- NOTE | 2024-08-08 12:25 | ONC.NURNOTE ---
Call from patients daughter Latanya to discuss colonoscopy recommendations. Latanya shares that she has talked with her mom at length about the recommendation for a colonoscopy to further evaluate an area of rectal enhancement on the PET/CT. Both the patient and daughter would like to wait and see what the area looks like on the next scan and if it is worse, they will consider the colonoscopy. Both of them are concerned about how difficult the prep would be on her. Reviewed with Dr. Neves. We will re-address at her next appointment.
== END 2024-08-09 23:59 | disposition home or self-care (01) ==
LOC: CCIC 11:00
PROVIDERS: Physician Assistant; PCP Family Medicine; Referring Provider Family Medicine; Visit Provider Internal Medicine Hematology & Oncology
DX: Z51.11 Encounter for antineoplastic chemotherapy (principal); C50.912 Malignant neoplasm of unspecified site of left female breast; Z17.0 Estrogen receptor positive status [ER+]; C77.3 Secondary and unspecified malignant neoplasm of axilla and upper limb lymph nodes; I48.91 Unspecified atrial fibrillation; Z79.01 Long term (current) use of anticoagulants
CPT/HCPCS: 36415; 36591; 78815; 80053; 80076; 85025; 85610; 93306; 96366; 96376; 96401; 96413; 99211; 99214; 99215; G0463; A9552; J1100; J1200; J1642; J2405; J7050; J9395; Q2050; S0028

== ENCOUNTER 2024-11-24 14:18 | Outpatient (CLI) | payer MEDICARE, BC, SELFPAY ==
--- NOTE | 2024-11-24 14:30 | PE_ITS ---
EXAM: PET/CT SCAN MID-ORBITS TO PROXIMAL THIGHS CLINICAL INFORMATION: Breast carcinoma. TECHNICAL INFORMATION: Spiral acquisition of data was obtained from the mid orbits to the proximal thighs with reconstruction of 3.75 mm thick images at 3.[address] data was used for attenuation correction. PET scanning was performed through the same anatomic range 59 minutes following administration of 11.88 mCi of 18-FDG delivered intravenously. The patient's glucose at the time of the injection was 97 mg/dL. PET, CT and PET/CT fusion images are interpreted using a computer viewing workstation. SUV max liver 3.51; BMI normalization method. COMPARISON:?PET/CT 07/07/2024 prior INTERPRETATION: Head and Neck: Physiologic intracranial uptake. Chest: Stable appearance of 17 x 12 mm soft tissue density left axillary mass image 83, SUV max 11.14. Stable 6 mm lateral left upper lobe nodule image 87 without FDG avidity. FDG avid left supraclavicular 5 mm nodule, SUV max 5.87, image 67, without definite CT nodule. Similar-appearing small foci of FDG uptake including left suprahilar location image 91, SUV max 11.12, mediastinal, image 98, SUV max 9.69, right pericardial, SUV max 11.9 and left myocardial, image 121, SUV max 9.5, without definite corresponding CT abnormality. Findings are nonspecific,, possibly representing metastasis. Abdomen, Pelvis and Proximal Thighs: No liver lesion. No biliary duct dilatation. Pancreas, adrenal glands, spleen, kidneys are unremarkable. No pathologic mesenteric or retroperitoneal adenopathy. Physiologic GI/ uptake. No osseous abnormality CONCLUSION: 1. Stable 17 x 12 mm soft tissue left axillary mass, SUV max 11.14. Several small FDG avid foci including left supraclavicular, left suprahilar, mediastinal, right pericardial and left myocardial as described above, without definite correlate CT lesions. Findings are nonspecific,, possibly representing metastasis. Short-term 3 month follow-up PET/CT is recommended. Electronically signed on 11/28/2024 1:24:00 PM by Sammy Gamboa M.D.
== END 2024-11-24 14:19 | disposition home or self-care (01) ==
LOC: RAD 14:19
PROVIDERS: PCP Family Medicine; Visit Provider Internal Medicine Hematology & Oncology
DX: C77.3 Secondary and unspecified malignant neoplasm of axilla and upper limb lymph nodes (principal)
CPT/HCPCS: 78815; A9552

== ENCOUNTER 2024-11-25 12:57 | Outpatient (CLI) | payer MEDICARE, BC, SELFPAY | END 2024-11-25 12:58 | disposition home or self-care (01) | LOC: RAD 12:58 | PROVIDERS: PCP Family Medicine; Visit Provider Internal Medicine Hematology & Oncology | DX: I42.7 Cardiomyopathy due to drug and external agent (principal); I35.1 Nonrheumatic aortic (valve) insufficiency; I34.0 Nonrheumatic mitral (valve) insufficiency; Z92.21 Personal history of antineoplastic chemotherapy | CPT/HCPCS: 93306 ==

== ENCOUNTER 2025-01-06 07:51 | Outpatient (CLI) | payer MEDICARE, BC, SELFPAY | END 2025-01-06 07:52 | disposition home or self-care (01) | PROVIDERS: PCP Family Medicine; Visit Provider Internal Medicine Hematology & Oncology | DX: C77.9 Secondary and unspecified malignant neoplasm of lymph node, unspecified (principal); C50.612 Malignant neoplasm of axillary tail of left female breast; C77.3 Secondary and unspecified malignant neoplasm of axilla and upper limb lymph nodes | CPT/HCPCS: 38505; 76942; 88305; 88360; 88361; A4649 ==

== ENCOUNTER 2025-02-20 09:15 | Outpatient (RCR) | payer MEDICARE, BC, SELFPAY ==
[2024-08-25 09:57] LABS: Basophils Absolute Auto 0.04 K/uL (0.00-0.30); Basophils Percent Auto 0.7 % (0.0-3.0); Eosinophils Absolute Auto 0.14 K/uL (0.00-0.50); Eosinophils Percent Auto 2.5 % (0.0-7.0); Hematocrit 35.7 % (33.0-51.0); Hemoglobin* 11.5 gm/dL (12.0-16.0); Immature Granulocytes Abs Auto 0.02 K/uL (0.00-0.30); Immature Granulocytes Pct Auto 0.4 %; Lymphocytes Absolute Auto 1.26 K/uL (0.90-2.90); Lymphocytes Percent Auto 22.2 % (20-44); Mean Corpuscular HGB Conc 32 gm/dL (32-36); Mean Corpuscular Hemoglobin 31 pg (26-34); Mean Corpuscular Volume 95 fL (80-100); Monocytes Percent Auto 19.4 % (0.0-11.0); Neutrophils Absolute Auto 3.11 K/uL (1.7-7.0); Neutrophils Percent Auto 54.8 % (42.0-72.0); Platelet Count* 225 K/uL (140-440); RDW Coefficient of Variation % 14.4 % (11.5-15.5); Red Blood Count 3.76 m/uL (4.00-5.20); White Blood Count* 5.67 K/uL (4.50-11.00)
[2024-08-25 09:58] LABS: Slide Review Reflex No
[2024-08-25 10:12] LABS: Albumin* 4.1 g/dL (3.3-5.0); Chloride* 99 mmol/L (96-114); Sodium* 136 mmol/L (135-149)
[2024-08-25 10:13] LABS: Potassium* 3.8 mmol/L (3.6-5.1)
[2024-08-25 10:15] LABS: Alanine Aminotransferase* 17 U/L (4-35); Alkaline Phosphatase* 56 U/L (40-150); Aspartate Amino Transferase* 25 U/L (12-35); Bilirubin Total* 0.4 mg/dL (0.1-1.5); Blood Urea Nitrogen* 23 mg/dL (7-30); Calcium* 9.4 mg/dL (8.4-10.6); Carbon Dioxide* 31 mmol/L (20-32); Creatinine* 0.8 mg/dL (0.5-1.5); Estimated Glomerular Filt Rate 73 ml/min; Glucose* 96 mg/dL (60-115); Total Protein* 6.8 g/dL (6.0-8.3)
[2024-08-25 10:17] LABS: Anion Gap 6 mEq/L (7-15)
[2024-08-25] MEDS: 0.9 % SODIUM CHLORIDE 250 ml IV (11:05)
[2024-08-25] MEDS: SODIUM CHLORIDE 0.9 % (FLUSH) 10 ML SYRINGE IVF (11:05)
[2024-08-25] MEDS: ONDANSETRON 2 MG/ML inj 8 MG IVP (11:17)
[2024-08-25] MEDS: dexAMETHasone 20 MG in 0.9 % SODIUM CHLORIDE 100 ml 100 ML 408 MG IVPB (11:17)
[2024-08-25] MEDS: FAMOTIDINE 20 MG, diphenhydrAMINE 25 MG in 0.9 % SODIUM CHLORIDE 100 ml 100 ML 308 MG IVPB (11:42)
[2024-09-28 13:26] LABS: Basophils Absolute Auto 0.04 K/uL (0.00-0.30); Basophils Percent Auto 0.6 % (0.0-3.0); Eosinophils Absolute Auto 0.13 K/uL (0.00-0.50); Eosinophils Percent Auto 1.9 % (0.0-7.0); Hematocrit 35.4 % (33.0-51.0); Hemoglobin* 11.5 gm/dL (12.0-16.0); Immature Granulocytes Abs Auto 0.01 K/uL (0.00-0.30); Immature Granulocytes Pct Auto 0.1 %; Lymphocytes Absolute Auto 1.55 K/uL (0.90-2.90); Lymphocytes Percent Auto 22.2 % (20-44); Mean Corpuscular HGB Conc 33 gm/dL (32-36); Mean Corpuscular Hemoglobin 31 pg (26-34); Mean Corpuscular Volume 95 fL (80-100); Monocytes Percent Auto 11.3 % (0.0-11.0); Neutrophils Absolute Auto 4.45 K/uL (1.7-7.0); Neutrophils Percent Auto 63.9 % (42.0-72.0); Platelet Count* 260 K/uL (140-440); RDW Coefficient of Variation % 14.5 % (11.5-15.5); Red Blood Count 3.72 m/uL (4.00-5.20); White Blood Count* 6.97 K/uL (4.50-11.00)
[2024-09-28 13:49] LABS: Slide Review Reflex No
[2024-09-28 13:50] LABS: Chloride* 99 mmol/L (96-114); Sodium* 138 mmol/L (135-149)
[2024-09-28 13:51] LABS: Potassium* 3.8 mmol/L (3.6-5.1)
[2024-09-28 13:53] LABS: Alanine Aminotransferase* 17 U/L (4-35); Alkaline Phosphatase* 56 U/L (40-150); Anion Gap 6 mEq/L (7-15); Aspartate Amino Transferase* 25 U/L (12-35); Bilirubin Total* 0.2 mg/dL (0.1-1.5); Blood Urea Nitrogen* 20 mg/dL (7-30); Carbon Dioxide* 33 mmol/L (20-32); Creatinine* 0.9 mg/dL (0.5-1.5); Est. Creatinine Clearance* 34.64; Estimated Glomerular Filt Rate 63 ml/min; Glucose* 135 mg/dL (60-115); Total Protein* 6.6 g/dL (6.0-8.3)
[2024-09-28 13:54] LABS: Calcium* 9.2 mg/dL (8.4-10.6)
[2024-09-28] MEDS: ONDANSETRON 2 MG/ML inj 8 MG IVP (14:24)
[2024-09-28] MEDS: SODIUM CHLORIDE 0.9 % (FLUSH) 10 ML SYRINGE IVF ×2 (14:25→16:18)
[2024-09-28] MEDS: 5 % DEXTROSE 250 ML IV (14:25)
[2024-09-28] MEDS: FAMOTIDINE 20 MG, diphenhydrAMINE 25 MG in 0.9 % SODIUM CHLORIDE 100 ml 100 ML 410 MG IVPB (14:30)
[2024-09-28] MEDS: dexAMETHasone 20 MG in 0.9 % SODIUM CHLORIDE 100 ml 100 ML 400 MG IVPB (14:51)
[2024-09-28] MEDS: HEPARIN 500 UNIT/5 ML SYRINGE IVF (16:18)
--- NOTE | 2024-09-30 10:56 | ONC.NURNOTE ---
I spoke with patients daughter Latanya to discuss scheduling next Doxil, due the week of . Latanya requests that we delay the next Doxil until after her PET/CT in mid November so that Amalia can enjoy the holidays and her birthday with family. PET/CT scheduled for 11/24 and follow-up/Doxil scheduled for 11/30. ECHO scheduling still pending. Latanya verbalizes understanding of plan.
[2024-11-30] MEDS: SODIUM CHLORIDE 0.9 % (FLUSH) 10 ML SYRINGE IVF ×2 (12:20→15:55)
[2024-11-30 12:25] LABS: Basophils Absolute Auto 0.04 K/uL (0.00-0.30); Basophils Percent Auto 0.5 % (0.0-3.0); Eosinophils Absolute Auto 0.32 K/uL (0.00-0.50); Eosinophils Percent Auto 4.1 % (0.0-7.0); Hematocrit 37.2 % (33.0-51.0); Hemoglobin* 12.2 gm/dL (12.0-16.0); Immature Granulocytes Abs Auto 0.01 K/uL (0.00-0.30); Immature Granulocytes Pct Auto 0.1 %; Mean Corpuscular HGB Conc 33 gm/dL (32-36); Mean Corpuscular Hemoglobin 31 pg (26-34); Mean Corpuscular Volume 93 fL (80-100); Monocytes Percent Auto 8.5 % (0.0-11.0); Neutrophils Absolute Auto 5.25 K/uL (1.7-7.0); Neutrophils Percent Auto 67.8 % (42.0-72.0); Platelet Count* 248 K/uL (140-440); RDW Coefficient of Variation % 13.8 % (11.5-15.5); White Blood Count* 7.75 K/uL (4.50-11.00)
[2024-11-30 12:34] LABS: Slide Review Reflex No
[2024-11-30 12:37] LABS: Albumin* 4.2 g/dL (3.3-5.0); Chloride* 98 mmol/L (96-114)
[2024-11-30 12:38] LABS: Potassium* 3.8 mmol/L (3.6-5.1); Sodium* 138 mmol/L (135-149)
[2024-11-30 12:40] LABS: Anion Gap 7 mEq/L (7-15); Aspartate Amino Transferase* 25 U/L (12-35); Bilirubin Total* 0.6 mg/dL (0.1-1.5); Carbon Dioxide* 33 mmol/L (20-32); Creatinine* 0.9 mg/dL (0.5-1.5); Est. Creatinine Clearance* 34.02; Estimated Glomerular Filt Rate 63 ml/min; Total Protein* 6.9 g/dL (6.0-8.3)
[2024-11-30 12:41] LABS: Alanine Aminotransferase* 19 U/L (4-35); Alkaline Phosphatase* 62 U/L (40-150); Blood Urea Nitrogen* 25 mg/dL (7-30); Calcium* 9.5 mg/dL (8.4-10.6); Glucose* 170 mg/dL (60-115)
[2024-11-30] MEDS: 5 % DEXTROSE 250 ML IV (13:30)
[2024-11-30] MEDS: ONDANSETRON 2 MG/ML inj 8 MG IVP (13:57)
[2024-11-30] MEDS: dexAMETHasone 20 MG in 0.9 % SODIUM CHLORIDE 100 ml 100 ML 400 MG IVPB (13:58)
[2024-11-30] MEDS: FAMOTIDINE 20 MG, diphenhydrAMINE 25 MG in 0.9 % SODIUM CHLORIDE 100 ml 100 ML 307.5 MG IVPB (14:23)
[2024-11-30] MEDS: HEPARIN 500 UNIT/5 ML SYRINGE IVF (15:55)
--- NOTE | 2024-12-01 15:47 | ONC.NURNOTE ---
Patients daughter Latanya called to discuss PET/CT results and plan of care. Latanya requests to be present for the next visit but it unable to come on 01/11. Schedule changed for Amalia to see Dr. Neves on 01/02 and get treatment the following week on 01/11.
--- NOTE | 2025-01-16 16:03 | ONC.NURNOTE ---
[facility] testing requested on 01/06/2025 axillary lymph node specimen. Request and supporting records faxed.
[2025-01-17 13:16] LABS: Basophils Absolute Auto 0.04 K/uL (0.00-0.30); Basophils Percent Auto 0.5 % (0.0-3.0); Eosinophils Absolute Auto 0.46 K/uL (0.00-0.50); Eosinophils Percent Auto 6.2 % (0.0-7.0); Hematocrit 33.5 % (33.0-51.0); Hemoglobin* 10.9 gm/dL (12.0-16.0); Immature Granulocytes Abs Auto 0.01 K/uL (0.00-0.30); Immature Granulocytes Pct Auto 0.1 %; Lymphocytes Absolute Auto 1.54 K/uL (0.90-2.90); Lymphocytes Percent Auto 20.7 % (20-44); Mean Corpuscular HGB Conc 33 gm/dL (32-36); Mean Corpuscular Hemoglobin 31 pg (26-34); Mean Corpuscular Volume 95 fL (80-100); Monocytes Percent Auto 9.6 % (0.0-11.0); Neutrophils Absolute Auto 4.67 K/uL (1.7-7.0); Neutrophils Percent Auto 62.9 % (42.0-72.0); Platelet Count* 246 K/uL (140-440); RDW Coefficient of Variation % 14.3 % (11.5-15.5); Red Blood Count 3.54 m/uL (4.00-5.20); White Blood Count* 7.43 K/uL (4.50-11.00)
[2025-01-17 13:18] VITALS: BP 128/71; PULSE 59; RESP 16; TEMP 36.3; O2SAT 97
[2025-01-17 13:25] LABS: Albumin* 4.1 g/dL (3.3-5.0); Chloride* 99 mmol/L (96-114); Potassium* 3.6 mmol/L (3.6-5.1); Sodium* 138 mmol/L (135-149)
[2025-01-17 13:26] LABS: Slide Review Reflex No
[2025-01-17 13:27] LABS: Anion Gap 6 mEq/L (7-15); Bilirubin Total* 0.5 mg/dL (0.1-1.5); Blood Urea Nitrogen* 28 mg/dL (7-30); Carbon Dioxide* 33 mmol/L (20-32); Est. Creatinine Clearance* 34.02; Estimated Glomerular Filt Rate 55 ml/min
[2025-01-17 13:28] LABS: Alanine Aminotransferase* 19 U/L (4-35); Alkaline Phosphatase* 55 U/L (40-150); Aspartate Amino Transferase* 25 U/L (12-35); Calcium* 9.1 mg/dL (8.4-10.6); Glucose* 143 mg/dL (60-115); Total Protein* 6.8 g/dL (6.0-8.3)
[2025-01-17] MEDS: 0.9 % SODIUM CHLORIDE 250 ml IV (13:30)
[2025-01-17] MEDS: ONDANSETRON 2 MG/ML inj 8 MG IVP (14:22)
[2025-01-17] MEDS: dexAMETHasone 20 MG in 0.9 % SODIUM CHLORIDE 100 ml 100 ML 400 MG IVPB (14:22)
[2025-01-17] MEDS: FAMOTIDINE 20 MG, diphenhydrAMINE 25 MG in 0.9 % SODIUM CHLORIDE 100 ml 100 ML 309 MG IVPB (14:45)
[2025-01-17] MEDS: 5 % DEXTROSE 250 ML IV (15:00)
[2025-01-17] MEDS: SODIUM CHLORIDE 0.9 % (FLUSH) 10 ML SYRINGE IVF (16:25)
[2025-01-17] MEDS: HEPARIN 500 UNIT/5 ML SYRINGE IVF (16:28)
--- NOTE | 2025-01-24 11:59 | ONC.NURNOTE ---
Pt's daughter Latanya called asking to reschedule oncology appt and next treatment to week of 02/20 from 02/08. Pt scheduled to see Dr. Neves Mon 02/20 then have labs following (unable to come in earlier than 815 for labs) with Doxil 02/21.
[2025-02-20] MEDS: 0.9 % SODIUM CHLORIDE 1000 ml 1,000 ML IV (09:25)
[2025-02-20] MEDS: DEXAMETHASONE 10 MG/ML PF 8 MG IVP (09:55)
[2025-02-20] MEDS: SODIUM CHLORIDE 0.9 % (FLUSH) 10 ML SYRINGE IVF (09:55)
[2025-02-20] MEDS: HEPARIN 500 UNIT/5 ML SYRINGE IVF (09:55)
--- NOTE | 2025-02-21 12:06 | URNOTE ---
Prior auth is not required for Pembrolizumab ([id number]). Services are based on medical necessity and follow medicare guidelines
== END 2025-02-21 23:59 | disposition home or self-care (01) ==
LOC: CCIC 09:15
PROVIDERS: Clinical Nurse Specialist; PCP Family Medicine; Referring Provider Family Medicine; Visit Provider Internal Medicine Hematology & Oncology
DX: C50.912 Malignant neoplasm of unspecified site of left female breast (principal); Z17.0 Estrogen receptor positive status [ER+]; C77.3 Secondary and unspecified malignant neoplasm of axilla and upper limb lymph nodes; I48.91 Unspecified atrial fibrillation; Z79.01 Long term (current) use of anticoagulants; M85.80 Other specified disorders of bone density and structure, unspecified site
CPT/HCPCS: 36415; 36591; 80053; 85025; 96361; 96366; 96367; 96368; 96374; 96375; 96376; 96413; 99214; 99215; G0463; J1100; J1200; J1642; J2405; J7030; J7050; Q2050; S0028

== ENCOUNTER 2025-08-17 15:33 | Outpatient (CLI) | payer MEDICARE, BC, SELFPAY ==
--- NOTE | 2025-08-17 15:30 | CRLHL7_ITS ---
For Patients: As a result of the 21st Century Cures Act, medical imaging exams and procedure reports are released immediately into your electronic medical record. You may view this report before your referring provider. If you have questions, please contact your health care provider. EXAM: FDG PET-CT Skull Base to Thighs CLINICAL INFORMATION: 84-year-old woman with history of breast cancer. Started pembrolizumab immunotherapy 03/23/2025. Restaging TECHNIQUE: Radiopharmaceutical: 18F-fluorodeoxyglucose (18F-FDG) Dose: 11.9 MilliCurie. Blood glucose: 103 mg/dL. Image acquisition: At approximately 60 minutes following IV tracer administration via an access port, positron emission tomography was performed from the skull base through the mid thigh. Non-contrast low-dose helical CT imaging was performed over the same range without breath-hold for attenuation correction of PET images and anatomic correlation; it is neither sufficient, nor should it be substituted for diagnostic purposes. COMPARISON: FDG PET-CT 11/24/2024 FINDINGS: Mediastinal blood pool FDG uptake: SUVMax 2.9 (Image 102) Liver background parenchymal FDG uptake: SUVMax 3.3 (Image 143) PET Findings: Postoperative changes in the left breast from prior lumpectomy. No abnormal focal increased FDG uptake in the left breast. 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 For example, new intense FDG avidity and increased size of a 1.2 x 1.0 cm left upper lobe subpleural lung nodule SUVMax 13.0 (Image 95), previously 0.6 X 0.5 Cm and non FDG avid (image 86, remeasured in the same plane). No abnormal FDG uptake in the visualized skeleton. Tracer uptake elsewhere is physiologic. Non-PET findings: Right internal jugular port catheter with the tip terminating at the cavoatrial junction. Coronary artery calcifications. Atherosclerotic calcifications of the thoracic and abdominal aorta. Subsegmental atelectasis/scarring in the right lung. Non FDG avid right hepatic hypodensity, likely represents a hemangioma. Pessary in position. Hysterectomy. Multilevel degenerative changes in the spine. Grade 1 anterolisthesis L4-L5. IMPRESSION: 1. Postoperative changes in the left breast from prior lumpectomy. No evidence of FDG avid locally recurrent neoplasm in the left breast. 2. Overall new and increased FDG avid left supraclavicular, left hilar, and left axillary lymph nodes. Differential considerations include new/increased metabolically active benji metastases, however in the setting of pembrolizumab immunotherapy started after the last FDG PET-CT comparison from 11/24/2024, differential considerations include inflammatory lymph nodes. Superimposed processes are possible. 3. Substantially increased size and new/increased intense FDG avidity left upper lobe pulmonary nodules that are likely metastatic, however differential considerations include inflammatory change in the setting of immunotherapy. Superimposed processes are possible. This can be reassessed on short interval repeat FDG PET-CT in 2 months. Dictated by Myke Campos MD @ 08/19/2025 10:39:11 AM (Electronically Signed)
== END 2025-08-17 15:34 | disposition home or self-care (01) ==
LOC: RAD 15:34
PROVIDERS: PCP Family Medicine; Visit Provider Internal Medicine Hematology & Oncology
DX: C77.3 Secondary and unspecified malignant neoplasm of axilla and upper limb lymph nodes (principal)
CPT/HCPCS: 78815; A9552

== ENCOUNTER 2025-08-22 10:30 | Outpatient (RCR) | payer MEDICARE, BC, SELFPAY ==
[2025-03-23] MEDS: SODIUM CHLORIDE 0.9 % (FLUSH) 10 ML SYRINGE IVF ×2 (08:00→10:33)
[2025-03-23 08:06] LABS: Hematocrit* 34.4 % (33.0-51.0); Hemoglobin* 11.2 gm/dL (12.0-16.0); Immature Granulocytes Abs Auto 0.01 K/uL (0.00-0.30); Immature Granulocytes Pct Auto 0.1 %; Mean Corpuscular HGB Conc 33 gm/dL (32-36); Mean Corpuscular Hemoglobin 31 pg (26-34); Mean Corpuscular Volume 94 fL (80-100); RDW Coefficient of Variation % 14.0 % (11.5-15.5); Red Blood Count* 3.66 m/uL (4.00-5.20); White Blood Count* 6.90 K/uL (4.50-11.00)
[2025-03-23 08:10] LABS: Lymphocytes Absolute Auto 1.30 K/uL (0.90-2.90)
[2025-03-23 08:11] LABS: Slide Review Reflex No
[2025-03-23 08:20] LABS: Chloride* 102 mmol/L (96-114)
[2025-03-23 08:21] LABS: Albumin* 4.1 g/dL (3.3-5.0); Potassium* 3.9 mmol/L (3.6-5.1); Sodium* 139 mmol/L (135-149)
[2025-03-23 08:23] LABS: Alanine Aminotransferase* 21 U/L (4-35); Anion Gap 7 mEq/L (7-15); Aspartate Amino Transferase* 28 U/L (12-35); Blood Urea Nitrogen* 22 mg/dL (7-30); Carbon Dioxide* 30 mmol/L (20-32); Creatinine* 0.9 mg/dL (0.5-1.5); Est. Creatinine Clearance* 34.02; Estimated Glomerular Filt Rate 63 ml/min
[2025-03-23 08:24] LABS: Alkaline Phosphatase* 48 U/L (40-150); Bilirubin Total* 0.5 mg/dL (0.1-1.5); Calcium* 9.4 mg/dL (8.4-10.6); Glucose* 91 mg/dL (60-115); Total Protein* 6.8 g/dL (6.0-8.3)
[2025-03-23] MEDS: PEMBROLIZUMAB 200 MG, TUBING PRIMARY 1 EACH, In-line 0.2 micron filter set 1 EACH in 0.... 216 MG IVPB (09:57)
[2025-03-23] MEDS: HEPARIN 500 UNIT/5 ML SYRINGE IVF (10:33)
[2025-04-20] MEDS: SODIUM CHLORIDE 0.9 % (FLUSH) 10 ML SYRINGE IVF ×2 (12:45→15:27)
[2025-04-20 12:59] LABS: Hematocrit* 32.5 % (33.0-51.0); Hemoglobin* 10.5 gm/dL (12.0-16.0); Immature Granulocytes Abs Auto 0.01 K/uL (0.00-0.30); Immature Granulocytes Pct Auto 0.1 %; Lymphocytes Absolute Auto 1.50 K/uL (0.90-2.90); Mean Corpuscular HGB Conc 32 gm/dL (32-36); Mean Corpuscular Hemoglobin 30 pg (26-34); Mean Corpuscular Volume 94 fL (80-100); RDW Coefficient of Variation % 13.8 % (11.5-15.5); Red Blood Count* 3.45 m/uL (4.00-5.20); White Blood Count* 7.01 K/uL (4.50-11.00)
[2025-04-20 13:05] LABS: Slide Review Reflex No
[2025-04-20 13:06] LABS: Chloride* 102 mmol/L (96-114)
[2025-04-20 13:07] LABS: Albumin* 3.8 g/dL (3.3-5.0); Potassium* 3.7 mmol/L (3.6-5.1); Sodium* 139 mmol/L (135-149)
[2025-04-20 13:09] LABS: Alanine Aminotransferase* 21 U/L (4-35); Anion Gap 6 mEq/L (7-15); Aspartate Amino Transferase* 29 U/L (12-35); Blood Urea Nitrogen* 22 mg/dL (7-30); Carbon Dioxide* 31 mmol/L (20-32); Creatinine* 1.0 mg/dL (0.5-1.5); Est. Creatinine Clearance* 34.02; Estimated Glomerular Filt Rate 55 ml/min
[2025-04-20 13:10] LABS: Alkaline Phosphatase* 52 U/L (40-150); Bilirubin Total* 0.4 mg/dL (0.1-1.5); Calcium* 9.1 mg/dL (8.4-10.6); Glucose* 126 mg/dL (60-115); Total Protein* 6.4 g/dL (6.0-8.3)
[2025-04-20] MEDS: PEMBROLIZUMAB 200 MG, TUBING PRIMARY 1 EACH, In-line 0.2 micron filter set 1 EACH in 0.... 216 MG IVPB (14:54)
[2025-04-20] MEDS: HEPARIN 500 UNIT/5 ML SYRINGE IVF (15:27)
[2025-05-11 09:55] VITALS: BP 160/71; PULSE 54; TEMP 36.1; O2SAT 98
[2025-05-11] MEDS: SODIUM CHLORIDE 0.9 % (FLUSH) 10 ML SYRINGE IVF ×2 (10:00→12:03)
[2025-05-11 10:22] LABS: Hematocrit* 31.7 % (33.0-51.0); Hemoglobin* 10.2 gm/dL (12.0-16.0); Immature Granulocytes Abs Auto 0.01 K/uL (0.00-0.30); Immature Granulocytes Pct Auto 0.2 %; Lymphocytes Absolute Auto 1.41 K/uL (0.90-2.90); Mean Corpuscular HGB Conc 32 gm/dL (32-36); Mean Corpuscular Hemoglobin 30 pg (26-34); Mean Corpuscular Volume 93 fL (80-100); RDW Coefficient of Variation % 14.1 % (11.5-15.5); Red Blood Count* 3.40 m/uL (4.00-5.20); White Blood Count* 6.61 K/uL (4.50-11.00)
[2025-05-11 10:24] LABS: Slide Review Reflex No
[2025-05-11 10:35] LABS: Albumin* 3.8 g/dL (3.3-5.0); Chloride* 100 mmol/L (96-114); Potassium* 3.8 mmol/L (3.6-5.1); Sodium* 138 mmol/L (135-149)
[2025-05-11 10:37] LABS: Anion Gap 6 mEq/L (7-15); Bilirubin Total* 0.5 mg/dL (0.1-1.5); Blood Urea Nitrogen* 21 mg/dL (7-30); Carbon Dioxide* 32 mmol/L (20-32); Creatinine* 0.9 mg/dL (0.5-1.5); Est. Creatinine Clearance* 34.02; Estimated Glomerular Filt Rate 63 ml/min
[2025-05-11 10:38] LABS: Alanine Aminotransferase* 17 U/L (4-35); Alkaline Phosphatase* 59 U/L (40-150); Aspartate Amino Transferase* 28 U/L (12-35); Calcium* 9.0 mg/dL (8.4-10.6); Glucose* 97 mg/dL (60-115); Total Protein* 6.6 g/dL (6.0-8.3)
[2025-05-11] MEDS: HEPARIN 500 UNIT/5 ML SYRINGE IVF (12:03)
[2025-05-11] MEDS: PEMBROLIZUMAB 400 MG, TUBING PRIMARY 1 EACH, In-line 0.2 micron filter set 1 EACH in 0.... 232 MG IVPB (12:33)
--- NOTE | 2025-05-30 11:51 | ONC.NURNOTE ---
Concern regarding symptoms Ms. Cyr's daughter Latanya Lindsay called to report symptoms her Mom is experiencing. After her last treatment on she developed a cold with coughing. Went to urgent care, and supportive measures recommended. Went to urgent care again this past week. Again no additional interventions noted. Since that time she continues to have significant fatigue, decreased PO intake until at least noon. Sleeping more. Pt is getting forgetful, mixed up about how she is feeling. Has a nurse who checks in with her for 2 hours once a week, who also is noting these things. pt is complaining a lot about how she is feeling and negative about treatments, appointments. She saw cardiology today - reports blood pressure elevated for pt at 148/74, no other recs. Daughter will have pt keep her appointment with Joyce Majano PA-C on 06/01/25 for symptom check after keytruda 400mg on 05/11/25. Daughter will not be able to be at appointment but wants to make sure that provider is aware of symptoms above. Concern that she is only eating about 1 meal a day - has option at assisted living to have 2 meals per day Very little oral intake of fluids - maybe 1 glass of water per day. Decreased appetite. Sleeping more. Significant fatigue. I will share this information with clinic nurse and Joyce Majano for 06/01/25 appt.
--- NOTE | 2025-06-20 11:12 | ONC.NURNOTE ---
Pt's daughter Latanya called to reschedule lab/Keira/Keytruda sched 06/22 for 07/18. Pt had a big family wedding weekend and is having more fatigue. She feels its best to have a few additional weeks to recover before next dose immunotherapy. Appts moved.
--- NOTE | 2025-06-29 11:22 | ONC.NURNOTE ---
Addendum entered by Mallorie Robertson 07/05/25 15:57: Discussed with Dr. Neves. Order obtained for PET/CT prior to follow up visit. Message left for Latanya with new appointments: 08/17: labs and port access at 3PM followed by PET/CT at 3:30 08/22: follow up with Dr. Neevs and Keytruda infusion to follow Original Note: Call from patients daughter Latanya to discuss plan of care. Latanya is requesting we cancel the 07/18 labs, provider and infusion appointments for her mom. Elyssa is needing bilateral cataract surgery and is scheduled to have this done on Jul 24 and . Latanya is concerned that having the infusion done before will just be too much for her mom. Elyssa did not tolerate her last infusion well. Latanya is requesting we push out her appointments until the week of Aug 21. Latanya wishes to have another goals of care discussion at this visit. Treatments are becoming very difficult for Elyssa. I assured Latanya I would discuss with Dr. Neves next week and return her call to schedule follow up visits.
[2025-08-17 16:07] LABS: Hematocrit* 33.5 % (33.0-51.0); Hemoglobin* 10.9 gm/dL (12.0-16.0); Immature Granulocytes Abs Auto 0.02 K/uL (0.00-0.30); Immature Granulocytes Pct Auto 0.2 %; Mean Corpuscular HGB Conc 33 gm/dL (32-36); Mean Corpuscular Hemoglobin 30 pg (26-34); Mean Corpuscular Volume 91 fL (80-100); RDW Coefficient of Variation % 14.0 % (11.5-15.5); Red Blood Count* 3.68 m/uL (4.00-5.20); White Blood Count* 8.87 K/uL (4.50-11.00)
[2025-08-17 16:10] LABS: Lymphocytes Absolute Auto 1.70 K/uL (0.90-2.90); Slide Review Reflex No
[2025-08-17 16:23] LABS: Albumin* 3.9 g/dL (3.3-5.0); Chloride* 98 mmol/L (96-114); Potassium* 4.0 mmol/L (3.6-5.1); Sodium* 135 mmol/L (135-149)
[2025-08-17 16:26] LABS: Alanine Aminotransferase* 16 U/L (4-35); Alkaline Phosphatase* 67 U/L (40-150); Anion Gap 7 mEq/L (7-15); Aspartate Amino Transferase* 27 U/L (12-35); Bilirubin Total* 0.4 mg/dL (0.1-1.5); Blood Urea Nitrogen* 28 mg/dL (7-30); Calcium* 9.2 mg/dL (8.4-10.6); Carbon Dioxide* 30 mmol/L (20-32); Creatinine* 1.1 mg/dL (0.5-1.5); Est. Creatinine Clearance* 30.93; Estimated Glomerular Filt Rate 49 ml/min; Glucose* 107 mg/dL (60-115); Total Protein* 7.0 g/dL (6.0-8.3)
--- NOTE | 2025-08-23 13:56 | ONC.NURNOTE ---
Call to patients daughter Latanya to coordinate care. The primary focus of the patient and family is to maintain good quality of life. Their biggest concern is some short term memory loss that they have noticed over the past several months. Elyssa wants to give the Gemzar infusions a try. Per patients daughter, patient is not available to start until 09/06 and then the second infusion they want to delay until after Thanksgi. Appointments scheduled accordingly.
--- NOTE | 2025-09-05 14:16 | ONC.NURNOTE ---
Office Communication Professor talked with patient's daughter, she notes that patient has been feeling very run down over the last few days, with no appetite. No fever noted. She is wanting to delay restarting chemotherapy until after Thanksgiving at this time. She will keep her appointment that is schduled for 10/09/2025 and call back if she decides that she wants to start sooner. Patient's daughter, Latanya plans to make an appointment with her PCP for in the next couple of weeks. Again, they will reach out if they decide that patient would like to start sooner than 10/09, but for now they would like the schedule to stay as is.
== END 2025-09-19 23:59 | disposition home or self-care (01) ==
LOC: CCIC 10:30
PROVIDERS: Physician Assistant; PCP Family Medicine; Referring Provider Family Medicine; Visit Provider Internal Medicine Hematology & Oncology
DX: C50.912 Malignant neoplasm of unspecified site of left female breast (principal); Z17.0 Estrogen receptor positive status [ER+]; C77.3 Secondary and unspecified malignant neoplasm of axilla and upper limb lymph nodes; I48.91 Unspecified atrial fibrillation; Z79.01 Long term (current) use of anticoagulants
CPT/HCPCS: 36415; 36591; 78815; 80053; 84443; 85025; 96413; 99215; G0463; A9552; J1642; J9271